=== PATIENT | female | born 2000 | race Caucasian/White ===

== ENCOUNTER → 2024-10-06 | Outpatient (CLI) | payer OTHER, SELFPAY ==
[2024-10-06 17:11] LABS: Amphetamine Urine NEGATIVE (<1000 ng/mL); Barbiturate Urine NEGATIVE (< 200 ng/mL); Benzodiazepine Urine NEGATIVE (< 200 ng/mL); Buprenorphine Urine NEGATIVE (< 200 ng/mL); Cocaine Urine NEGATIVE (< 300 ng/mL); Fentanyl, Urine NEGATIVE; Methadone Urine NEGATIVE (< 300 ng/mL); Opiates Urine NEGATIVE (< 300 ng/mL); Oxycodone, Urine NEGATIVE (< 100 ng/mL); PCP Urine NEGATIVE (< 25 ng/mL); THC Urine NEGATIVE (< 50 ng/mL)
[2024-10-06 17:11] LABS: Absolute Lymphocyte Count 1.64 X10^3/uL (0.83-4.51); Absolute Neutrophil Count 4.7 X10^3/uL (2.0-7.7); Basophil# 0.03 X10^3/uL; Basophil% 0.4 % (0-1); Eosinophil# 0.03 X10^3/uL; Eosinophils% 0.4 % (0-5); Hematocrit 35.9 % (37-47); Hemoglobin 12.3 g/dL (12.0-15.0); Lymphocyte # 1.64 X10^3/ul (0.83-4.51); Lymphocyte % 23.6 % (19-41); Mean Corp Hgb Conc 34.3 g/dL (32-36); Mean Corpuscular Hgb 30.4 pg (27.0-32.0); Mean Corpuscular Volume 88.6 fL (81-99); Mean Platelet Vol. 9.4 fl (6.2-12.0); Monocyte# 0.47 X10^3/uL; Monocyte% 6.8 % (0-10); NRBC Flagged by Analyzer 0 % (0-5); Neutrophil # 4.68 X10^3/uL (2.7-7.7); Neutrophil % 67.5 % (47-70); Platelet Count 311 K/mm3 (150-450); RBC Distribution Width CV 11.8 % (11.6-14.6); RBC Distribution Width SD 37.7 fl (35.1-43.9); Red Blood Count 4.05 M/mm3 (4.2-5.4); White Blood Count 6.9 K/mm3 (4.4-11.0)
[2024-10-06 17:56] LABS: HIV Nonreactive (Nonreactive); Hepatitis B Surface Antigen Nonreactive (Nonreactive); Hepatitis C Antibody Nonreactive (Nonreactive); Rubella IgG REAC (Nonreactive); Syphilis Antibodies Nonreactive (Nonreactive)
[2024-10-10 00:07] LABS: Chlamydia By Nucleic Acid AMP Negative (Negative); Gonococcus By Nucleic Acid AMP Negative (Negative)
== END | disposition home or self-care (01) ==
PROVIDERS: Referring Provider Advanced Practice Midwife; Visit Provider Advanced Practice Midwife
DX: O99.320 Drug use complicating pregnancy, unspecified trimester (principal); O09.90 Supervision of high risk pregnancy, unspecified, unspecified trimester; F12.91 Cannabis use, unspecified, in remission; Z3A.00 Weeks of gestation of pregnancy not specified
CPT/HCPCS: 36415; 80307; 85025; 86703; 86762; 86780; 86803; 86850; 86900; 86901; 87086; 87340; 87491; 87591; 88175; G0145

== ENCOUNTER → 2025-02-14 | Outpatient (CLI) | payer OTHER, SELFPAY ==
[2025-02-14 15:54] LABS: Hematocrit 31.6 % (37-47); Hemoglobin 10.7 g/dL (12.0-15.0); Immature Granulocytes Count 0.090 X10^3/uL (0.0-0.0); Mean Corp Hgb Conc 33.9 g/dL (32-36); Mean Corpuscular Volume 90.0 fL (81-99); Mean Platelet Vol. 8.9 fl (6.2-12.0); NRBC Flagged by Analyzer 0 % (0-5); Platelet Count 271 K/mm3 (150-450); RBC Distribution Width CV 12.3 % (11.6-14.6); RBC Distribution Width SD 39.9 fl (35.1-43.9); Red Blood Count 3.51 M/mm3 (4.2-5.4); White Blood Count 9.6 K/mm3 (4.4-11.0)
[2025-02-14 16:45] LABS: HIV Nonreactive (Nonreactive); Syphilis Antibodies Nonreactive (Nonreactive)
[2025-02-14 16:46] LABS: Glucose Challenge Gest 1H 50g 99 mg/dL (70-140)
== END | disposition home or self-care (01) ==
LOC: BWCLAB 13:03
PROVIDERS: Referring Provider Advanced Practice Midwife; Visit Provider Advanced Practice Midwife
DX: O09.92 Supervision of high risk pregnancy, unspecified, second trimester (principal); Z3A.23 23 weeks gestation of pregnancy
CPT/HCPCS: 36415; 82950; 85025; 86703; 86780

== ENCOUNTER → 2025-04-18 | Outpatient (CLI) | payer OTHER, SELFPAY | END | disposition home or self-care (01) | LOC: LABSPEC 12:30 | PROVIDERS: Referring Provider Nurse Practitioner Women's Health; Visit Provider Nurse Practitioner Women's Health | DX: O09.92 Supervision of high risk pregnancy, unspecified, second trimester (principal) | CPT/HCPCS: 87081 ==

== ENCOUNTER 2025-05-18 13:05 | Inpatient (IN) | payer OTHER, SELFPAY ==
[2025-05-18] VITALS (51 sets, daily range): BP systolic 73–142; BP diastolic 40–77; PULSE 64–121; RESP 16–17; TEMP 35.8–36.8; O2SAT 97–100; BMI 30.4
[2025-05-18 10:54] LABS: ROM Internal Control Test YES-OK TO RESULT pt. (Internal QC); ROM Patient Test Negative (Negative); Record Kit Lot#, ROM+ K3607
[2025-05-18] MEDS: 0.9% Saline Lock 10 ML Syringe IV (15:06)
[2025-05-18] MEDS: Lactated Ringers 1,000 ML 50 ML IV (15:06)
[2025-05-18 15:26] LABS: Hematocrit 36.4 % (37-47); Hemoglobin 12.6 g/dL (12.0-15.0); Immature Granulocytes Count 0.060 X10^3/uL (0.0-0.0); Mean Corp Hgb Conc 34.6 g/dL (32-36); Mean Corpuscular Volume 86.9 fL (81-99); Mean Platelet Vol. 9.3 fl (6.2-12.0); NRBC Flagged by Analyzer 0 % (0-5); Platelet Count 235 K/mm3 (150-450); RBC Distribution Width CV 13.8 % (11.6-14.6); RBC Distribution Width SD 43.0 fl (35.1-43.9); Red Blood Count 4.19 M/mm3 (4.2-5.4); White Blood Count 10.4 K/mm3 (4.4-11.0)
[2025-05-18 15:46] LABS: Syphilis Antibodies Nonreactive (Nonreactive)
[2025-05-18] MEDS: Lactated Ringers 1,000 ML 999 ML IV (16:07)
--- NOTE | 2025-05-18 16:12 | HP.PCM.OB_ITS ---
HPI - General General Date of Admission: 05/18/25 HPI Narrative TORREY MANCILLA, is a 25 F who presented with possible ROM. Membranes were found to be intact but she made change from 3 to 4cm while in triage so was admitted for active labor. GBS negative. Good movement. No vaginal bleeding. Maternal Data Information WANG Calculator Estimated Delivery Date Method Current WG Current Estimate 05/16/25 LMP (Certain) 40w 2d Other Estimates 05/19/25 Ultrasound #1 39w 6d PFSH PFSH Medical History Sports physical Home Medications ?Medication ?Instructions ?Recorded ?Last Taken ?Type [id number] 400 mcg-om3 35 mg-dha 25 1 tab PO DAILY pregn emily 09/22/24 05/17/25 History mg-epa 5 mg-fish oil chewable tablet magnesium glycinate 100 mg (as 100 mg PO QDAY 09/22/24 Unknown History glycinate) tablet famotidine 20 mg tablet (Pepcid) 20 mg PO BID #60 tabs 03/01/25 Unknown Rx Allergy/AdvReac Type Severity Reaction Status Date / Time house dust Allergy Mild sneezes Verified 05/18/25 10:25 Surgical History History of surgery Social History adopted: No household members: spouse number of children: 0 current occupational status: employed current occupation: [employer] pets and animals: No history of recent travel: No sexually active: Yes Smoking Status: Never smoker Tobacco: How many years used: 4 Smokeless tobacco user: other second hand exposure: No alcohol intake: never substance use type: marijuana and other details: June 2024 well-balanced diet: rarely or never caffeine: No eating out: 1-3 times/week what type of physical activity do you participate in: walking, weight training and other 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: 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 frequency: 5-6 times per week duration: > 90 minutes/day carmen/zoroastrianism: Baptism seatbelt use: always do you feel safe at home: Yes additional social history: [employer] History 1 Elective abortions Hx Para 0 Spontaneous abortions Hx # Term Pregnancies Ectopic pregnancies Hx # Pregnancies Multiple births # of living children 0 Visit Details Expected Delivery Route/Plan Labor Preferences- CB/BF classes: encouraged labor support person: Chip labor intervention preferences: pain management options preferred: epidural cut cord/dad catch: yes : yes PP control planned: discussed discussed possible routes of delivery and associated risks: [] special requests: [] Plans Covid status: [] Flu vaccine: done Tdap vaccine: given Rhogam: na LARC form signed: yes movement and labor precautions reviewed. Problem list reviewed and updated with the most current plan of care details and appropriate orders placed. Relevant counseling for the gestational age provided. Continue routine care and follow up unless otherwise noted in visit notes/problem list details OB Flowsheet Initial Weight: 133 lb Date -?-?-?-?-?-?-?-?-?-?-?-?- EGA Weight BP Urine Prot -?-?-?-?-?-?-?-?-?-?-?-?- Glucose FHR FuHt Pres Dilation -?-?-?-?-?-?-?-?-?-?-?-?- Effaced St Visit Note 10/06/24 -?-?-?-?-?-?-?-?-?-?-?-?- 8w 2d 133 lb 4 oz (+4 oz) 127/78 -?-?-?-?-?-?-?-?-?-?-?-?- 160 -?-?-?-?-?-?-?-?-?-?-?-?- KW- CRL cons wit h dates. declines NIPT 11/03/24 -?-?-?-?-?-?-?-?-?-?-?-?- 12w 2d 135 lb 6 oz (+2 lb 6 oz) 136/80 Negative -?-?-?-?-?-?-?-?-?-?-?-?- Negative 157 -?-?-?-?-?-?-?-?-?-?-?-?- JV- no cramping or spotting. no concerns. declines nipt. 11/29/24 -?-?-?-?-?-?-?-?-?-?-?-?- 16w 0d 142 lb 2 oz (+9 lb 2 oz) 120/76 Negative -?-?-?-?-?-?-?-?-?-?-?-?- Negative 163 -?-?-?-?-?-?-?-?-?-?-?-?- MH-No VB. Feels well. Brief US confirm FHT. 12/29/24 -?-?-?-?-?-?-?-?-?-?-?-?- 20w 2d 149 lb 8 oz (+16 lb 8 oz) 126/86 Negative -?-?-?-?-?-?-?-?-?-?-?-?- Negative 150 -?-?-?-?-?-?-?-?-?-?-?-?- SM- no vb lof go od fm no reulga rctx 01/23/25 -?-?-?-?-?-?-?-?-?-?-?-?- 23w 6d 160 lb 4 oz (+27 lb 4 oz) 124/76 Negative -?-?-?-?-?-?-?-?-?-?-?-?- Negative 140 24 -?-?-?-?-?-?-?-?-?-?-?-?- KW- No vb/alice ng. +fm. glucose and weight gain discussed. 02/14/25 -?-?-?-?-?-?-?-?-?-?-?-?- 27w 0d 169 lb 3 oz (+36 lb 3 oz) 116/72 Negative -?-?-?-?-?-?-?-?-?-?-?-?- Negative 145 27 -?-?-?-?-?-?-?-?-?-?-?-?- MH-No VB, LOF. G ood FM. Larc. 28 wk labs pending 03/01/25 -?-?-?-?-?-?-?-?-?-?-?-?- 29w 1d 172 lb 4 oz (+39 lb 4 oz) 121/74 Negative -?-?-?-?-?-?-?-?-?-?-?-?- Negative 135 30 -?-?-?-?-?-?-?-?-?-?-?-?- JV- no lof, vagi nal bleeding, or dec fm. indigestion getting worse. pepcid script sent in. 03/14/25 -?-?-?-?-?-?-?-?-?-?-?-?- 31w 0d 176 lb 7 oz (+43 lb 7 oz) 129/81 Negative -?-?-?-?-?-?-?-?-?-?-?-?- Negative 131 31 -?-?-?-?-?-?-?-?-?-?-?-?- KW- no vb/lof/ct x. good fm. Tdap today. declines flu vaccine. 03/29/25 -?-?-?-?-?-?-?-?-?-?-?-?- 33w 1d 177 lb 4 oz (+44 lb 4 oz) 132/79 Negative -?-?-?-?-?-?-?-?-?-?-?-?- Negative 130 32 Cephalic -?-?-?-?-?-?-?-?-?-?-?-?- JV- no lof, vagi nal bleeding, or dec fm. flu shot today. 04/11/25 -?-?-?-?-?-?-?-?-?-?-?-?- 35w 0d 179 lb 8 oz (+46 lb 8 oz) 115/75 Negative -?-?-?-?-?-?-?-?-?-?-?-?- Negative 130 35 Cephalic -?-?-?-?-?-?-?-?-?-?-?-?- SM- no vb lof go od fm no reuglar ctx 04/18/25 -?-?-?-?-?-?-?-?-?-?-?-?- 36w 0d 182 lb 6 oz (+49 lb 6 oz) 122/79 Negative -?-?-?-?-?-?-?-?-?-?-?-?- Negative 145 36 Cephalic 0 -?-?-?-?-?-?-?-?-?-?-?-?- 40 -3 MH-No VB, LOF, reg CTX. GBS done 04/24/25 -?-?-?-?-?-?-?-?-?-?-?-?- 36w 6d 184 lb 1 oz (+51 lb 1 oz) 118/76 Negative -?-?-?-?-?-?-?-?-?-?-?-?- Negative 145 38 Cephalic 1 -?-?-?-?-?-?-?-?-?-?-?-?- 60 -2 KW- no vb/ lof/ctx. good fm. gbs neg. 05/02/25 -?-?-?-?-?-?-?-?-?-?-?-?- 38w 0d 184 lb 8 oz (+51 lb 8 oz) 129/81 Negative -?-?-?-?-?-?-?-?-?-?-?-?- Negative 135 39 Cephalic 1 .5 -?-?-?-?-?-?-?-?-?-?-?-?- 70 -2 JV- no lof , vaginal bleeding or dec fm. patient worried baby is too big. measuring only a cm ahead but will get growth scan. 05/10/25 -?-?-?-?-?-?-?-?-?-?-?-?- 39w 1d 183 lb 8 oz (+50 lb 8 oz) 129/85 Negative -?-?-?-?-?-?-?-?-?-?-?-?- Negative 120 39 Cephalic 3 -?-?-?-?-?-?-?-?-?-?-?-?- 70 -1 SM- feelin g better about baby's size, doens't want US. no vb lof good fm irregular ctx. membranes swept. 05/16/25 -?-?-?-?-?-?-?-?-?-?-?-?- 40w 0d 189 lb 4 oz (+56 lb 4 oz) 134/83 Negative -?-?-?-?-?-?-?-?-?-?-?-?- Negative 139 40 Cephalic 3 -?-?-?-?-?-?-?-?-?-?-?-?- 80 -2 JV- no lof , vaginal bleeding, or dec fm. requesting IOL thursday NST FHR Rate Baby A Baseline: 125 Variability:: Moderate Accelerations:: 15 x 15 Decelerations:: None NST Reactive:: Yes FHR Category:: Category I Uterine Activity:: q3-5 minutes ROS Constitutional Constitutional: Reports systems reviewed and no addt'l complaints, except as documented Vital Signs Vital Signs Vital Signs: 05/18/25 10:31 05/18/25 10:31 05/18/25 10:31 Temperature Temperature Source Pulse Rate 95 Respiratory Rate Blood Pressure 125/73 H BP Systolic 125 BP Diastolic 73 Pulse Ox 97 05/18/25 10:31 05/18/25 14:40 05/18/25 14:40 Temperature 96.6 F L Temperature Source Temporal Pulse Rate 117 H Respiratory Rate Blood Pressure BP Systolic BP Diastolic Pulse Ox 05/18/25 14:40 05/18/25 14:40 05/18/25 14:40 Temperature 98.2 F Temperature Source Pulse Rate Respiratory Rate 16 Blood Pressure BP Systolic BP Diastolic Pulse Ox 98 05/18/25 14:41 05/18/25 14:41 Temperature Temperature Source Pulse Rate 98 Respiratory Rate Blood Pressure 124/70 H BP Systolic 124 BP Diastolic 70 Pulse Ox Weight Weight: 188 lb 4 oz Body Mass Index (BMI) 30.4 PRE- weight 133 lb PRE- Body Mass Index 21.4 (BMI) Physical Exam Const alert and no apparent distress HEENT normocephalic Head and Scalp: atraumatic Neck full ROM and supple Resp normal respiratory effort GI non-tender Inspection: gravid Narrative: most recent SVE 4cm Extremity normal to inspection General Extremity: Negative for calf tenderness Labs Labs Labs: Blood Type O POSITIVE Antibody Screen NEGATIVE Hct, (37-47) 36.4 % L Hgb, (12.0-15.0) 12.6 g/dL Syphilis Total Ab, (Nonreactive) Nonreactive Rubella IgG Antibody, (Nonreactive) REAC Hep Bs Antigen, (Nonreactive) Nonreactive Hepatitis C Antibody, (Nonreactive) Nonreactive Chlamydia DNA (FELICE), (Negative) Negative N.gonorrhoeae DNA (FELICE), (Negative) Negative HIV 1&2 Antibody, (Nonreactive) Nonreactive Glucose 1 Hr 50 gm, (70-140) 99 mg/dL Assessment & Plan (1) Labor and delivery indication for care or intervention: PLAN: Patient presents IAL, plan expectant management for , pitocin/AROM PRN Pain management: plans epidural. GBS negative. Management of any complications: none I have reviewed the [facility] and made any clinically relevant updates. (2) : QUALIFIERS: Weeks of gestation: 40 weeks Qualified Code(s): Z3A.40 - 40 weeks gestation of COMMENT: Neg GBS. declines NIPT, carrier and AFP, normal anatomy/consistent dates (3) History of marijuana use: COMMENT: daily, quit 06/2024. counseling provided. aware of random drug testing
[2025-05-18] MEDS: fentaNYL-bupivacaine (epidural) 100 ML BAG EPIDURAL ×2 (17:09→21:38)
[2025-05-18] MEDS: LACTATED RINGERS 500 ML 999 ML IV (18:17)
[2025-05-18] MEDS: Oxytocin 15 Units/NS 250ml 15 UNITS/250 ML IV.SOLN 2 UNITS IV (21:09)
[2025-05-18] MEDS: Lactated Ringers 1,000 ML 200 ML IV (21:09)
--- NOTE | 2025-05-18 22:20 | PCM.PN.BLA ---
Progress Note Patient comfortable with epidural. AROM performed at 1742 for small amount of clear fluid. IUPC placed by Katherine Ramesh RN and pitocin started due to no further cervical change. Assessment & Plan Assessment/Plan (1) Labor and delivery indication for care or intervention: PLAN: Continue titrating pitocin as needed. Anticipate tonight. NST FHR Rate Baby A Baseline: 120 Variability:: Moderate Accelerations:: 15 x 15 Decelerations:: Variable (isolated) NST Reactive:: Yes FHR Category:: Category I (overall) Uterine Activity:: q2-4 minutes, adequate MVUs
[2025-05-19] VITALS (36 sets, daily range): BP systolic 90–133; BP diastolic 56–79; PULSE 81–114; RESP 14–16; TEMP 36.4–37.2; O2SAT 97–98
--- OUTSIDE RECORDS SUMMARY | 2025-05-19 02:28 | XMS RPT_ITS | CCD ---
Author Organization [facility] Team Providers Care Science Instructor Name Role Phone Duy PERSAUD, Adan Edmonds Primary Care Provider EZ PINEDA Attending Unavailable ADAN BABCOCK Primary Care Unavailable Joceline Grande CNM Attending Provider [phone]) Joceline Grande CNM Referring Provider 1(330) Dr. Maribel Martínez DO Attending Provider Garima Becker Attending Provider [phone] LISA PRIMARY CAREMD Primary Care Unavailable LYN QUINN Attending Unavailable MARIBEL PATEL Referring Unavailab Dr. Lovely May MD Attending Provider [phone] Joceline Grande CNM Attending Provider [phone](330) Joceline Grande CNM Referring Provider 1(330) Dr. Maribel Martínez DO Attending Provider Dr. Lovely Arguello MD Attending Physician Joceline Grande CNM Attending Physician [phone] Garima Becker Attending Physician [phone] Dr. Maribel Martínez DO Attending Physician Garima Becker Referring Provider Joceline Grande CNM Attending Physician Amparo POMPA-Garima Cuellar Attending Physician [phone] Joceline Grande CNM Referring Provider [phone](330) Dr. Maribel Martínez DO Attending Physician Dr. Lovely Arguello MD Attending Physician Amparo POMPA-Garima Cuellar Referring Provider Maribel Martínez Attending UnavailJoceline Rasmussen Attending Unavailable Joceline Grande Referring Unavailable Joceline Grande Attending Unavailable Altagracia Chew, Maribel Attending UnavailLovely Manjarrez Attending Unavailable Amparo POMPA, Garima Attending Unavailable Joceline Grande Attending Unavailable Altagracia Chew, Maribel Attending UnavailJoceline Rasmussen Attending Unavailable Lovely Arguello Attending Unavailable Lovely Arguello Attending Unavailable Amparo FITTER [employer] TURNER, aGrima Attending Unavailable Joceline Grande Attending Unavailable Altagracia Chew, Maribel Attending Unavailtoni Christensen NP, Garima Attending Unavailable Altagracia Chew, Maribel Attending Unavailtoni Christensen NP, Garima Attending Unavailable Amparo POMPA, Garima Referring Unavailable Joceline Grande Referring Unavailable Joceline Grande Attending Unavailable Allergies Allergy Classification Reported Allergen(s) Allergy Type Date of Onset Reaction(s) Facility (11 sources) house dust allergenic extract Drug Allergy 10-06-2024 [facility] (1 source) house dust allergenic extract Drug Allergy 05-10-2025 [facility] Repository Medications Current Medications Medication Drug Class(es) Dates Sig (Normalized) Sig (Original) Ethinyl Estradiol / Ferrous fumarate / Norethindrone (4 sources) Estrogen Start: 02-18-2022 norethindrone-ethi nyl estradiol (Camron Fe 07/18) 1-20 MG-MCG tablet 02/18/2022 Active Start: 02-18-2022 norethindrone- ethinyl estradiol (Camron Fe 07/18) 1-20 MG-MCG tablet famotidine 20 mg oral tablet (5 sources) Histamine-2 Receptor Antagonist Start: 03-01-2025 take 1 tablet by mouth twice daily Famotidine (Pepcid) 20 mg tablet Active 20 mg PO TWICE A DAY 60 4 February 28, 2025 11:00pm Complies with drug therapy magnesium glycinate 100 mg oral tablet (11 sources) Start: 09-22-2024 take 1 tablet by mouth once daily Magnesium Glycinate 100 mg tablet Active 100 mg PO daily September 21, 2024 11:00pm Complies with drug therapy [id number]-Bp-[id number]-Mbs-D pa-Fish Oil 400 mcg-35 mg -25 mg-5 mg tablet,chewable (11 sources) Start: 09-22-2024 Atr77-If-Af9-K henry- Epa-Fish Oil 400 mcg-35 mg -25 mg-5 mg tablet,chewable Active {tbl} PO September 21, 2024 11:00pm Complies with drug therapy Start: 09-22-2024 [id number]-Mt-Zf2-W henry-Epa-Fish Oil 400 mcg-35 mg -25 mg-5 mg tablet,chewable Active {tbl} PO September 22, 2024 12:00am Complies with drug therapy Start: 09-22-2024 [id number]-Pp-Eq5-I henry-Epa-Fish Oil 400 mcg-35 mg -25 mg-5 mg tablet,chewable Active {tbl} PO September 22, 2024 12:00am spironolactone 50 mg oral tablet (4 sources) Aldosterone Antagonist Start: 01-02-2023 take 1 tablet by mouth once daily spironolactone (Aldactone) 50 MG tablet Take 50 mg by mouth daily. 01/02/2023 Active SUMAtriptan 25 mg oral tablet (4 sources) Serotonin-1b and Serotonin-1d Receptor Agonist Start: 01-05-2023 SUMAtriptan (Imitrex) 25 MG tablet Indications: Sudden onset unilateral headache Take 1 tablet (25 mg) by mouth Once as needed for migraine for up to 30 doses. May repeat dose once in 2 hours if no relief. Do not exceed 2 doses in 24 hours. 30 tablet 01/05/2023 Active Problems Active Problems Problem Classification Problem Date Documented Date Episodic/Chronic Administrative/social admission (11 sources) Special examination status; Translations: [Encounter for examination for participation in sport] 09-22-2024 Episodic Conditions associated with dizziness or vertigo (1 source) Dizziness; Translations: [Dizziness and giddiness] 01-05-2023 Episodic Immunizations and screening for infectious disease (2 sources) Requires diphtheria, tetanus and pertussis vaccination; Translations: [Encounter for immunization] Onset: 03-14-2025 02-02-2023 Episodic Nausea and vomiting (1 source) Nausea and vomiting; Translations: [Nausea with vomiting, unspecified] 07-10-2023 Episodic Other complications of (20 sources) High risk ; Translations: [Supervision of high risk , unspecified, unspecified trimester] 10-10-2024 Episodic Comment on above: PRR, , WANG 05/16 Chip PRR, , WANG 05/16 girl Chip Other complications of (1 source) Excessive growth affecting management of mother; Translations: [Maternal care for excessive growth, unspecified trimester, not applicable or unspecified] 05-02-2025 Episodic Other complications of (1 source) Supervision of high risk , unspecified, second trimester; Translations: [Supervision of high risk , unspecified, second trimester] Onset: 05-10-2025 Episodic Other complications of (1 source) Maternal care for excessive growth, unspecified trimester, not applicable or unspecified; Translations: [Maternal care for excessive growth, unspecified trimester, not applicable or unspecified] Onset: 05-02-2025 Episodic Other ear and sense organ disorders (2 sources) Impacted cerumen, right ear; Translations: [Impacted cerumen, right ear] Onset: 08-15-2024 Episodic Other ear and sense organ disorders (2 sources) Impacted cerumen in right ear; Translations: [Impacted cerumen, right ear] Onset: 08-15-2024 08-15-2024 Episodic Other and delivery including normal (20 sources) ; Translations: [Encounter for supervision of normal , unspecified, unspecified trimester] 10-06-2024 Episodic Comment on above: declines NIPT declines NIPT, aditya er and AFP declines NIPT, aditay er and AFP, normal anatomy/consistent dates Neg GBS. declines NI PT, carrier and AFP, normal anatomy/consistent dates Residual codes; unclassified (1 source) 39 weeks gestation of ; Translations: [39 weeks gestation of ] Onset: 05-10-2025 Episodic Residual codes; unclassified (1 source) 38 weeks gestation of ; Translations: [38 weeks gestation of ] Onset: 05-02-2025 Episodic Residual codes; unclassified (1 source) 36 weeks gestation of ; Translations: [36 weeks gestation of ] Onset: 04-24-2025 Episodic Residual codes; unclassified (1 source) 31 weeks gestation of ; Translations: [31 weeks gestation of ] Onset: 03-14-2025 Episodic Residual codes; unclassified (1 source) 29 weeks gestation of ; Translations: [29 weeks gestation of ] Onset: 03-01-2025 Episodic Substance-related disorders (20 sources) History of clinical finding in subject; Translations: [History of marijuana use] 09-22-2024 Chronic Comment on above: daily, quit 06/2024. counseling provided. aware of random drug testing Unclassified (1 source) Cannabis use, unspecified, in remission; Translations: [Cannabis use, unspecified, in remission] Onset: 05-10-2025 Past or Other Problems Problem Classification Problem Date Documented Da te Episodic/Chronic Abdominal pain (7 sources) Pain in pelvis; Translations: [Pelvic and perineal pain] Onset: 04-01-2022 Resolved: 01-05-2023 04-10-2022 Episodic Headache; including migraine (6 sources) Headache; Translations: [Sudden onset unilateral headache] Onset: 01-05-2023 01-05-2023 Episodic Other complications of (1 source) Supervision of high risk , unspecified, unspecified trimester; Translations: [Supervision of high risk , unspecified, unspecified trimester] Onset: 10-06-2024 Episodic Other screening for suspected conditions (not mental disorders or infectious disease) (2 sources) Patient encounter status; Translations: [Encounter for screening for malignant neoplasm of cervix] Onset: 10-06-2024 02-02-2023 Episodic Residual codes; unclassified (1 source) 23 weeks gestation of ; Translations: [23 weeks gestation of ] Onset: 01-23-2025 Episodic Residual codes; unclassified (1 source) 8 weeks gestation of ; Translations: [8 weeks gestation of ] Onset: 10-06-2024 Episodic Substance-related disorders (1 source) Drug use complicating , unspecified trimester; Translations: [Drug use complicating , unspecified trimester] Onset: 11-01-2024 Episodic Urinary tract infections (7 sources) Acute cystitis; Translations: [Acute cystitis with hematuria] Onset: 04-01-2022 Resolved: 01-05-2023 04-10-2022 Episodic Results Test Name Value Interpretation Reference Range Facility Senior Materials [facility]anner Office Visit Reporton 05-10-2025 Senior Materials Planner Office Visit Report [facility] [address], [address] [place] [address] OFFICE VISIT Date of Service: 05/10/25 MR#: [id number] Acct: [id number] Name: NICA MANCILLA Rep #: [id number] 8 : 2000 Provider: Dr. Lovely meeks MD Age/Sex: 25/F Location: [facility] [place], [place] Status: Signed Intake Vital Signs 03/14/25 09:38 05/02/25 09:47 05/10/25 11:27 Height 5 ft 6.5 in 5 ft 6.5 in 5 ft 6.5 in Weight: 183 lb 8 oz BMI 29.1 BP 129/85 H Intake Visit Reasons: 39wk ob Automatic Profile Shaper Operator Required: No Allergies house dust Allergy (Mild, Verified 05/10/25 11:28) sneezes Medications ???Medication ???Instructions ???Recorded ???Confirmed ???Type [id number] 400 mcg-om3 35 mg-dha 25 tab PO 09/22/24 05/10/25 History mg-epa 5 mg-fish oil chewable tablet magnesium glycinate 100 mg (as 100 mg PO QDAY 09/22/24 05/10/25 H istory glycinate) tablet famotidine 20 mg tablet (Pepcid) 20 mg PO BID #60 tabs 03/01/2506/22 Rx Last Menstrual Period: 08/09/24 Zika: Zika virus screening: Negative : No PFSH PFSH Medical History Sports physical Social History adopted: No household members: spouse number of children: 0 current occupational status: employed current occupation: [employer] pets and animals: No history of recent travel: No sexually active: Yes Smoking Status: Former smoker Tobacco: How many years used: 4 Smokeless tobacco user: other second hand exposure: No alcohol intake: never substance use type: marijuana and other details: June 2024 well-balanced diet: rarely or never caffeine: No eating out: 1-3 times/week what type of physical activity do you participate in: walking, weight training and other details: 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 OB Visit WANG Calculator Estimated Delivery Date Method Current WG Current Estimate 05/16/25 LMP (Certain) 39w 1d Other Estimates 05/19/25 Ultrasound #1 38w 5d Expected Delivery Route/Plan Labor Preferences- CB/BF classes: encouraged labor support person: Chip labor intervention preferences: pain management options preferred: epidural cut cord/dad catch: yes : yes PP control planned: discussed discussed possible routes of delivery and associated risks: [] special requests: [] Specific Issue/Plans Covid status: [] Flu vaccine: done Tdap vaccine: given Rhogam: na LARC form signed: yes movement and labor precautions reviewed. Problem list reviewed and updated with the most current plan of care details and appropriate orders placed. Relevant counseling for the gestational age provided. Continue routine care and follow up unless otherwise noted in visit notes/problem list details Initial Weight: 133 lb Date -???-???-???-???-?? ?-???-???-???-???-? ??-???-???- EGA Weight BP Urine Prot -???-???-???-???-?? ?-???-???-???-???-? ??-???-???- Glucose FHR FuHt Pres Dilation -???-???-???-???-?? ?-???-???-???-???-? ??-???-???- Effaced St Visit Note 10/06/24 -???-???-???-???-?? ?-???-???-???-???-? ??-???-???- 8w 2d 133 lb 4 oz (+4 oz) 127/78 -???-???-???-???-?? ?-???-???-???-???-? ??-???-???- 160 -???-???-???-???-?? ?-???-???-???-???-? ??-???-???- KW- CRL cons with dates. declines NIPT 11/03/24 -???-???-???-???-?? ?-???-???-???-???-? ??-???-???- 12w 2d 135 lb 6 oz (+2 lb 6 oz) 136/80 Negative -???-???-???-???-?? ?-???-???-???-???-? ??-???-???- Negative 157 -???-???-???-???-?? ?-???-???-???-???-? ??-???-???- JV- no cramp ing or spotting. no concerns. declines nipt. 11/29/24 -???-???-???-???-?? ?-???-???-???-???-? ??-???-???- 16w 0d 142 lb 2 oz (+9 lb 2 oz) 120/76 Negative -???-???-???-???-?? ?-???-???-???-???-? ??-???-???- Negative 163 -???-???-???-???-?? ?-???-???-???-???-? ??-???-???- -No VB. Fe els well. Brief US confirm FHT. 12/29/24 -???-???-???-???-?? ?-???-???-???-???-? ??-???-???- 20w 2d 149 lb 8 oz (+16 lb 8 oz) 126/86 Negative -???-???-???-???-?? ?-???-???-???-???-? ??-???-???- Negative 150 -???-???-???-???-?? ?-???-???-???-???-? ??-???-???- SM- no vb lo f good fm no reulga rctx 01/23/25 -???-???-???-???-?? ?-???-???-???-???-? ??-???-???- (more content not included)... Normal [facility] Laboratory - Chemistry and C hemistry - challengeOrdered By: Maribel Chew on 05-02-2025 Glucose Ql (U) Negative [facility] Laboratory - UrinalysisOrder ed By: Maribel Chew on 05-02-2025 Protein Ql (U) Negative [facility] Senior Materials Planner Office Visit Reporton 05-02-2025 Senior Materials Planner Office Visit Report [facility] [address], [address] [place] [address] OFFICE VISIT Date of Service: 05/02/25 MR#: [id number] Acct: [id number] Name: NICA MANCILLA Rep #: [id number] 4 : 2000 Provider: Dr. Maribel Sidhu DO Age/Sex: 25/F Location: [facility] [place], [place] Status: Signed Intake Vital Signs 03/14/25 09:38 04/24/25 10:59 05/02/25 09:47 Height 5 ft 6.5 in 5 ft 6.5 in 5 ft 6.5 in Weight: 184 lb 8 oz BMI 29.3 BP 129/81 H Intake Visit Reasons: 38wk ob Chief Complaint: 38wk OB Automatic Profile Shaper Operator Required: No Is patient in pain?: No Allergies house dust Allergy (Mild, Verified 05/02/25 09:46) sneezes Medications ???Medication ???Instructions ???Recorded ???Confirmed ???Type [id number] 400 mcg-om3 35 mg-dha 25 tab PO 09/22/24 05/02/25 History mg-epa 5 mg-fish oil chewable tablet magnesium glycinate 100 mg (as 100 mg PO QDAY 09/22/24 05/02/25 H istory glycinate) tablet famotidine 20 mg tablet (Pepcid) 20 mg PO BID #60 tabs 03/01/2510/21 Rx Last Menstrual Period: 08/09/24 : No Have you fallen in the past year?: No PFSH PFSH Medical History Sports physical Social History adopted: No household members: spouse number of children: 0 current occupational status: employed current occupation: [employer] pets and animals: No history of recent travel: No sexually active: Yes Smoking Status: Former smoker Tobacco: How many years used: 4 Smokeless tobacco user: other second hand exposure: No alcohol intake: never substance use type: marijuana and other details: June 2024 well-balanced diet: rarely or never caffeine: No eating out: 1-3 times/week what type of physical activity do you participate in: walking, weight training and other details: 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 frequency: 5-6 times per week duration: > 90 minutes/day carmen/jain: Rastafari seatbelt use: always do you feel safe at home: Yes additional social history: [employer] - [employer] History 1 Elective abortions Hx Para 0 Spontaneous abortions Hx # Term Pregnancies Ectopic pregnancies Hx # Pregnancies Multiple births # of living children 0 HPI 38wk ob Details: NICA MANCILLA is a 25 year old who presents for routine OB visit. OB Visit WANG Calculator Estimated Delivery Date Method Current WG Current Estimate 05/16/25 LMP (Certain) 38w 0d Other Estimates 05/19/25 Ultrasound #1 37w 4d Expected Delivery Route/Plan Labor Preferences- CB/BF classes: encouraged labor support person: Chip labor intervention preferences: pain management options preferred: epidural cut cord/dad catch: yes : yes PP control planned: discussed discussed possible routes of delivery and associated risks: [] special requests: [] Specific Issue/Plans Covid status: [] Flu vaccine: done Tdap vaccine: given Rhogam: na LARC form signed: yes movement and labor precautions reviewed. Problem list reviewed and updated with the most current plan of care details and appropriate orders placed. Relevant counseling for the gestational age provided. Continue routine care and follow up unless otherwise noted in visit notes/problem list details Initial Weight: 133 lb Date -???-???-???-???-?? ?-???-???-???-???-? ??-???-???- EGA Weight BP Urine Prot -???-???-???-???-?? ?-???-???-???-???-? ??-???-???- Glucose FHR FuHt Pres Dilation -???-???-???-???-?? ?-???-???-???-???-? ??-???-???- Effaced St Visit Note 10/06/24 -???-???-???-???-?? ?-???-???-???-???-? ??-???-???- 8w 2d 133 lb 4 oz (+4 oz) 127/78 -???-???-???-???-?? ?-???-???-???-???-? ??-???-???- 160 -???-???-???-???-?? ?-???-???-???-???-? ??-???-???- KW- CRL cons with dates. declines NIPT 11/03/24 -???-???-???-???-?? ?-???-???-???-???-? ??-???-???- 12w 2d 135 lb 6 oz (+2 lb 6 oz) 136/80 Negative -???-???-???-???-?? ?-???-???-???-???-? ??-???-???- Negative 157 -???-???-???-???-?? ?-???-???-???-???-? ??-???-???- JV- no cramp ing or spotting. no concerns. declines nipt. 11/29/24 -???-???-???-???-?? ?-???-???-???-???-? ??-???-???- 16w 0d 142 lb 2 oz (+9 lb 2 oz) 120/76 Negative -???-???-???-???-?? ?-???-???-???-???-? ??-???-???- Negative 163 -???-???-???-???-?? ?-???-???-???-???-? ??-???-???- MH-No VB. Fe els well. Brief US confirm FHT. 12/29/24 -???-???-???-???-?? ?-???-???-???-???-? ??-???-???- 20w 2d 149 lb 8 oz (+16 lb 8 oz) 126/86 Negative -???-???-???-???-?? ?-???-???-???-???-? ??-???-???- Negative 150 -???-???-???-???-?? ?-???-???-???-???-? ??-???-???- SM- no vb lo f good fm no reulga rctx 01/23/25 - (more content not included)... Normal [facility] Laboratory - Chemistry and C hemistry - challengeOrdered By: Joceline Grande on 04-24-2025 Glucose Ql (U) Negative [facility] Laboratory - UrinalysisOrder ed By: Joceline Grande on 04-24-2025 Protein Ql (U) Negative [facility] Senior Materials Planner Office Visit Reporton 04-24-2025 Senior Materials Planner Office Visit Report [facility] [address], [address] [place] [address] OFFICE VISIT Date of Service: 04/24/25 MR#: [id number] Acct: [id number] Name: NICA MANCILLA Rep #: [id number] 3 : 2000 Provider: ARNIE Felton ams Age/Sex: 25/F Location: [facility] [place], [place] Status: Signed Intake Vital Signs 03/14/25 09:38 04/18/25 09:35 04/24/25 10:59 Height 5 ft 6.5 in 5 ft 6.5 in 5 ft 6.5 in Weight: 184 lb 1 oz BMI 29.2 BP 118/76 Intake Visit Reasons: 36wk6d ob Chief Complaint: 36wk OB Automatic Profile Shaper Operator Required: No Is patient in pain?: No Allergies house dust Allergy (Mild, Verified 04/24/25 10:56) sneezes Medications ???Medication ???Instructions ???Recorded ???Confirmed ???Type [id number]-[id number] 400 mcg-om3 35 mg-dha 25 tab PO 09/22/24 04/24/25 History mg-epa 5 mg-fish oil chewable tablet magnesium glycinate 100 mg (as 100 mg PO QDAY 09/22/24 04/24/25 H istory glycinate) tablet famotidine 20 mg tablet (Pepcid) 20 mg PO BID #60 tabs 03/01/25 Rx Last Menstrual Period: 08/09/24 : No Have you fallen in the past year?: No PFSH PFSH Medical History Sports physical Social History adopted: No household members: spouse number of children: 0 current occupational status: employed current occupation: [employer] pets and animals: No history of recent travel: No sexually active: Yes Smoking Status: Former smoker Tobacco: How many years used: 4 Smokeless tobacco user: other second hand exposure: No alcohol intake: never substance use type: marijuana and other details: June 2024 well-balanced diet: rarely or never caffeine: No eating out: 1-3 times/week what type of physical activity do you participate in: walking, weight training and other details: 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 frequency: 5-6 times per week duration: > 90 minutes/day carmen/jain: Rastafari seatbelt use: always do you feel safe at home: Yes additional social history: Chip - [employer] History 1 Elective abortions Hx Para 0 Spontaneous abortions Hx # Term Pregnancies Ectopic pregnancies Hx # Pregnancies Multiple births # of living children 0 HPI 36wk6d ob Details: NICA MANCILLA is a 25 year old who presents for routine OB visit. OB Visit WANG Calculator Estimated Delivery Date Method Current WG Current Estimate 05/16/25 LMP (Certain) 36w 6d Other Estimates 05/19/25 Ultrasound #1 36w 3d Expected Delivery Route/Plan Labor Preferences- CB/BF classes: encouraged labor support person: Chip labor intervention preferences: pain management options preferred: epidural cut cord/dad catch: yes : yes PP control planned: discussed discussed possible routes of delivery and associated risks: [] special requests: [] Specific Issue/Plans Covid status: [] Flu vaccine: done Tdap vaccine: given Rhogam: na LARC form signed: yes movement and labor precautions reviewed. Problem list reviewed and updated with the most current plan of care details and appropriate orders placed. Relevant counseling for the gestational age provided. Continue routine care and follow up unless otherwise noted in visit notes/problem list details Initial Weight: 133 lb Date -???-???-???-???-?? ?-???-???-???-???-? ??-???-???- EGA Weight BP Urine Prot -???-???-???-???-?? ?-???-???-???-???-? ??-???-???- Glucose FHR FuHt Pres Dilation -???-???-???-???-?? ?-???-???-???-???-? ??-???-???- Effaced St Visit Note 10/06/24 -???-???-???-???-?? ?-???-???-???-???-? ??-???-???- 8w 2d 133 lb 4 oz (+4 oz) 127/78 -???-???-???-???-?? ?-???-???-???-???-? ??-???-???- 160 -???-???-???-???-?? ?-???-???-???-???-? ??-???-???- KW- CRL cons with dates. declines NIPT 11/03/24 -???-???-???-???-?? ?-???-???-???-???-? ??-???-???- 12w 2d 135 lb 6 oz (+2 lb 6 oz) 136/80 Negative -???-???-???-???-?? ?-???-???-???-???-? ??-???-???- Negative 157 -???-???-???-???-?? ?-???-???-???-???-? ??-???-???- JV- no cramp ing or spotting. no concerns. declines nipt. 11/29/24 -???-???-???-???-?? ?-???-???-???-???-? ??-???-???- 16w 0d 142 lb 2 oz (+9 lb 2 oz) 120/76 Negative -???-???-???-???-?? ?-???-???-???-???-? ??-???-???- Negative 163 -???-???-???-???-?? ?-???-???-???-???-? ??-???-???- -No VB. Fe els well. Brief US confirm FHT. 12/29/24 -???-???-???-???-?? ?-???-???-???-???-? ??-???-???- 20w 2d 149 lb 8 oz (+16 lb 8 oz) 126/86 Negative -???-???-???-???-?? ?-???-???-???-???-? ??-???-???- Negative 150 -???-???-???-???-?? ?-???-???-???-???-? ??-???-???- SM- no vb lo f good fm no reulga rctx 01/23/25 -???-???- (more content not included)... Normal [facility] Rule out Beta Strep (Grp. B) on 04-20-2025 DANIEL Group B Beta Streptococcus is not isolated. Normal [facility] Comment on above: Performed By: #### M [id number] ####[facility] [address] [place], [address] Laboratory - Chemistry and C hemistry - challengeOrdered By: Garima Christensen on 04-18-2025 Glucose Ql (U) Negative [facility] Laboratory - UrinalysisOrder ed By: Garima Christensen on 04-18-2025 Protein Ql (U) Negative [facility] Senior Materials Planner Office Visit Reporton 04-18-2025 Senior Materials Planner Office Visit Report [facility]'s [address], [address] [place] [address] OFFICE VISIT Date of Service: 04/18/25 MR#: [id number] Acct: [id number] Name: NICA MANCILLA Rep #: [id number] 3 : 2000 Provider: LACIE mars Age/Sex: 25/F Location: [facility] [place], [place] Status: Signed Intake Vital Signs 03/14/25 09:38 04/11/25 10:53 04/18/25 09:35 Height 5 ft 6.5 in 5 ft 6.5 in 5 ft 6.5 in Weight: 182 lb 6 oz BMI 29.0 BP 122/79 H Intake Visit Reasons: 36wk ob Automatic Profile Shaper Operator Required: No Is patient in pain?: No Allergies house dust Allergy (Mild, Verified 04/18/25 09:35) sneezes Medications ???Medication ???Instructions ???Recorded ???Confirmed ???Type [id number] 400 mcg-om3 35 mg-dha 25 tab PO 09/22/24 04/18/25 History mg-epa 5 mg-fish oil chewable tablet magnesium glycinate 100 mg (as 100 mg PO QDAY 09/22/24 04/18/25 H istory glycinate) tablet famotidine 20 mg tablet (Pepcid) 20 mg PO BID #60 tabs 03/01/25 Rx Last Menstrual Period: 08/09/24 Zika: Zika virus screening: Negative : No PFSH PFSH Medical History Sports physical Social History adopted: No household members: spouse number of children: 0 current occupational status: employed current occupation: [employer] pets and animals: No history of recent travel: No sexually active: Yes Smoking Status: Former smoker Tobacco: How many years used: 4 Smokeless tobacco user: other second hand exposure: No alcohol intake: never substance use type: marijuana and other details: June 2024 well-balanced diet: rarely or never caffeine: No eating out: 1-3 times/week what type of physical activity do you participate in: walking, weight training and other 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 OB Visit WANG Calculator Estimated Delivery Date Method Current WG Current Estimate 05/16/25 LMP (Certain) 36w 0d Other Estimates 05/19/25 Ultrasound #1 35w 4d Expected Delivery Route/Plan Labor Preferences- CB/BF classes: encouraged labor support person: Chip labor intervention preferences: pain management options preferred: epidural cut cord/dad catch: yes : yes PP control planned: discussed discussed possible routes of delivery and associated risks: [] special requests: [] Specific Issue/Plans Covid status: [] Flu vaccine: done Tdap vaccine: given Rhogam: na LARC form signed: yes movement and labor precautions reviewed. Problem list reviewed and updated with the most current plan of care details and appropriate orders placed. Relevant counseling for the gestational age provided. Continue routine care and follow up unless otherwise noted in visit notes/problem list details Initial Weight: 133 lb Date -???-???-???-???-?? ?-???-???-???-???-? ??-???-???- EGA Weight BP Urine Prot -???-???-???-???-?? ?-???-???-???-???-? ??-???-???- Glucose FHR FuHt Pres Dilation -???-???-???-???-?? ?-???-???-???-???-? ??-???-???- Effaced St Visit Note 10/06/24 -???-???-???-???-?? ?-???-???-???-???-? ??-???-???- 8w 2d 133 lb 4 oz (+4 oz) 127/78 -???-???-???-???-?? ?-???-???-???-???-? ??-???-???- 160 -???-???-???-???-?? ?-???-???-???-???-? ??-???-???- KW- CRL cons with dates. declines NIPT 11/03/24 -???-???-???-???-?? ?-???-???-???-???-? ??-???-???- 12w 2d 135 lb 6 oz (+2 lb 6 oz) 136/80 Negative -???-???-???-???-?? ?-???-???-???-???-? ??-???-???- Negative 157 -???-???-???-???-?? ?-???-???-???-???-? ??-???-???- JV- no cramp ing or spotting. no concerns. declines nipt. 11/29/24 -???-???-???-???-?? ?-???-???-???-???-? ??-???-???- 16w 0d 142 lb 2 oz (+9 lb 2 oz) 120/76 Negative -???-???-???-???-?? ?-???-???-???-???-? ??-???-???- Negative 163 -???-???-???-???-?? ?-???-???-???-???-? ??-???-???- MH-No VB. Fe els well. Brief US confirm FHT. 12/29/24 -???-???-???-???-?? ?-???-???-???-???-? ??-???-???- 20w 2d 149 lb 8 oz (+16 lb 8 oz) 126/86 Negative -???-???-???-???-?? ?-???-???-???-???-? ??-???-???- Negative 150 -???-???-???-???-?? ?-???-???-???-???-? ??-???-???- SM- no vb lo f good fm no reulga rctx 01/23/25 -???-???-???-???-?? ?-???-? (more content not included)... Normal [facility] Screening beta-hemolytic Str eptococcus cultureOrdered By: Garima Christensen on 04-18-2025 Beta-hemolytic Streptococcus culture Group B Beta Streptococcus is not isolated. [facility] Beta-hemolytic Streptococcus culture Group B Beta Streptococcus is not isolated. [facility] Laboratory - Chemistry and C hemistry - challengeOrdered By: Lovely Arguello on 04-11-2025 Glucose Ql (U) Negative [facility] Laboratory - UrinalysisOrder ed By: Lovely Arguello on 04-11-2025 Protein Ql (U) Negative [facility] Senior Materials Planner Office Visit Reporton 04-11-2025 Senior Materials Planner Office Visit Report [facility]'s [address], [address] [place] [address] OFFICE VISIT Date of Service: 04/11/25 MR#: [id number] Acct: [id number] Name: NICA MANCILLA Rep #: [id number] 6 : 2000 Provider: Dr. Lovely meeks MD Age/Sex: 25/F Location: [facility] – [place], [place] Status: Signed Intake Vital Signs 01/23/25 11:21 03/29/25 10:15 04/11/25 10:53 Height 5 ft 6.5 in 5 ft 6.5 in 5 ft 6.5 in Weight: 179 lb 8 oz BMI 28.5 BP 115/75 Intake Visit Reasons: 35wk ob Automatic Profile Shaper Operator Required: No Is patient in pain?: No Allergies house dust Allergy (Mild, Verified 04/11/25 10:53) sneezes Medications ???Medication ???Instructions ???Recorded ???Confirmed ???Type [id number] 400 mcg-om3 35 mg-dha 25 tab PO 09/22/24 04/11/25 History mg-epa 5 mg-fish oil chewable tablet magnesium glycinate 100 mg (as 100 mg PO QDAY 09/22/24 04/11/25 H istory glycinate) tablet famotidine 20 mg tablet (Pepcid) 20 mg PO BID #60 tabs 03/01/25 Rx Last Menstrual Period: 08/09/24 Zika: Zika virus screening: Negative : No PFSH PFSH Medical History Sports physical Social History adopted: No household members: spouse number of children: 0 current occupational status: employed current occupation: [employer] pets and animals: No history of recent travel: No sexually active: Yes Smoking Status: Former smoker Tobacco: How many years used: 4 Smokeless tobacco user: other second hand exposure: No alcohol intake: never substance use type: marijuana and other details: June 2024 well-balanced diet: rarely or never caffeine: No eating out: 1-3 times/week what type of physical activity do you participate in: walking, weight training and other details: 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 frequency: 5-6 times per week duration: > 90 minutes/day carmen/jain: Rastafari seatbelt use: always do you feel safe at home: Yes additional social history: [employer] History 1 Elective abortions Hx Para 0 Spontaneous abortions Hx # Term Pregnancies Ectopic pregnancies Hx # Pregnancies Multiple births # of living children 0 HPI 35wk ob Details: NICA MANCILLA is a 25 year old who presents for routine OB visit. OB Visit WANG Calculator Estimated Delivery Date Method Current WG Current Estimate 05/16/25 LMP (Certain) 35w 0d Other Estimates 05/19/25 Ultrasound #1 34w 4d Expected Delivery Route/Plan Labor Preferences- CB/BF classes: encouraged labor support person: Chip labor intervention preferences: pain management options preferred: epidural cut cord/dad catch: yes : yes PP control planned: discussed discussed possible routes of delivery and associated risks: [] special requests: [] Specific Issue/Plans Covid status: [] Flu vaccine: done Tdap vaccine: given Rhogam: na LARC form signed: yes movement and labor precautions reviewed. Problem list reviewed and updated with the most current plan of care details and appropriate orders placed. Relevant counseling for the gestational age provided. Continue routine care and follow up unless otherwise noted in visit notes/problem list details Initial Weight: 133 lb Date -???-???-???-???-?? ?-???-???-???-???-? ??-???-???- EGA Weight BP Urine Prot -???-???-???-???-?? ?-???-???-???-???-? ??-???-???- Glucose FHR FuHt Pres Dilation -???-???-???-???-?? ?-???-???-???-???-? ??-???-???- Effaced St Visit Note 10/06/24 -???-???-???-???-?? ?-???-???-???-???-? ??-???-???- 8w 2d 133 lb 4 oz (+4 oz) 127/78 -???-???-???-???-?? ?-???-???-???-???-? ??-???-???- 160 -???-???-???-???-?? ?-???-???-???-???-? ??-???-???- KW- CRL cons with dates. declines NIPT 11/03/24 -???-???-???-???-?? ?-???-???-???-???-? ??-???-???- 12w 2d 135 lb 6 oz (+2 lb 6 oz) 136/80 Negative -???-???-???-???-?? ?-???-???-???-???-? ??-???-???- Negative 157 -???-???-???-???-?? ?-???-???-???-???-? ??-???-???- JV- no cramp ing or spotting. no concerns. declines nipt. 11/29/24 -???-???-???-???-?? ?-???-???-???-???-? ??-???-???- 16w 0d 142 lb 2 oz (+9 lb 2 oz) 120/76 Negative -???-???-???-???-?? ?-???-???-???-???-? ??-???-???- Negative 163 -???-???-???-???-?? ?-???-???-???-???-? ??-???-???- -No VB. Fe els well. Brief US confirm FHT. 12/29/24 -???-???-???-???-?? ?-???-???-???-???-? ??-???-???- 20w 2d 149 lb 8 oz (+16 lb 8 oz) 126/86 Negative -???-???-???-???-?? ?-???-???-???-???-? ??-???-???- Negative 150 -???-???-???-???-?? ?-???-???-???-???-? ??-???-???- SM- no vb lo f good fm no reulga rctx 01/23/25 -???-???-???-???-?? ?-???-?? (more content not included)... Normal [facility] - Chemistry and C hemistry - challengeOrdered By: Maribel Chew on 03-29-2025 Glucose Ql (U) Negative [facility] Laboratory - UrinalysisOrder ed By: Maribel Chew on 03-29-2025 Protein Ql (U) Negative [facility] Senior Materials Planner Office Visit Reporton 03-29-2025 Senior Materials Planner Office Visit Report [facility]'s [address], [address] [place] [address] OFFICE VISIT Date of Service: 03/29/25 MR#: [id number] Acct: [id number] Name: NICA MANCILLA Rep #: [id number] 1 : 2000 Provider: Dr. Maribel Sidhu DO Age/Sex: 25/F Location[place] [facility] [place] Status: Signed Intake Vital Signs 01/23/25 11:21 03/14/25 09:38 03/29/25 10:15 Height 5 ft 6.5 in 5 ft 6.5 in 5 ft 6.5 in Weight: 176 lb 7 oz 177 lb 4 oz BMI 28.0 28.1 BP 129/81 H 132/79 H Intake Visit Reasons: 33wk1d ob Automatic Profile Shaper Operator Required: No Is patient in pain?: No Allergies house dust Allergy (Mild, Verified 03/29/25 10:15) sneezes Medications ???Medication ???Instructions ???Recorded ???Confirmed ???Type [id number] 400 mcg-om3 35 mg-dha 25 tab PO 09/22/24 03/29/25 History mg-epa 5 mg-fish oil chewable tablet magnesium glycinate 100 mg (as 100 mg PO QDAY 09/22/24 03/29/25 H istory glycinate) tablet famotidine 20 mg tablet (Pepcid) 20 mg PO BID #60 tabs 03/01/2507/23 Rx Last Menstrual Period: 08/09/24 Zika: Zika virus screening: Negative : No Have you fallen in the past year?: No PFSH PFSH Medical History Sports physical Social History adopted: No household members: spouse number of children: 0 current occupational status: employed current occupation: [employer] pets and animals: No history of recent travel: No sexually active: Yes Smoking Status: Former smoker Tobacco: How many years used: 4 Smokeless tobacco user: other second hand exposure: No alcohol intake: never substance use type: marijuana and other details: June 2024 well-balanced diet: rarely or never caffeine: No eating out: 1-3 times/week what type of physical activity do you participate in: walking, weight training and other details: 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 frequency: 5-6 times per week duration: > 90 minutes/day carmen/jain: Rastafari seatbelt use: always do you feel safe at home: Yes additional social history: [employer] History 1 Elective abortions Hx Para 0 Spontaneous abortions Hx # Term Pregnancies Ectopic pregnancies Hx # Pregnancies Multiple births # of living children 0 HPI 33wk1d ob Details: NICA MANCILLA is a 25 year old who presents for routine OB visit. OB Visit WANG Calculator Estimated Delivery Date Method Current WG Current Estimate 05/16/25 LMP (Certain) 33w 1d Other Estimates 05/19/25 Ultrasound #1 32w 5d Expected Delivery Route/Plan Labor Preferences- CB/BF classes: encouraged labor support person: Chip labor intervention preferences: pain management options preferred: epidural cut cord/dad catch: yes : yes PP control planned: discussed discussed possible routes of delivery and associated risks: [] special requests: [] Specific Issue/Plans Covid status: [] Flu vaccine: [] Tdap vaccine: [] Rhogam: na LARC form signed: yes Problem list reviewed and updated with the most current plan of care details and appropriate orders placed. Relevant counseling for the gestational age provided. Continue routine care and follow up unless otherwise noted in visit notes/problem list details Initial Weight: 133 lb Date -???-???-???-???-?? ?-???-???-???-???-? ??-???-???- EGA Weight BP Urine Prot -???-???-???-???-?? ?-???-???-???-???-? ??-???-???- Glucose FHR FuHt Pres Dilation -???-???-???-???-?? ?-???-???-???-???-? ??-???-???- Effaced St Visit Note 10/06/24 -???-???-???-???-?? ?-???-???-???-???-? ??-???-???- 8w 2d 133 lb 4 oz (+4 oz) 127/78 -???-???-???-???-?? ?-???-???-???-???-? ??-???-???- 160 -???-???-???-???-?? ?-???-???-???-???-? ??-???-???- KW- CRL cons with dates. declines NIPT 11/03/24 -???-???-???-???-?? ?-???-???-???-???-? ??-???-???- 12w 2d 135 lb 6 oz (+2 lb 6 oz) 136/80 Negative -???-???-???-???-?? ?-???-???-???-???-? ??-???-???- Negative 157 -???-???-???-???-?? ?-???-???-???-???-? ??-???-???- JV- no cramp ing or spotting. no concerns. declines nipt. 11/29/24 -???-???-???-???-?? ?-???-???-???-???-? ??-???-???- 16w 0d 142 lb 2 oz (+9 lb 2 oz) 120/76 Negative -???-???-???-???-?? ?-???-???-???-???-? ??-???-???- Negative 163 -???-???-???-???-?? ?-???-???-???-???-? ??-???-???- -No VB. Fe els well. Brief US confirm FHT. 12/29/24 -???-???-???-???-?? ?-???-???-???-???-? ??-???-???- 20w 2d 149 lb 8 oz (+16 lb 8 oz) 126/86 Negative -???-???-???-???-?? ?-???-???-???-???-? ??-???-???- Negative 150 -???-???-???-???-?? ?-???-???-???-???-? ??-???-???- SM- no vb lo f good fm no reulga rctx 01/23/25 -???-???-???-???- (more content not included)... Normal [facility] - Chemistry and C hemistry - challengeOrdered By: Joceline Grande on 03-14-2025 Glucose Ql (U) Negative [facility] Laboratory - UrinalysisOrder ed By: Joceline Grande on 03-14-2025 Protein Ql (U) Negative [facility] Senior Materials Planner Office Visit Reporton 03-14-2025 Senior Materials Planner Office Visit Report [facility]'s [address], [address] [place] [address] OFFICE VISIT Date of Service: 03/14/25 MR#: [id number] Acct: [id number] Name: NICA MANCILLA Rep #: [id number] 7 : 2000 Provider: ARNIE Felton ams Age/Sex: 25/F Location: [facility] [place], [place] Status: Signed Intake Vital Signs 01/23/25 11:21 03/01/25 14:55 03/14/25 09:38 Height 5 ft 6.5 in 5 ft 6.5 in 5 ft 6.5 in Weight: 176 lb 7 oz BMI 28.0 BP 129/81 H Intake Visit Reasons: 32 wk ob Chief Complaint: 32wk OB Automatic Profile Shaper Operator Required: No Is patient in pain?: No Allergies house dust Allergy (Mild, Verified 03/14/25 09:39) sneezes Medications ???Medication ???Instructions ???Recorded ???Confirmed ???Type [id number] 400 mcg-om3 35 mg-dha 25 tab PO 09/22/24 03/14/25 History mg-epa 5 mg-fish oil chewable tablet magnesium glycinate 100 mg (as 100 mg PO QDAY 09/22/24 03/14/25 H istory glycinate) tablet famotidine 20 mg tablet (Pepcid) 20 mg PO BID #60 tabs 03/01/25 Rx Last Menstrual Period: 08/09/24 : No PFSH PFSH Medical History Sports physical Social History adopted: No household members: spouse number of children: 0 current occupational status: employed current occupation: [employer] pets and animals: No history of recent travel: No sexually active: Yes Smoking Status: Former smoker Tobacco: How many years used: 4 Smokeless tobacco user: other second hand exposure: No alcohol intake: never substance use type: marijuana and other details: June 2024 well-balanced diet: rarely or never caffeine: No eating out: 1-3 times/week what type of physical activity do you participate in: walking, weight training and other 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 OB Visit WANG Calculator Estimated Delivery Date Method Current WG Current Estimate 05/16/25 LMP (Certain) 31w 0d Other Estimates 05/19/25 Ultrasound #1 30w 4d Expected Delivery Route/Plan Labor Preferences- CB/BF classes: encouraged labor support person: Chip labor intervention preferences: pain management options preferred: epidural cut cord/dad catch: yes : yes PP control planned: discussed discussed possible routes of delivery and associated risks: [] special requests: [] Specific Issue/Plans Covid status: [] Flu vaccine: [] Tdap vaccine: [] Rhogam: na LARC form signed: yes Problem list reviewed and updated with the most current plan of care details and appropriate orders placed. Relevant counseling for the gestational age provided. Continue routine care and follow up unless otherwise noted in visit notes/problem list details Initial Weight: 133 lb Date -???-???-???-???-?? ?-???-???-???-???-? ??-???-???- EGA Weight BP Urine Prot -???-???-???-???-?? ?-???-???-???-???-? ??-???-???- Glucose FHR FuHt Pres Dilation -???-???-???-???-?? ?-???-???-???-???-? ??-???-???- Effaced St Visit Note 10/06/24 -???-???-???-???-?? ?-???-???-???-???-? ??-???-???- 8w 2d 133 lb 4 oz (+4 oz) 127/78 -???-???-???-???-?? ?-???-???-???-???-? ??-???-???- 160 -???-???-???-???-?? ?-???-???-???-???-? ??-???-???- KW- CRL cons with dates. declines NIPT 11/03/24 -???-???-???-???-?? ?-???-???-???-???-? ??-???-???- 12w 2d 135 lb 6 oz (+2 lb 6 oz) 136/80 Negative -???-???-???-???-?? ?-???-???-???-???-? ??-???-???- Negative 157 -???-???-???-???-?? ?-???-???-???-???-? ??-???-???- JV- no cramp ing or spotting. no concerns. declines nipt. 11/29/24 -???-???-???-???-?? ?-???-???-???-???-? ??-???-???- 16w 0d 142 lb 2 oz (+9 lb 2 oz) 120/76 Negative -???-???-???-???-?? ?-???-???-???-???-? ??-???-???- Negative 163 -???-???-???-???-?? ?-???-???-???-???-? ??-???-???- MH-No VB. Fe els well. Brief US confirm FHT. 12/29/24 -???-???-???-???-?? ?-???-???-???-???-? ??-???-???- 20w 2d 149 lb 8 oz (+16 lb 8 oz) 126/86 Negative -???-???-???-???-?? ?-???-???-???-???-? ??-???-???- Negative 150 -???-???-???-???-?? ?-???-???-???-???-? ??-???-???- SM- no vb lo f good fm no reulga rctx 01/23/25 -???-???-???-???-?? ?-???-???-???-???-? ??-???-???- 23w 6d 160 lb 4 oz (+27 lb 4 oz) 124/76 Negative -??? (more content not included)... Normal [facility] - Chemistry and C hemistry - challengeOrdered By: Maribel Chew on 03-01-2025 Glucose Ql (U) Negative [facility] - UrinalysisOrder ed By: Maribel Chew on 03-01-2025 Protein Ql (U) Negative [facility] Senior Materials Planner Office Visit Reporton 03-01-2025 Senior Materials Planner Office Visit Report [facility] [address], [address] [place] [address] OFFICE VISIT Date of Service: 03/01/25 MR#: [id number] Acct: [id number] Name: NICA MANCILLA Rep #: [id number] 7 : 2000 Provider: Dr. Maribel Sidhu DO Age/Sex: 24/F Location: [facility] [place], [place] Status: Signed Intake Vital Signs 01/23/25 11:21 02/14/25 13:16 03/01/25 14:55 Height 5 ft 6.5 in 5 ft 6.5 in 5 ft 6.5 in Weight: 172 lb 4 oz BMI 27.3 BP 121/74 H Intake Visit Reasons: 30 wk ob Automatic Profile Shaper Operator Required: No Is patient in pain?: No Allergies house dust Allergy (Mild, Verified 03/01/25 14:58) sneezes Medications ???Medication ???Instructions ???Recorded ???Confirmed ???Type [id number] 400 mcg-om3 35 mg-dha 25 tab PO 09/22/24 03/01/25 History mg-epa 5 mg-fish oil chewable tablet magnesium glycinate 100 mg (as 100 mg PO QDAY 09/22/24 03/01/25 H istory glycinate) tablet famotidine 20 mg tablet (Pepcid) 20 mg PO BID #60 tabs 03/01/2509/20 Rx Last Menstrual Period: 08/09/24 Zika: Zika virus screening: Negative : No PFSH PFSH Medical History Sports physical Social History adopted: No household members: spouse number of children: 0 current occupational status: employed current occupation: [employer] pets and animals: No history of recent travel: No sexually active: Yes Smoking Status: Former smoker Tobacco: How many years used: 4 Smokeless tobacco user: other second hand exposure: No alcohol intake: never substance use type: marijuana and other details: June 2024 well-balanced diet: rarely or never caffeine: No eating out: 1-3 times/week what type of physical activity do you participate in: walking, weight training and other details: 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 OB Visit WANG Calculator Estimated Delivery Date Method Current WG Current Estimate 05/16/25 LMP (Certain) 29w 1d Other Estimates 05/19/25 Ultrasound #1 28w 5d Expected Delivery Route/Plan Labor Preferences- CB/BF classes: encouraged labor support person: Chip labor intervention preferences: pain management options preferred: epidural cut cord/dad catch: yes : yes PP control planned: discussed discussed possible routes of delivery and associated risks: [] special requests: [] Specific Issue/Plans Covid status: [] Flu vaccine: [] Tdap vaccine: [] Rhogam: na LARC form signed: yes Problem list reviewed and updated with the most current plan of care details and appropriate orders placed. Relevant counseling for the gestational age provided. Continue routine care and follow up unless otherwise noted in visit notes/problem list details Initial Weight: 133 lb Date -???-???-???-???-?? ?-???-???-???-???-? ??-???-???- EGA Weight BP Urine Prot -???-???-???-???-?? ?-???-???-???-???-? ??-???-???- Glucose FHR FuHt Pres Dilation -???-???-???-???-?? ?-???-???-???-???-? ??-???-???- Effaced St Visit Note 10/06/24 -???-???-???-???-?? ?-???-???-???-???-? ??-???-???- 8w 2d 133 lb 4 oz (+4 oz) 127/78 -???-???-???-???-?? ?-???-???-???-???-? ??-???-???- 160 -???-???-???-???-?? ?-???-???-???-???-? ??-???-???- KW- CRL cons with dates. declines NIPT 11/03/24 -???-???-???-???-?? ?-???-???-???-???-? ??-???-???- 12w 2d 135 lb 6 oz (+2 lb 6 oz) 136/80 Negative -???-???-???-???-?? ?-???-???-???-???-? ??-???-???- Negative 157 -???-???-???-???-?? ?-???-???-???-???-? ??-???-???- JV- no cramp ing or spotting. no concerns. declines nipt. 11/29/24 -???-???-???-???-?? ?-???-???-???-???-? ??-???-???- 16w 0d 142 lb 2 oz (+9 lb 2 oz) 120/76 Negative -???-???-???-???-?? ?-???-???-???-???-? ??-???-???- Negative 163 -???-???-???-???-?? ?-???-???-???-???-? ??-???-???- MH-No VB. Fe els well. Brief US confirm FHT. 12/29/24 -???-???-???-???-?? ?-???-???-???-???-? ??-???-???- 20w 2d 149 lb 8 oz (+16 lb 8 oz) 126/86 Negative -???-???-???-???-?? ?-???-???-???-???-? ??-???-???- Negative 150 -???-???-???-???-?? ?-???-???-???-???-? ??-???-???- SM- no vb lo f good fm no reulga rctx 01/23/25 -???-???-???-???-?? ?-???-???-???-???-? ??-???-???- 23w 6d 160 lb 4 oz (+27 (more content not included)... Normal [facility] Absolute lymphocyte countOrd ered By: Joceline Grande on 02-14-2025 Lymphocytes Auto (Unsp spec) [#/Vol] 1.83 10*3/uL 0.83-4.51 [facility] Absolute neutrophil countOrd ered By: Joceline Grande on 02-14-2025 Neutrophils (Bld) [#/Vol] 6.8 10*3/uL 2.0-7.7 [facility] Automated lymphocyte count a s percentage of total leukocytesOrdered By: Joceline Grande on 02-14-2025 Lymphocytes/100 WBC Auto (Unsp spec) 19.0 % 19-41 [facility] Basophil percentageOrdered B y: Joceline Grande on 02-14-2025 Basophils/100 WBC (Bld) 0.2 % 0-1 [facility] CBC W/Diff, Automatedon 08- Absolute Lymph 1.83 X10 3/uL Normal 0.83-4.51 [facility] Comment on above: Performed By: #### L 100.0100, L3890.6006, L509.8002, L501.0250 ####[facility] [address] [place], [address] Absolute Neut 6.8 X10 3/uL Normal 2.0-7.7 [facility] Comment on above: Performed By: #### L 100.0100, L3890.6006, L509.8002, L501.0250 ####[facility] [address] [place], [address] Basophils/100 WBC (Bld) 0.2 % Normal 0-1 [facility] Comment on above: Performed By: #### L 100.0100, L3890.6006, L509.8002, L501.0250 ####[facility] [address] [place], [address] Eosinophils/100 WBC (Bld) 1.0 % Normal 0-5 [facility] Comment on above: Performed By: #### L 100.0100, L3890.6006, L509.8002, L501.0250 ####[facility] [address] [place], [address] Erythrocyte distribution width (RBC) [Ratio] 12.3 % Normal 11.6-14.6 [facility] Comment on above: Performed By: #### L 100.0100, L3890.6006, L509.8002, L501.0250 ####[facility] [address] [place], [address] Hematocrit (Bld) [Volume fraction] 31.6 % Low 37-47 [facility] Comment on above: Performed By: #### L 100.0100, L3890.6006, L509.8002, L501.0250 ####[facility] [address] [place], [address] Hemoglobin (Bld) [Mass/Vol] 10.7 g/dL Low 12.0-15.0 [facility] Comment on above: Performed By: #### L 100.0100, L3890.6006, L509.8002, L501.0250 ####[facility] [address] [place], [address] IG% 0.900 Normal 0.0-0.9 [facility] Comment on above: Result Comment: IG% - Immature Granulocytes (promyelocytes, myelocytes and metamyelocytes) > 1% indicates that a LEFT SHIFT is Present. Performed By: #### L 100.0100, L3890.6006, L509.8002, L501.0250 ####[facility] [address] [place], [address] Lymphocytes/100 WBC (Bld) 19.0 % Normal 19-41 [facility] Comment on above: Performed By: #### L 100.0100, L3890.6006, L509.8002, L501.0250 ####[facility] [address] [place], [address] MCH (RBC) [Entitic mass] 30.5 pg Normal 27.0-32.0 [facility] Comment on above: Performed By: #### L 100.0100, L3890.6006, L509.8002, L501.0250 ####[facility] [address] [place], [address] MCHC (RBC) [Mass/Vol] 33.9 g/dL Normal 32-36 [facility] Comment on above: Performed By: #### L 100.0100, L3890.6006, L509.8002, L501.0250 ####[facility] [address] [place], [address] MCV (RBC) [Entitic vol] 90.0 fL Normal 81-99 [facility] Comment on above: Performed By: #### L 100.0100, L3890.6006, L509.8002, L501.0250 ####[facility] [address] [place], [address] Monocytes/100 WBC (Bld) 7.7 % Normal 0-10 [facility] Comment on above: Performed By: #### L 100.0100, L3890.6006, L509.8002, L501.0250 ####[facility] [address] [place], [address] Neutrophils/100 WBC (Bld) 71.2 % High 47-70 [facility] Comment on above: Performed By: #### L 100.0100, L3890.6006, L509.8002, L501.0250 ####[facility] [address] [place], [address] Nucleated RBC (Bld) [#/Vol] 0 10*3/uL Normal 0-5 [facility] Comment on above: Performed By: #### L 100.0100, L3890.6006, L509.8002, L501.0250 ####[facility] [address] [place], [address] Platelet mean volume (Bld) [Entitic vol] 8.9 fL Normal 6.2-12.0 [facility] Comment on above: Performed By: #### L 100.0100, L3890.6006, L509.8002, L501.0250 ####[facility] [address] [place], [address] Platelets (Bld) [#/Vol] 271 10*3/uL Normal 150-450 [facility] Comment on above: Performed By: #### L 100.0100, L3890.6006, L509.8002, L501.0250 ####[facility] [address] [place], [address] RBC (Bld) [#/Vol] 3.51 10*6/uL Low 4.2-5.4 [facility] Comment on above: Performed By: #### L 100.0100, L3890.6006, L509.8002, L501.0250 ####[facility] [address] [place], [address] RDW SD 39.9 fl Normal 35.1-43.9 [facility] Comment on above: Performed By: #### L 100.0100, L3890.6006, L509.8002, L501.0250 ####[facility] [address] [place], [address] WBC (Bld) [#/Vol] 9.6 10*3/uL Normal 4.4-11.0 [facility] Comment on above: Performed By: #### L 100.0100, L3890.6006, L509.8002, L501.0250 ####[facility] [address] [place], [address] Eosinophil percentageOrdered By: Joceline Grande on 02-14-2025 Eosinophils/100 WBC (Bld) 1.0 % 0-5 [facility] Erythrocyte distribution wid th ratioOrdered By: Joceline Grande on 02-14-2025 Erythrocyte distribution width (RBC) [Ratio] 12.3 % 11.6-14.6 [facility] Erythrocyte distribution wid th standard deviationOrdered By: Joceline Grande on 02-14-2025 Erythrocyte distribution width (RBC) [Ratio] 39.9 fl 35.1-43.9 [facility] Glucose Challenge Gest 1H 50 mihaela 02-14-2025 GLU GEST 50g 1H 101 mg/dL Normal 70-140 [facility] Comment on above: Result Comment: AMENDED REPORT 02/14/25 1646 GLU GEST 50g 1H previously reported as: 101 mg/dL Performed By: #### L 100.0100, L3890.6006, L509.8002, L501.0250 ####[facility] [address] [facility] [place], [address] Glucose measurement at 2 marivel rs post-dose gestational glucose tolerance testOrdered By: Joceline Grande on 02-14-2025 Glucose [Mass/Vol] 99 mg/dL 70-140 [facility] Comment on above: Previous reported re sult: 101 mg/dLEdited by: ASHU on 02/14/25:1646 AMENDED REPORT 02/14/25 1646 GLU GEST 50g 1H previously reported as: 101 mg/dL HIVon 02-14-2025 HIV Non-Reactive Normal Nonreactive [facility] Comment on above: Result Comment: Non- Reactive Reactive Repeatedly reactive samples must be confirmed according to CDC recommended confirmatory algorithms. The subresults for either HIVAG or AHIV can be used as an aid in the selection of the confirmation algorithm for reactive samples. Send out specimens with Reactive results to [facility] for confirmation. Order the HIV antibody detection and differentiation: #[id number] Performed By: #### L 100.0100, L3890.6006, L509.8002, L501.0250 ####[facility] [address] [place], [place], [id number] Hematocrit Auto (Bld) [Volum e fraction]Ordered By: Joceline Grande on 02-14-2025 Hematocrit (Bld) [Volume fraction] 31.6 % Low 37-47 [facility] Hemoglobin measurementOrdere d By: Joceline Grande on 02-14-2025 Hemoglobin (Bld) [Mass/Vol] 10.7 g/dL Low 12.0-15.0 [facility] Immature granulocytes/100 WB C Auto (Bld)Ordered By: Joceline Grande on 02-14-2025 Immature granulocytes/100 WBC (Bld) 0.900 % 0.0-0.9 [facility] Comment on above: IG% - Immature Granu locytes (promyelocytes, myelocytes and metamyelocytes) > 1% indicates that a LEFT SHIFT is Present. Laboratory - Chemistry and C hemistry - challengeOrdered By: Garima Christensen on 02-14-2025 Glucose Ql (U) Negative [facility] Laboratory - UrinalysisOrder ed By: Garima Christensen on 02-14-2025 Protein Ql (U) Negative [facility] MCV (mean corpuscular volume ) determinationOrdered By: Joceline Grande on 02-14-2025 MCV (RBC) [Entitic vol] 90.0 fL 81-99 [facility] Mean corpuscular hemoglobin (MCH) determinationOrdered By: Joceline Grande on 02-14-2025 MCH (RBC) [Entitic mass] 30.5 pg 27.0-32.0 [facility] Mean corpuscular hemoglobin concentration (MCHC) determinationOrdered By: Joceline Grande on 02-14-2025 MCHC (RBC) [Mass/Vol] 33.9 g/dL 32-36 [facility] Mean platelet volume determi nationOrdered By: Joceline Grande on 02-14-2025 Platelet mean volume (Bld) [Entitic vol] 8.9 fL 6.2-12.0 [facility] Monocyte percentageOrdered B y: Joceline Grande on 02-14-2025 Monocytes/100 WBC (Bld) 7.7 % 0-10 [facility] Neutrophil percentageOrdered By: Joceline Grande on 02-14-2025 Neutrophils/100 WBC (Bld) 71.2 % High 47-70 [facility] No Panel InformationOrdered By: Joceline Grande on 02-14-2025 HIV (1&2) Antibody Non-Reactive Nonreactive [facility] Comment on above: Non-ReactiveReactive Repeatedly reactive samples must be confirmed according to CDC recommended confirmatory algorithms. The subresults for either HIVAG or AHIV can be used as an aid in the selection of the confirmation algorithm for reactive samples.Send out specimens with Reactive results to [facility] for confirmation.Order the HIV antibody detection and differentiation: #[id number] Nucleated red blood cell per centageOrdered By: Joceline Grande on 02-14-2025 Nucleated RBC/100 WBC (Bld) [Ratio] 0 % 0-5 [facility] [employer] Office Visit Reporton 02-14-2025 Senior Materials [employer]anner Office Visit Report [facility] [address], [address] [place] [address] OFFICE VISIT Date of Service: 02/14/25 MR#: [id number] Acct: [id number] Name: NICA MANCILLA Rep #: [id number] 7 : 2000 Provider: LACIE mars Age/Sex: 24/F Location: [facility] [place], [place] Status: Signed Intake Vital Signs 12/29/24 16:01 01/23/25 11:21 02/14/25 13:00 02/14/25 13:16 Height 5 ft 6.5 in 5 ft 6.5 in 5 ft 6.5 in 5 ft 6.5 in Weight: 169 lb 3 oz BMI 26.9 BP 116/72 Intake Visit Reasons: 28 WK OB/GLUCOSE Chief Complaint: 28 Week OB/Glucose Automatic Profile Shaper Operator Required: No Is patient in pain?: No Allergies house dust Allergy (Mild, Verified 02/14/25 12:59) sneezes Medications ???Medication ???Instructions ???Recorded ???Confirmed ???Type [id number] 400 mcg-om3 35 mg-dha 25 tab PO 09/22/24 02/14/25 History mg-epa 5 mg-fish oil chewable tablet magnesium glycinate 100 mg (as 100 mg PO QDAY 09/22/24 02/14/25 H istory glycinate) tablet Last Menstrual Period: 08/09/24 Zika: Zika virus screening: Negative : Yes PFSH PFSH Medical History Sports physical Social History adopted: No household members: spouse number of children: 0 current occupational status: employed current occupation: [employer] pets and animals: No history of recent travel: No sexually active: Yes Smoking Status: Former smoker Tobacco: How many years used: 4 Smokeless tobacco user: other second hand exposure: No alcohol intake: never substance use type: marijuana and other details: June 2024 well-balanced diet: rarely or never caffeine: No eating out: 1-3 times/week what type of physical activity do you participate in: walking, weight training and other details: 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 OB Visit WANG Calculator Estimated Delivery Date Method Current WG Current Estimate 05/16/25 LMP (Certain) 27w 0d Other Estimates 05/19/25 Ultrasound #1 26w 4d Expected Delivery Route/Plan Labor Preferences- CB/BF classes: encouraged labor support person: Chip labor intervention preferences: pain management options preferred: epidural cut cord/dad catch: yes : yes PP control planned: discussed discussed possible routes of delivery and associated risks: [] special requests: [] Specific Issue/Plans Covid status: [] Flu vaccine: [] Tdap vaccine: [] Rhogam: na LARC form signed: yes Problem list reviewed and updated with the most current plan of care details and appropriate orders placed. Relevant counseling for the gestational age provided. Continue routine care and follow up unless otherwise noted in visit notes/problem list details Initial Weight: 133 lb Date -???-???-???-???-?? ?-???-???-???-???-? ??-???-???- EGA Weight BP Urine Prot -???-???-???-???-?? ?-???-???-???-???-? ??-???-???- Glucose FHR FuHt Pres Dilation -???-???-???-???-?? ?-???-???-???-???-? ??-???-???- Effaced St Visit Note 10/06/24 -???-???-???-???-?? ?-???-???-???-???-? ??-???-???- 8w 2d 133 lb 4 oz (+4 oz) 127/78 -???-???-???-???-?? ?-???-???-???-???-? ??-???-???- 160 -???-???-???-???-?? ?-???-???-???-???-? ??-???-???- KW- CRL cons with dates. declines NIPT 11/03/24 -???-???-???-???-?? ?-???-???-???-???-? ??-???-???- 12w 2d 135 lb 6 oz (+2 lb 6 oz) 136/80 Negative -???-???-???-???-?? ?-???-???-???-???-? ??-???-???- Negative 157 -???-???-???-???-?? ?-???-???-???-???-? ??-???-???- JV- no cramp ing or spotting. no concerns. declines nipt. 11/29/24 -???-???-???-???-?? ?-???-???-???-???-? ??-???-???- 16w 0d 142 lb 2 oz (+9 lb 2 oz) 120/76 Negative -???-???-???-???-?? ?-???-???-???-???-? ??-???-???- Negative 163 -???-???-???-???-?? ?-???-???-???-???-? ??-???-???- -No VB. Fe els well. Brief US confirm FHT. 12/29/24 -???-???-???-???-?? ?-???-???-???-???-? ??-???-???- 20w 2d 149 lb 8 oz (+16 lb 8 oz) 126/86 Negative -???-???-???-???-?? ?-???-???-???-???-? ??-???-???- Negative 150 -???-???-???-???-?? ?-???-???-???-???-? ??-???-???- SM- no vb lo f good fm no reulga rctx 01/23/25 -???-???-???-???-?? ?-???-???-???-???-? ??-???-???- 23w 6d 160 lb 4 oz (+27 lb 4 oz (more content not included)... Normal [facility] Platelet countOrdered By: Scott Grande on 02-14-2025 Platelets (Bld) [#/Vol] 271 10*3/uL 150-450 [facility] RBC Auto (Bld) [#/Vol]Ordere d By: Joceline Grande on 02-14-2025 RBC (Bld) [#/Vol] 3.51 10*6/uL Low 4.2-5.4 [facility] Syphilis Antibodieson 2024 Syphilis Abs Non-Reactive Normal Nonreactive [facility] Comment on above: Performed By: #### L 100.0100, L3890.6006, L509.8002, L501.0250 ####[facility] [address] [place], [address] White blood cell (WBC) count Ordered By: Joceline Grande on 02-14-2025 WBC (Bld) [#/Vol] 9.6 10*3/uL 4.4-11.0 [facility] Laboratory - Chemistry and C hemistry - challengeOrdered By: Joceline Grande on 01-23-2025 Glucose Ql (U) Negative [facility] Laboratory - UrinalysisOrder ed By: Joceline Grande on 01-23-2025 Protein Ql (U) Negative [facility] Senior Materials Planner Office Visit Reporton 01-23-2025 Senior Materials Planner Office Visit Report [facility] [address], [address] [place] [address] OFFICE VISIT Date of Service: 01/23/25 MR#: [id number] Acct: [id number] Name: NICA MANCILLA Rep #: [id number] 5 : 2000 Provider: ARNIE Felton ams Age/Sex: 24/F Location: [facility] [place], [place] Status: Signed Intake Vital Signs 11/29/24 08:28 12/29/24 16:01 01/23/25 11:21 Height 5 ft 6.5 in 5 ft 6.5 in 5 ft 6.5 in Weight: 160 lb 4 oz BMI 25.4 BP 124/76 H Intake Visit Reasons: 24 wk ob Chief Complaint: 24wk OB Automatic Profile Shaper Operator Required: No Is patient in pain?: No Allergies house dust Allergy (Mild, Verified 01/23/25 11:19) sneezes Medications ???Medication ???Instructions ???Recorded ???Confirmed ???Type [id number] 400 mcg-om3 35 mg-dha 25 tab PO 09/22/24 01/23/25 History mg-epa 5 mg-fish oil chewable tablet magnesium glycinate 100 mg (as 100 mg PO QDAY 09/22/24 01/23/25 H istory glycinate) tablet Last Menstrual Period: 08/09/24 : No PFSH PFSH Medical History Sports physical Social History adopted: No household members: spouse number of children: 0 current occupational status: employed current occupation: [employer] pets and animals: No history of recent travel: No sexually active: Yes Smoking Status: Former smoker Tobacco: How many years used: 4 Smokeless tobacco user: other second hand exposure: No alcohol intake: never substance use type: marijuana and other details: June 2024 well-balanced diet: rarely or never caffeine: No eating out: 1-3 times/week what type of physical activity do you participate in: walking, weight training and other details: 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 OB Visit WANG Calculator Estimated Delivery Date Method Current WG Current Estimate 05/16/25 LMP (Certain) 23w 6d Other Estimates 05/19/25 Ultrasound #1 23w 3d Expected Delivery Route/Plan Labor Preferences- CB/BF classes: [] labor support person: [] labor intervention preferences: [] pain management options preferred: [] cut cord/dad catch: [] : [] PP control planned: [] discussed possible routes of delivery and associated risks: [] special requests: [] Specific Issue/Plans Covid status: [] Flu vaccine: [] Tdap vaccine: [] Rhogam: [] LARC form signed: [] Problem list reviewed and updated with the most current plan of care details and appropriate orders placed. Relevant counseling for the gestational age provided. Continue routine care and follow up unless otherwise noted in visit notes/problem list details Initial Weight: 133 lb Date -???-???-???-???-?? ?-???-???-???-???-? ??-???-???- EGA Weight BP Urine Prot -???-???-???-???-?? ?-???-???-???-???-? ??-???-???- Glucose FHR FuHt Pres Dilation -???-???-???-???-?? ?-???-???-???-???-? ??-???-???- Effaced St Visit Note 10/06/24 -???-???-???-???-?? ?-???-???-???-???-? ??-???-???- 8w 2d 133 lb 4 oz (+4 oz) 127/78 -???-???-???-???-?? ?-???-???-???-???-? ??-???-???- 160 -???-???-???-???-?? ?-???-???-???-???-? ??-???-???- KW- CRL cons with dates. declines NIPT 11/03/24 -???-???-???-???-?? ?-???-???-???-???-? ??-???-???- 12w 2d 135 lb 6 oz (+2 lb 6 oz) 136/80 Negative -???-???-???-???-?? ?-???-???-???-???-? ??-???-???- Negative 157 -???-???-???-???-?? ?-???-???-???-???-? ??-???-???- JV- no cramp ing or spotting. no concerns. declines nipt. 11/29/24 -???-???-???-???-?? ?-???-???-???-???-? ??-???-???- 16w 0d 142 lb 2 oz (+9 lb 2 oz) 120/76 Negative -???-???-???-???-?? ?-???-???-???-???-? ??-???-???- Negative 163 -???-???-???-???-?? ?-???-???-???-???-? ??-???-???- MH-No VB. Fe els well. Brief US confirm FHT. 12/29/24 -???-???-???-???-?? ?-???-???-???-???-? ??-???-???- 20w 2d 149 lb 8 oz (+16 lb 8 oz) 126/86 Negative -???-???-???-???-?? ?-???-???-???-???-? ??-???-???- Negative 150 -???-???-???-???-?? ?-???-???-???-???-? ??-???-???- SM- no vb lo f good fm no reulga rctx 01/23/25 -???-???-???-???-?? ?-???-???-???-???-? ??-???-???- 23w 6d 160 lb 4 oz (+27 lb 4 oz) 124/76 Negative -???-???-???-???-?? ?-???-???-???-???-? ??-???-???- Negative 140 24 -???-???-???-???-?? ?-???-???-???-???-? ??-?? (more content not included)... Normal [facility] Laboratory - Chemistry and C hemistry - challengeOrdered By: Lovely Arguello on 12-29-2024 Glucose Ql (U) Negative [facility] Laboratory - UrinalysisOrder ed By: Lovely Arguello on 12-29-2024 Protein Ql (U) Negative [facility] Senior Materials Planner Office Visit Reporton 12-29-2024 Senior Materials Planner Office Visit Report [facility], [address] [place] [address] OFFICE VISIT Date of Service: 12/29/24 MR#: [id number] Acct: [id number] Name: NICA MANCILLA Rep #: [id number] 1 : 2000 Provider: Dr. Lovely meeks MD Age/Sex: 24/F Location: [facility] – [place], [place] Status: Signed Intake Vital Signs 10/06/24 14:35 11/29/24 08:28 12/29/24 15:59 12/29/24 16:01 Height 5 ft 6.5 in 5 ft 6.5 in 5 ft 6.5 in 5 ft 6.5 in Weight: 142 lb 2 oz 149 lb 8 oz BMI 22.6 23.8 BP 120/76 126/86 H Intake Visit Reasons: 20 wk ob Automatic Profile Shaper Operator Required: No Is patient in pain?: No Allergies house dust Allergy (Mild, Verified 12/29/24 15:58) sneezes Medications ???Medication ???Instructions ???Recorded ???Confirmed ???Type [id number] 400 mcg-om3 35 mg-dha 25 tab PO 09/22/24 12/29/24 History mg-epa 5 mg-fish oil chewable tablet magnesium glycinate 100 mg (as 100 mg PO QDAY 09/22/24 12/29/24 H istory glycinate) tablet Last Menstrual Period: 08/09/24 Zika: Zika virus screening: Negative : No PFSH PFSH Medical History Sports physical Social History adopted: No household members: spouse number of children: 0 current occupational status: employed current occupation: [employer] pets and animals: No history of recent travel: No sexually active: Yes Smoking Status: Former smoker Tobacco: How many years used: 4 Smokeless tobacco user: other second hand exposure: No alcohol intake: never substance use type: marijuana and other details: June 2024 well-balanced diet: rarely or never caffeine: No eating out: 1-3 times/week what type of physical activity do you participate in: walking, weight training and other details: 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 OB Visit WANG Calculator Estimated Delivery Date Method Current WG Current Estimate 05/16/25 LMP (Certain) 20w 2d Other Estimates 05/19/25 Ultrasound #1 19w 6d Expected Delivery Route/Plan Labor Preferences- CB/BF classes: [] labor support person: [] labor intervention preferences: [] pain management options preferred: [] cut cord/dad catch: [] : [] PP control planned: [] discussed possible routes of delivery and associated risks: [] special requests: [] Specific Issue/Plans Covid status: [] Flu vaccine: [] Tdap vaccine: [] Rhogam: [] LARC form signed: [] Problem list reviewed and updated with the most current plan of care details and appropriate orders placed. Relevant counseling for the gestational age provided. Continue routine care and follow up unless otherwise noted in visit notes/problem list details Initial Weight: 133 lb Date -???-???-???-???-?? ?-???-???-???-???-? ??-???-???- EGA Weight BP Urine Prot -???-???-???-???-?? ?-???-???-???-???-? ??-???-???- Glucose FHR FuHt Pres Dilation -???-???-???-???-?? ?-???-???-???-???-? ??-???-???- Effaced St Visit Note 10/06/24 -???-???-???-???-?? ?-???-???-???-???-? ??-???-???- 8w 2d 133 lb 4 oz (+4 oz) 127/78 -???-???-???-???-?? ?-???-???-???-???-? ??-???-???- 160 -???-???-???-???-?? ?-???-???-???-???-? ??-???-???- KW- CRL cons with dates. declines NIPT 11/03/24 -???-???-???-???-?? ?-???-???-???-???-? ??-???-???- 12w 2d 135 lb 6 oz (+2 lb 6 oz) 136/80 Negative -???-???-???-???-?? ?-???-???-???-???-? ??-???-???- Negative 157 -???-???-???-???-?? ?-???-???-???-???-? ??-???-???- JV- no cramp ing or spotting. no concerns. declines nipt. 11/29/24 -???-???-???-???-?? ?-???-???-???-???-? ??-???-???- 16w 0d 142 lb 2 oz (+9 lb 2 oz) 120/76 Negative -???-???-???-???-?? ?-???-???-???-???-? ??-???-???- Negative 163 -???-???-???-???-?? ?-???-???-???-???-? ??-???-???- MH-No VB. Fe els well. Brief US confirm FHT. 12/29/24 -???-???-???-???-?? ?-???-???-???-???-? ??-???-???- 20w 2d 149 lb 8 oz (+16 lb 8 oz) 126/86 Negative -???-???-???-???-?? ?-???-???-???-???-? ??-???-???- Negative 150 -???-???-???-???-?? ?-???-???-???-???-? ??-???-???- SM- no vb lo f good fm no reulga rctx ACOG First Trimester First Trimester: Discussed Second Trimester Second Trimester: Signs and Symptoms of Labor, Blanca (more content not included)... Normal [facility] - Chemistry and C hemistry - challengeOrdered By: Garima Christensen on 11-29-2024 Glucose Ql (U) Negative [facility] - UrinalysisOrder ed By: Garima Christensen on 11-29-2024 Protein Ql (U) Negative [facility] Senior Materials Planner Office Visit Reporton 11-29-2024 Senior Materials Planner Office Visit Report [facility] [address], [address] [place] [address] OFFICE VISIT Date of Service: 11/29/24 MR#: [id number] Acct: [id number] Name: NICA MANCILLA Rep #: [id number] : 2000 Provider: LACIE mars Age/Sex: 24/F [place] [facility] [place] Status: Signed Intake Vital Signs 10/06/24 14:35 11/03/24 15:06 11/29/24 08:28 Height 5 ft 6.5 in 5 ft 6.5 in 5 ft 6.5 in Weight: 142 lb 2 oz BMI 22.6 BP 120/76 Intake Visit Reasons: 16 wk ob Chief Complaint: 16 Week OB Automatic Profile Shaper Operator Required: No Is patient in pain?: No Allergies house dust Allergy (Mild, Verified 11/29/24 08:28) sneezes Medications ???Medication ???Instructions ???Recorded ???Confirmed ???Type [id number] 400 mcg-om3 35 mg-dha 25 tab PO 09/22/24 11/29/24 History mg-epa 5 mg-fish oil chewable tablet magnesium glycinate 100 mg (as 100 mg PO QDAY 09/22/24 11/29/24 H istory glycinate) tablet Last Menstrual Period: 08/09/24 Zika: Zika virus screening: Negative : No PFSH PFSH Medical History Sports physical Social History adopted: No household members: spouse number of children: 0 current occupational status: employed current occupation: [employer] pets and animals: No history of recent travel: No sexually active: Yes Smoking Status: Former smoker Tobacco: How many years used: 4 Smokeless tobacco user: other second hand exposure: No alcohol intake: never substance use type: marijuana and other details: June 2024 well-balanced diet: rarely or never caffeine: No eating out: 1-3 times/week what type of physical activity do you participate in: walking, weight training and other details: 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 OB Visit WANG Calculator Estimated Delivery Date Method Current WG Current Estimate 05/16/25 LMP (Certain) 16w 0d Other Estimates 05/19/25 Ultrasound #1 15w 4d Expected Delivery Route/Plan Labor Preferences- CB/BF classes: [] labor support person: [] labor intervention preferences: [] pain management options preferred: [] cut cord/dad catch: [] : [] PP control planned: [] discussed possible routes of delivery and associated risks: [] special requests: [] Specific Issue/Plans Covid status: [] Flu vaccine: [] Tdap vaccine: [] Rhogam: [] LARC form signed: [] Problem list reviewed and updated with the most current plan of care details and appropriate orders placed. Relevant counseling for the gestational age provided. Continue routine care and follow up unless otherwise noted in visit notes/problem list details Initial Weight: 133 lb Date -???-???-???-???-?? ?-???-???-???-???-? ??-???-???- EGA Weight BP Urine Prot -???-???-???-???-?? ?-???-???-???-???-? ??-???-???- Glucose FHR FuHt Pres Dilation -???-???-???-???-?? ?-???-???-???-???-? ??-???-???- Effaced St Visit Note 10/06/24 -???-???-???-???-?? ?-???-???-???-???-? ??-???-???- 8w 2d 133 lb 4 oz (+4 oz) 127/78 -???-???-???-???-?? ?-???-???-???-???-? ??-???-???- 160 -???-???-???-???-?? ?-???-???-???-???-? ??-???-???- KW- CRL cons with dates. declines NIPT 11/03/24 -???-???-???-???-?? ?-???-???-???-???-? ??-???-???- 12w 2d 135 lb 6 oz (+2 lb 6 oz) 136/80 Negative -???-???-???-???-?? ?-???-???-???-???-? ??-???-???- Negative 157 -???-???-???-???-?? ?-???-???-???-???-? ??-???-???- JV- no cramp ing or spotting. no concerns. declines nipt. 11/29/24 -???-???-???-???-?? ?-???-???-???-???-? ??-???-???- 16w 0d 142 lb 2 oz (+9 lb 2 oz) 120/76 Negative -???-???-???-???-?? ?-???-???-???-???-? ??-???-???- Negative 163 -???-???-???-???-?? ?-???-???-???-???-? ??-???-???- MH-No VB. Fe els well. Brief US confirm FHT. ACOG First Trimester First Trimester: Discussed Second Trimester Second Trimester: Signs and Symptoms of Labor, Selecting a care provider, Reproductive Life Planning Contreception, Care Planning, Depression/Anxiety and Intim ate Partner Violence; Discussed Tobacco Cessation Third Trimester Third Trimester: Pain Management Plans, Labor support person(s), Immediate Larc, Signs a (more content not included)... Normal [facility] - Chemistry and C hemistry - challengeOrdered By: Maribel Chew on 11-03-2024 Glucose Ql (U) Negative [facility] - UrinalysisOrder ed By: Maribel Chew on 11-03-2024 Protein Ql (U) Negative [facility] Senior Materials Planner Office Visit Reporton 11-03-2024 Senior Materials Planner Office Visit Report [facility] [address], [address] [place] [address] OFFICE VISIT Date of Service: 11/03/24 MR#: [id number] Acct: [id number] Name: NICA MANCILLA Rep #: [id number] : 2000 Provider: Dr. Maribel Sidhu DO Age/Sex: 24/F Location: [facility] [place] [place] Status: Signed Intake Vital Signs 01/27/18 15:40 10/06/24 14:35 11/03/24 15:06 Height 5 ft 6.5 in 5 ft 6.5 in 5 ft 6.5 in Weight: 135 lb 6 oz BMI 21.5 BP 136/80 H Intake Visit Reasons: 12WK OB Automatic Profile Shaper Operator Required: No Is patient in pain?: No Allergies house dust Allergy (Mild, Verified 11/03/24 15:06) sneezes Medications ???Medication ???Instructions ???Recorded ???Confirmed ???Type [id number] 400 mcg-om3 35 mg-dha 25 tab PO 09/22/24 11/03/24 History mg-epa 5 mg-fish oil chewable tablet magnesium glycinate 100 mg (as 100 mg PO QDAY 09/22/24 11/03/24 H istory glycinate) tablet Last Menstrual Period: 08/09/24 Zika: Zika virus screening: Negative : No PFSH PFSH Medical History Sports physical Social History adopted: No household members: spouse number of children: 0 current occupational status: employed current occupation: [employer] pets and animals: No history of recent travel: No sexually active: Yes Smoking Status: Former smoker Tobacco: How many years used: 4 Smokeless tobacco user: other second hand exposure: No alcohol intake: never substance use type: marijuana and other details: June 2024 well-balanced diet: rarely or never caffeine: No eating out: 1-3 times/week what type of physical activity do you participate in: walking, weight training and other details: 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 OB Visit WANG Calculator Estimated Delivery Date Method Current WG Current Estimate 05/16/25 LMP (Certain) 12w 2d Other Estimates 05/19/25 Ultrasound #1 11w 6d Expected Delivery Route/Plan Labor Preferences- CB/BF classes: [] labor support person: [] labor intervention preferences: [] pain management options preferred: [] cut cord/dad catch: [] : [] PP control planned: [] discussed possible routes of delivery and associated risks: [] special requests: [] Specific Issue/Plans Covid status: [] Flu vaccine: [] Tdap vaccine: [] Rhogam: [] LARC form signed: [] Problem list reviewed and updated with the most current plan of care details and appropriate orders placed. Relevant counseling for the gestational age provided. Continue routine care and follow up unless otherwise noted in visit notes/problem list details Initial Weight: 133 lb Date -???-???-???-???-?? ?-???-???-???-???-? ??-???-???- EGA Weight BP Urine Prot -???-???-???-???-?? ?-???-???-???-???-? ??-???-???- Glucose FHR FuHt Pres Dilation -???-???-???-???-?? ?-???-???-???-???-? ??-???-???- Effaced St Visit Note 10/06/24 -???-???-???-???-?? ?-???-???-???-???-? ??-???-???- 8w 2d 133 lb 4 oz (+4 oz) 127/78 -???-???-???-???-?? ?-???-???-???-???-? ??-???-???- 160 -???-???-???-???-?? ?-???-???-???-???-? ??-???-???- KW- CRL cons with dates. declines NIPT 11/03/24 -???-???-???-???-?? ?-???-???-???-???-? ??-???-???- 12w 2d 135 lb 6 oz (+2 lb 6 oz) 136/80 Negative -???-???-???-???-?? ?-???-???-???-???-? ??-???-???- Negative 157 -???-???-???-???-?? ?-???-???-???-???-? ??-???-???- JV- no cramp ing or spotting. no concerns. declines nipt. ACOG First Trimester First Trimester: Discussed Second Trimester Second Trimester: Signs and Symptoms of Labor, Selecting a care provider, Reproductive Life Planning Contreception, Care Planning, Depression/Anxiety and Intimate Partner Violence; Discussed Tobacco Cessation Third Trimester Third Trimester: Pain Management Plans, Labor support person(s), Immediate Larc, Signs and Symptoms of Preeclampsia, Infant Feeding No , Education and Family Medical Leave or Disability Forms Results POC Urinalysis 2 Dip (Clinic) Office Urine Glucose Negative Last Edit by Carine Sullivan on 11/03/24 15:24 Office Urine Protein Negative Last Edit by Elissa (more content not included)... Normal [facility] PAP I-G w/rfx hrHPV-Aptimaon 10-13-2024 ADEQ Comment Normal . [facility] Comment on above: Order Comment: Speci men Comment: [id number] Comment: Source.............Cervix;EndocervixSpecimen Comment: LMP / Prev Treat...[id number] Comment: Other..............Specimen Comment: No. of containers..01 ThinPrep Vial Result Comment: Sati sfactory for evaluation. No endocervical component is identified. Performed By: #### L 505.5000, M100.2200, L7400.0353, L7000.1800 ####[facility] [address] [place], [place], [phone] COMM . Normal . [facility] Comment on above: Order Comment: Speci men Comment: [id number] Comment: Source.............Cervix;EndocervixSpecimen Comment: LMP / Prev Treat...[id number] Comment: Other..............Specimen Comment: No. of containers..01 ThinPrep Vial Performed By: #### L 505.5000, M100.2200, L7400.0353, L7000.1800 ####[facility] [address] [place], [place], [phone] COMMENT Comment Normal . [facility] Comment on above: Order Comment: Speci men Comment: [id number] Comment: Source.............Cervix;EndocervixSpecimen Comment: LMP / Prev Treat...[id number] Comment: Other..............Specimen Comment: No. of containers..01 ThinPrep Vial Result Comment: This liquid based ThinPrep(R) pap test was screened with the use of an image guided system. Performed By: #### L 505.5000, M100.2200, L7400.0353, L7000.1800 ####[facility] [address] [place], [place], [phone] DIAG Comment Normal . [facility] Comment on above: Order Comment: Speci men Comment: [id number] Comment: Source.............Cervix;EndocervixSpecimen Comment: LMP / Prev Treat...[id number] Comment: Other..............Specimen Comment: No. of containers..01 ThinPrep Vial Result Comment: NEGA TIVE FOR INTRAEPITHELIAL LESION OR MALIGNANCY. Performed By: #### L 505.5000, M100.2200, L7400.0353, L7000.1800 ####[facility] [address] [facility]. [place], [place], [phone] HPV RFLX Comment Normal . [facility] Comment on above: Order Comment: Speci men Comment: [id number] Comment: Source.............Cervix;EndocervixSpecimen Comment: LMP / Prev Treat...[id number] Comment: Other..............Specimen Comment: No. of containers..01 ThinPrep Vial Result Comment: The HPV DNA reflex criteria were not met with this specimen result therefore, no HPV testing was performed. Performed at: [address] [id number] [employer] Truck Driver: Pooja Finn PhD, Phone: [phone] Performed at: [address] [id number] [employer] Driver: Damaris Castro MD, Phone: [phone] Performed By: #### L 505.5000, M100.2200, L7400.0353, L7000.1800 ####[facility] [address] [place], [place], [phone] PAPSMR Comment Normal . [facility] Comment on above: Order Comment: Speci men Comment: [id number] Comment: Source.............Cervix;EndocervixSpecimen Comment: LMP / Prev Treat...[id number] Comment: Other..............Specimen Comment: No. of containers..01 ThinPrep Vial Result Comment: The Pap smear is a screening test designed to aid in the detection of premalignant and malignant conditions of the uterine cervix. It is not a diagnostic procedure and should not be used as the sole means of detecting cervical cancer. Both false-positive and false-negative reports do occur. Performed By: #### L 505.5000, M100.2200, L7400.0353, L7000.1800 ####[facility] [address] [place], [place], [phone] PERFORM Comment Normal . [facility] Comment on above: Order Comment: Speci men Comment: [id number] Comment: Source.............Cervix;EndocervixSpecimen Comment: LMP / Prev Treat...[id number] Comment: Other..............Specimen Comment: No. of containers..01 ThinPrep Vial Result Comment: Faye Jenkins, Income Tax Return Preparer (ASCP) Performed By: #### L 505.5000, M100.2200, L7400.0353, L7000.1800 ####[facility] [address] [place], [place], [phone] Chlamydia/GC FELICE aptimaon CHLAMY,NUC ACID Negative Normal Negative [facility] Comment on above: Performed By: #### L 505.5000, M100.2200, L7400.0353, L7000.1800 ####[facility] [address] [place], [address] GC BY NUC ACID Negative Normal Negative [facility] Comment on above: Result Comment: Perf ormed at: =G - [facility] [address] [place] [id number] [employer] Driver: Damaris Castro MD, Phone: [phone] Performed By: #### L 505.5000, M100.2200, L7400.0353, L7000.1800 ####[facility] [address] [place], [address] Urine Cultureon 10-07-2024 URC Culture exhibits no growth. Normal [facility] Comment on above: Performed By: #### L 505.5000, M100.2200, L7400.0353, L7000.1800 ####[facility] [address] [place], [address] Absolute lymphocyte countOrd ered By: Joceline Grande on 10-06-2024 Lymphocytes Auto (Unsp spec) [#/Vol] 1.64 10*3/uL 0.83-4.51 [facility] Absolute neutrophil countOrd ered By: Joceline Grande on 10-06-2024 Neutrophils (Bld) [#/Vol] 4.7 10*3/uL 2.0-7.7 [facility] Amphetamine detection with 1 000 ng/mL as cutoffOrdered By: Joceline Grande on 10-06-2024 Amphetamines Screen method >1000 ng/mL Ql (U) Negative < 200 ng/mL [facility] Amphetamines Screen method > 1000 ng/mL Ql (U)Ordered By: Joceline Grande on 10-06-2024 Amphetamines Ql (U) Negative <1000 ng/mL [facility] Urine Barbiturates Screen Negative < 200 ng/m L [facility] Automated lymphocyte count a s percentage of total leukocytesOrdered By: Joceline Grande on 10-06-2024 Lymphocytes/100 WBC Auto (Unsp spec) 23.6 % 19-41 [facility] Basophil percentageOrdered B y: Joceline Grande on 10-06-2024 Basophils/100 WBC (Bld) 0.4 % 0-1 [facility] C. trachomatis rRNA FELICE+prob e Ql (Unsp spec)Ordered By: Joceline Grande on 10-06-2024 Chlamydia DNA (FELICE) Negative Negative [facility] CBC W/Diff, Automatedon 09-27-2024 Absolute Lymph 1.64 X10 3/uL Normal 0.83-4.51 [facility] Comment on above: Performed By: #### L 509.4006, L100.0100, L3890.6301, L3890.6102, L3890.6006, L509.8002, BTS ####[facility] [address] [place], [address] Absolute Neut 4.7 X10 3/uL Normal 2.0-7.7 [facility] Comment on above: Performed By: #### L 509.4006, L100.0100, L3890.6301, L3890.6102, L3890.6006, L509.8002, BTS ####[facility] [address] [place], [address] Basophils/100 WBC (Bld) 0.4 % Normal 0-1 [facility] Comment on above: Performed By: #### L 509.4006, L100.0100, L3890.6301, L3890.6102, L3890.6006, L509.8002, BTS ####[facility] [address] [place], [address] Eosinophils/100 WBC (Bld) 0.4 % Normal 0-5 [facility] Comment on above: Performed By: #### L 509.4006, L100.0100, L3890.6301, L3890.6102, L3890.6006, L509.8002, BTS ####[facility] [address] [place], [address] Erythrocyte distribution width (RBC) [Ratio] 11.8 % Normal 11.6-14.6 [facility] Comment on above: Performed By: #### L 509.4006, L100.0100, L3890.6301, L3890.6102, L3890.6006, L509.8002, BTS ####[facility] [address] [place], [address] Hematocrit (Bld) [Volume fraction] 35.9 % Low 37-47 [facility] Comment on above: Performed By: #### L 509.4006, L100.0100, L3890.6301, L3890.6102, L3890.6006, L509.8002, BTS ####[facility] [address] [place], [address] Hemoglobin (Bld) [Mass/Vol] 12.3 g/dL Normal 12.0-15.0 [facility] Comment on above: Performed By: #### L 509.4006, L100.0100, L3890.6301, L3890.6102, L3890.6006, L509.8002, BTS ####[facility] [address] [place], [address] IG% 1.300 High 0.0-0.9 [facility] Comment on above: Result Comment: IG% - Immature Granulocytes (promyelocytes, myelocytes and metamyelocytes) > 1% indicates that a LEFT SHIFT is Present. Performed By: #### L 509.4006, L100.0100, L3890.6301, L3890.6102, L3890.6006, L509.8002, BTS ####[facility] [address] [place], [address] Lymphocytes/100 WBC (Bld) 23.6 % Normal 19-41 [facility] Comment on above: Performed By: #### L 509.4006, L100.0100, L3890.6301, L3890.6102, L3890.6006, L509.8002, BTS ####[facility] [address] [place], [address] MCH (RBC) [Entitic mass] 30.4 pg Normal 27.0-32.0 [facility] Comment on above: Performed By: #### L 509.4006, L100.0100, L3890.6301, L3890.6102, L3890.6006, L509.8002, BTS ####[facility] [address] [place], [address] MCHC (RBC) [Mass/Vol] 34.3 g/dL Normal 32-36 [facility] Comment on above: Performed By: #### L 509.4006, L100.0100, L3890.6301, L3890.6102, L3890.6006, L509.8002, BTS ####[facility] [address] [place], [address] MCV (RBC) [Entitic vol] 88.6 fL Normal 81-99 [facility] Comment on above: Performed By: #### L 509.4006, L100.0100, L3890.6301, L3890.6102, L3890.6006, L509.8002, BTS ####[facility] [address] [place], [address] Monocytes/100 WBC (Bld) 6.8 % Normal 0-10 [facility] Comment on above: Performed By: #### L 509.4006, L100.0100, L3890.6301, L3890.6102, L3890.6006, L509.8002, BTS ####[facility] [address] [place], [address] Neutrophils/100 WBC (Bld) 67.5 % Normal 47-70 [facility] Comment on above: Performed By: #### L 509.4006, L100.0100, L3890.6301, L3890.6102, L3890.6006, L509.8002, BTS ####[facility] [address] [place], [address] Nucleated RBC (Bld) [#/Vol] 0 10*3/uL Normal 0-5 [facility] Comment on above: Performed By: #### L 509.4006, L100.0100, L3890.6301, L3890.6102, L3890.6006, L509.8002, BTS ####[facility] [address] [place], [address] Platelet mean volume (Bld) [Entitic vol] 9.4 fL Normal 6.2-12.0 [facility] Comment on above: Performed By: #### L 509.4006, L100.0100, L3890.6301, L3890.6102, L3890.6006, L509.8002, BTS ####[facility] [address] [place], [address] Platelets (Bld) [#/Vol] 311 10*3/uL Normal 150-450 [facility] Comment on above: Performed By: #### L 509.4006, L100.0100, L3890.6301, L3890.6102, L3890.6006, L509.8002, BTS ####[facility] [address] [place], [address] RBC (Bld) [#/Vol] 4.05 10*6/uL Low 4.2-5.4 [facility] Comment on above: Performed By: #### L 509.4006, L100.0100, L3890.6301, L3890.6102, L3890.6006, L509.8002, BTS ####[facility] [address] [place], [address] RDW SD 37.7 fl Normal 35.1-43.9 [facility] Comment on above: Performed By: #### L 509.4006, L100.0100, L3890.6301, L3890.6102, L3890.6006, L509.8002, BTS ####[facility] [address] [place], [address] WBC (Bld) [#/Vol] 6.9 10*3/uL Normal 4.4-11.0 [facility] Comment on above: Performed By: #### L 509.4006, L100.0100, L3890.6301, L3890.6102, L3890.6006, L509.8002, BTS ####[facility] [address] [place], [place], [id number] Cervical or vagninal specime n microscopic examination by cytology stain (reported asOrdered By: Joceline Grande on 10-06-2024 Cytology report Cyto stain Doc (Cvx/Vag) Comment . [facility] Comment on above: The Pap smear is a s creening test designed to aid in thedetection of premalignant and malignant conditions of theuterine cervix. It is not a diagnostic procedure andshould not be used as the sole means of detecting cervicalcancer. Both false-positive and false-negative reports dooccur. Chlamydia trachomatis rRNA d etection by probe and target amplification methodOrdered By: Joceline Grande on 10-06-2024 C. trachomatis rRNA FELICE+probe Ql (Unsp spec) Negative Negative [facility] Eosinophil percentageOrdered By: Joceline Grande on 10-06-2024 Eosinophils/100 WBC (Bld) 0.4 % 0-5 [facility] Erythrocyte distribution wid th (RBC) [Ratio]Ordered By: Joceline Grande on 10-06-2024 Erythrocyte distribution width (RBC) [Entitic vol] 37.7 fL 35.1-43.9 [facility] Erythrocyte distribution wid th ratioOrdered By: Joceline Grande on 10-06-2024 Erythrocyte distribution width (RBC) [Ratio] 11.8 % 11.6-14.6 [facility] Erythrocyte distribution wid th standard deviationOrdered By: Joceline Grande on 10-06-2024 Erythrocyte distribution width (RBC) [Ratio] 37.7 fl 35.1-43.9 [facility] HBV surface Ag Ql (S)Ordered By: Joceline Grande on 10-06-2024 Hepatitis B Surface Antigen Non-Reactive Nonreactive [facility] Comment on above: Reactive: Presumptiv e evidence of HBV. Repeatedly reactive samples must be confirmed using a neutralization test ([employer] HBsAg Confirmatory Test)Non-Reactive: HBsAg not detected; does not exclude the possibility of exposure to HBV HIVon 10-06-2024 HIV Non-Reactive Normal Nonreactive [facility] Comment on above: Result Comment: Non- Reactive Reactive Repeatedly reactive samples must be confirmed according to CDC recommended confirmatory algorithms. The subresults for either HIVAG or AHIV can be used as an aid in the selection of the confirmation algorithm for reactive samples. Send out specimens with Reactive results to [facility] for confirmation. Order the HIV antibody detection and differentiation: lc#[id number] Performed By: #### L 509.4006, L100.0100, L3890.6301, L3890.6102, L3890.6006, L509.8002, BTS ####[facility] [address] [place], [address] Hematocrit Auto (Bld) [Volum e fraction]Ordered By: Joceline Grande on 10-06-2024 Hematocrit (Bld) [Volume fraction] 35.9 % Low 37-47 [facility] Hemoglobin measurementOrdere d By: Joceline Grande on 10-06-2024 Hemoglobin (Bld) [Mass/Vol] 12.3 g/dL 12.0-15.0 [facility] Hepatitis C Antibodyon 10-06 Hepatitis C Ab Non-Reactive Normal Nonreactive [facility] Comment on above: Result Comment: Reac tive: Presumptive evidence of antibodies to HCV. Follow CDC recommendations for supplemental testing. Non-Reactive: Antibodies to HCV were not detected; does not exclude the possibility of exposure to HCV Reactive Results are presumptive evidence of antibodies to HCV. Follow CDC recommendations for supplemental testing. Order confirmation testing: HCV Quant by PCR testing - HCVPCR lc#[id number] Non Reactive: < 0.8 Equivocal: >/= 0.8 to < 1.0 Reactive: >/= 1.0 The CDC requires that a reactive/equivocal HCV antibody result be sent out for confirmation. HCV Quant by PCR testing. Performed By: #### L 509.4006, L100.0100, L3890.6301, L3890.6102, L3890.6006, L509.8002, BTS ####[facility] [address] [place], [address] Hepatitis C antibodyOrdered By: Joceline Grande on 10-06-2024 Hepatitis C Antibody Non-Reactive Nonreactive [facility] Comment on above: Reactive: Presumptiv e evidence of antibodies to HCV. Follow CDC recommendations for supplemental testing.Non-Reactive: Antibodies to HCV were not detected; does not exclude the possibility of exposure to HCVReactive Results are presumptive evidence of antibodies to HCV. Follow CDC recommendations for supplemental testing.Order confirmation testing: HCV Quant by PCR testing - HCVPCR lc#[id number] Non Reactive: < 0.8 Equivocal: >/= 0.8 to < 1.0 Reactive: >/= 1.0The CDC requires that a reactive/equivocal HCV antibody result be sent out for confirmation. HCV Quant by PCR testing. Immature granulocytes/100 WB C Auto (Bld)Ordered By: Joceline Grande on 10-06-2024 Immature granulocytes/100 WBC (Bld) 1.300 % High 0.0-0.9 [facility] Comment on above: IG% - Immature Granu locytes (promyelocytes, myelocytes and metamyelocytes) > 1% indicates that a LEFT SHIFT is Present. L3890.6102on 10-06-2024 HEP B Surf Ag Non-Reactive Normal Nonreactive [facility] Comment on above: Result Comment: Reac tive: Presumptive evidence of HBV. Repeatedly reactive samples must be confirmed using a neutralization test ([employer] HBsAg Confirmatory Test) Non-Reactive: HBsAg not detected; does not exclude the possibility of exposure to HBV Performed By: #### L 509.4006, L100.0100, L3890.6301, L3890.6102, L3890.6006, L509.8002, BTS ####[facility] [address] [place], [address] L509.4006on 10-06-2024 Rubella IgG REAC Normal Nonreactive [facility] Comment on above: Result Comment: Anti body Result: Interpretation Non-Reactive: Non-Immune Reactive: Immune The following results were obtained with the [employer] Rubella IgG assay. Results from assays of other manufacturers cannot be used interchangeably. Performed By: #### L 509.4006, L100.0100, L3890.6301, L3890.6102, L3890.6006, L509.8002, BTS ####[facility] [address] [place], [address] Laboratory - CytologyOrdered By: Joceline Grande on 10-06-2024 Metal Furniture Assembler Cyto stain Nom (Cvx/Vag) [ID] Comment . [facility] Comment on above: Adalgisa Jenkins, Income Tax Return Preparer (ASCP) Laboratory - Microbiology an d Antimicrobial susceptibilityOrdered By: Joceline Grande on 10-06-2024 HBV surface Ag Ql (S) Non-Reactive Nonreactive [facility] Comment on above: Reactive: Presumptiv e evidence of HBV. Repeatedly reactive samples must be confirmed using a neutralization test ([employer] HBsAg Confirmatory Test)Non-Reactive: HBsAg not detected; does not exclude the possibility of exposure to HBV Laboratory - Miscellaneous t estsOrdered By: oJceline Grande on 10-06-2024 Service comment (Unsp spec) [Interp] . . [facility] Lymphocytes Auto (Unsp spec) [#/Vol]Ordered By: Joceline Grande on 10-06-2024 Lymphocytes (Bld) [#/Vol] 1.64 10*3/uL 0.83-4.5 1 [facility] Lymphocytes/100 WBC Auto (Un sp spec)Ordered By: Joceline Grande on 10-06-2024 Lymphocytes/100 WBC (Bld) 23.6 % 19-41 [facility] MCV (mean corpuscular volume ) determinationOrdered By: Joceline Grande on 10-06-2024 MCV (RBC) [Entitic vol] 88.6 fL 81-99 [facility] Mean corpuscular hemoglobin (MCH) determinationOrdered By: Joceline Grande on 10-06-2024 MCH (RBC) [Entitic mass] 30.4 pg 27.0-32.0 [facility] Mean corpuscular hemoglobin concentration (MCHC) determinationOrdered By: Joceline Grande on 10-06-2024 MCHC (RBC) [Mass/Vol] 34.3 g/dL 32-36 [facility] Mean platelet volume determi nationOrdered By: Joceline Grande on 10-06-2024 Platelet mean volume (Bld) [Entitic vol] 9.4 fL 6.2-12.0 [facility] Methadone, urineOrdered By: Joceline Grande on 10-06-2024 Urine Methadone Screen Negative < 300 ng/mL [facility] Monocyte percentageOrdered B y: Joceline Grande on 10-06-2024 Monocytes/100 WBC (Bld) 6.8 % 0-10 [facility] Neisseria gonorrhoeae nuclei c acid detection by amplified probe techniqueOrdered By: Joceline Grande on 10-06-2024 N. gonorrhoeae DNA FELICE+probe Ql (Unsp spec) Negative Negative [facility] Comment on above: Performed at: =[address] [id number] Director: Damaris Castro MD, Phone: [phone] Neutrophil percentageOrdered By: Joceline Grande on 10-06-2024 Neutrophils/100 WBC (Bld) 67.5 % 47-70 [facility] No Panel InformationOrdered By: Joceline Grande on 10-06-2024 Pap Smear Specimen Adequacy Comment . [facility] Comment on above: Satisfactory for rylie luation. No endocervical component is identified. Urine Buprenorphine Qualitative Negative < 200 ng/mL [facility] Urine Oxycodone Screen Negative < 100 ng/mL [facility] HIV (1&2) Antibody Non-Reactive Nonreactive [facility] Comment on above: Non-ReactiveReactive Repeatedly reactive samples must be confirmed according to CDC recommended confirmatory algorithms. The subresults for either HIVAG or AHIV can be used as an aid in the selection of the confirmation algorithm for reactive samples.[facility].Order the HIV antibody detection and differentiation: #[id number] Nucleated red blood cell per centageOrdered By: Joceline Grande on 10-06-2024 Nucleated RBC/100 WBC (Bld) [Ratio] 0 % 0-5 [facility] Senior Materials Planner Office Visit Reporton 10-06-2024 Senior Materials Planner Office Visit Report [facility] [address], [address] [place] [address] OFFICE VISIT Date of Service: 10/06/24 MR#: [id number] Acct: [id number] Name: NICA MANCILLA Rep #: [id number] : 2000 Provider: ARNIE Felton ams Age/Sex: 24/F Location: [facility] [place], [place] Status: Signed Intake Vital Signs 10/06/24 14:35 Height 5 ft 6.5 in Weight: 133 lb 4 oz BMI 21.2 BP 127/78 H Intake Visit 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 LMP 08/09, WANG 05/16 Chief Complaint: New OB Automatic Profile Shaper Operator Required: No Is patient in pain?: No Allergies house dust Allergy (Mild, Verified 10/06/24 14:33) sneezes Medications ???Medication ???Instructions ???Recorded ???Confirmed ???Type [id number] 400 mcg-om3 35 mg-dha 25 tab PO 09/22/24 10/06/24 History mg-epa 5 mg-fish oil chewable tablet magnesium glycinate 100 mg (as 100 mg PO QDAY 09/22/24 10/06/24 H istory glycinate) tablet Last Menstrual Period: 08/09/24 : Yes PFSH PFSH Medical History Sports physical Social History adopted: No household members: spouse number of children: 0 current occupational status: employed current occupation: [employer] pets and animals: No history of recent travel: No sexually active: Yes Smoking Status: Former smoker Tobacco: How many years used: 4 Smokeless tobacco user: other second hand exposure: No alcohol intake: never substance use type: marijuana and other details: June 2024 well-balanced diet: rarely or never caffeine: No eating out: 1-3 times/week what type of physical activity do you participate in: walking, weight training and other 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 OB Visit WANG Calculator Estimated Delivery Date Method Current WG Current Estimate 05/16/25 LMP (Certain) 8w 2d Other Estimates 05/19/25 Ultrasound #1 7w 6d Estimated Due Date: 05/16/25 Expected Delivery Route/Plan Labor Preferences- CB/BF classes: [] labor support person: [] labor intervention preferences: [] pain management options preferred: [] cut cord/dad catch: [] : [] PP control planned: [] discussed possible routes of delivery and associated risks: [] special requests: [] Specific Issue/Plans Covid status: [] Flu vaccine: [] Tdap vaccine: [] Rhogam: [] LARC form signed: [] Problem list reviewed and updated with the most current plan of care details and appropriate orders placed. Relevant counseling for the gestational age provided. Continue routine care and follow up unless otherwise noted in visit notes/problem list details Initial Weight: 133 lb Date -???-???-???-???-?? ?-???-???-???-???-? ??-???-???- EGA Weight BP Urine Prot -???-???-???-???-?? ?-???-???-???-???-? ??-???-???- Glucose FHR FuHt Pres Dilation -???-???-???-???-?? ?-???-???-???-???-? ??-???-???- Effaced St Visit Note 10/06/24 -???-???-???-???-?? ?-???-???-???-???-? ??-???-???- 8w 2d 133 lb 4 oz (+4 oz) 127/78 -???-???-???-???-?? ?-???-???-???-???-? ??-???-???- 160 -???-???-???-???-?? ?-???-???-???-???-? ??-???-???- KW- CRL cons with dates. declines NIPT Menstrual History Last Menstrual Period: 08/09/24 Reported LMP: definite Normal amount/duration: Yes On hormonal BC at conception: No hCG+: 09/06/24 Antepartum Record Genetic Screening: Congenital Heart Defect: Other, Neural Tube Defect: Other, Hemoglobinopathy Or Carrier: Other, Cystic Fibrosis: Other, Chromosome Abnormality: Other, Rafiq-Sachs: Other, Hemophilia: Other, Intellectual Disability/Autism: Other, Recurrent Loss/Stillbirth: Other, Other Structural Defect: Other, Other Genetic Disease: Other and Maternal Metabolic Disorder: Other Infection History: Live with someone with TB or Exposed to TB: No, Patient or Partner has history of Genital Herpes: No, Rash or Viral illness since last mentrual period: No, Prior GBS-Infected child: No, History of STD: No, HIV Infection: No, History of Hepatitis: No, Recent travel outside of [place]: No, Concern for hepatitis exposure: No, Varicella immune: Yes and Covid Vaccinated: No Medical History Medical History: Positive: Seasonal allergies and Negative: Diabetes, Hypert (more content not included)... Normal [facility] Platelet countOrdered By: Scott Grande on 10-06-2024 Platelets (Bld) [#/Vol] 311 10*3/uL 150-450 [facility] Quantitative urine opiates m easurementOrdered By: Joceline Grande on 10-06-2024 Opiates Ql (U) Negative < 300 ng/mL [facility] RBC Auto (Bld) [#/Vol]Ordere d By: Joceline Grande on 10-06-2024 RBC (Bld) [#/Vol] 4.05 10*6/uL Low 4.2-5.4 [facility] Rubella immune status determ ination by IgG antibody assayOrdered By: Joceline Grande on 10-06-2024 Rubella IgG Antibody REAC Nonreactive [facility] Comment on above: Antibody Result: Int erpretationNon-Reactive: Non-ImmuneReactive: ImmuneThe following results were obtained with the [employer] Rubella IgG assay. Results from assays of other manufacturers cannot be used interchangeably. Screening urine fentanyl burno surementOrdered By: Joceline Grande on 10-06-2024 fentaNYL Screen Ql (U) Negative [facility] Syphilis Antibodieson 2024 Syphilis Abs Non-Reactive Normal Nonreactive [facility] Comment on above: Performed By: #### L 509.4006, L100.0100, L3890.6301, L3890.6102, L3890.6006, L509.8002, BTS ####[facility] [address] [place], [address] T. pallidum abOrdered By: Scott Grande on 10-06-2024 Syphilis Total Antibody Non-Reactive Nonreactiv e [facility] Type AND Screenon 10-06-2024 ABO and Rh group Nom (Bld) Blood group O Rh(D) positive Normal [facility] Comment on above: Order Comment: PN Performed By: #### L 509.4006, L100.0100, L3890.6301, L3890.6102, L3890.6006, L509.8002, BTS ####[facility] [address] [place], [address] Urine Drug Screen (VISTA)on 10-06-2024 AMPHETAMINES Negative Normal <1000 ng/mL [facility] Comment on above: Order Comment: UNK Performed By: #### L 505.5000, M100.2200, L7400.0353, L7000.1800 ####[facility] [address] [place], [address] BARBITIURATES Negative Normal < 200 ng/mL [facility] Comment on above: Order Comment: UNK Performed By: #### L 505.5000, M100.2200, L7400.0353, L7000.1800 ####[facility] [address] [place], [address] BENZODIAZIPINE Negative Normal < 200 ng/mL [facility] Comment on above: Order Comment: UNK Performed By: #### L 505.5000, M100.2200, L7400.0353, L7000.1800 ####[facility] [address] [place], [address] BUP Ur Drug Scr Negative Normal < 200 ng/mL [facility] Comment on above: Order Comment: UNK Performed By: #### L 505.5000, M100.2200, L7400.0353, L7000.1800 ####[facility] [address] [place], [address] COCAINE Negative Normal < 300 ng/mL [facility] Comment on above: Order Comment: UNK Performed By: #### L 505.5000, M100.2200, L7400.0353, L7000.1800 ####[facility] [address] [place], [address] Fentanyl Negative Normal [facility] Comment on above: Order Comment: UNK Performed By: #### L 505.5000, M100.2200, L7400.0353, L7000.1800 ####[facility] [address] [place], [address] METHADONE Negative Normal < 300 ng/mL [facility] Comment on above: Order Comment: UNK Performed By: #### L 505.5000, M100.2200, L7400.0353, L7000.1800 ####[facility] [address] [place], [address] OPIATES Negative Normal < 300 ng/mL [facility] Comment on above: Order Comment: UNK Performed By: #### L 505.5000, M100.2200, L7400.0353, L7000.1800 ####[facility] [address] [place], [address] OXYCODONE Negative Normal < 100 ng/mL [facility] Comment on above: Order Comment: UNK Performed By: #### L 505.5000, M100.2200, L7400.0353, L7000.1800 ####[facility] [address] [place], [address] PCP Negative Normal < 25 ng/mL [facility] Comment on above: Order Comment: UNK Performed By: #### L 505.5000, M100.2200, L7400.0353, L7000.1800 ####[facility] [address] [place], [address] THC Negative Normal < 50 ng/mL [facility] Comment on above: Order Comment: UNK Performed By: #### L 505.5000, M100.2200, L7400.0353, L7000.1800 ####[facility] [address] [place], [address] Urine benzodiazepine levelOr dered By: Joceline Grande on 10-06-2024 Benzodiazepines Ql (U) Negative < 200 ng/mL [facility] Urine cocaine levelOrdered B y: Joceline Grande on 10-06-2024 Cocaine Ql (U) Negative < 300 ng/mL [facility] Urine cultureOrdered By: Eriberto Grande on 10-06-2024 Bacteria identified Cx Nom (U) Culture exhibits no growth. [facility] Urine lceme-7-afwgocehibscjw abinol (THC) measurementOrdered By: Joceline Grande on 10-06-2024 Cannabinoids Screen Ql (U) Negative < 50 ng/mL [facility] Urine phencyclidine (PCP) de tectionOrdered By: Joceline Grande on 10-06-2024 Phencyclidine Ql (U) Negative < 25 ng/mL [facility] White blood cell (WBC) count Ordered By: Joceline Grande on 10-06-2024 WBC (Bld) [#/Vol] 6.9 10*3/uL 4.4-11.0 [facility] fentaNYL Screen Ql (U)Ordere d By: Joceline Grande on 10-06-2024 Urine Fentanyl Screen [facility] 37 SCHEDULE FOR PHYSICAL AND FASTING LABS (wfe?) Normal [facility] Office Visiton 08-15-2024 Follow-up visit [id number] Nica Oconnell 2000 F Date Provider Department Center 08/15/2024 [id number] Family History Problem Relation Age of Onset No Known Problems Mother No Known Problems Father Family Status - Relation Status Age at Mother Alive Father Alive Level of Service:[address]27 [place] OFFICE/OUTPATIENT ESTABLISHED MDM 10 MIN Reason for Visit and Comments: Ear Fullness [595484] - Right ear X1wk Ear Pressure [722] Normal [facility] Progress Noteon 08-15-2024 Progress Note Patient was identified by name and Date of . Patient was identified by name and date of . Right ear irrigation order placed and signed by provider. Irrigation completed. Patient tolerated well. Medium amount removed Provider went back in room and rechecked ears(s) after irrigation and no further flushing needed. Normal [facility] Progress Note 08/15/2024 Nica Oconnell (: 2000) is a 24 y.o. female , Established patient, here for evaluation of the following chief complaint(s): Ear Fullness (Right ear X1wk) and Ear Pressure ASSESSMENT/PLAN: 1. Right ear impacted cerumen Assessment & Plan: Moderate amount of yellow cerumen removed from the right ear with irrigation, patient tolerated procedure well, postprocedure TM clear Orders: - Ear Cerumen Removal Follow up if symptoms worsen or fail to improve. SUBJECTIVE/OBJECTIV E: HPI - Nica Oconnell (: 2000) is a 24 y.o. female , Established patient, here for the evaluation of the following chief complaint(s): Ear Fullness (Right ear X1wk) and Ear Pressure Right ear pressure. Woke up with it feeling clogged about 1 week ago . No preceding URI. No fever or chills. Did notice some drainage. Slight decreased hearing. Reports the left ear feels fine. Does wear ear buds Prior to Admission medications Medication Sig Start Date End Date Taking? Authorizing Provider norethindrone-ethin yl estradiol (Camron Fe 07/18) 1-20 MG-MCG tablet 02/18/22 Historical Provider, spironolactone (Aldactone) 50 MG tablet Take 50 mg by mouth daily. Patient not taking: Reported on 08/15/2024 01/02/23 Historical Provider, SUMAtriptan (Imitrex) 25 MG tablet Take 1 tablet (25 mg) by mouth Once as needed for migraine for up to 30 doses. May repeat dose once in 2 hours if no relief. Do not exceed 2 doses in 24 hours. Patient not taking: Reported on 08/15/2024 01/05/23 Yue iBngham APRN - ACTION FINISHER Review of Systems Constitutional: Negative. HENT: Positive for ear discharge. Negative for congestion, ear pain, postnasal drip, rhinorrhea and sinus pressure. Right ear fullness Respiratory: Negative. Cardiovascular: Negative. Neurological: Negative. Vitals: 08/15/24 0801 BP: 103/56 Pulse: 71 Resp: 16 Temp: 36.7 ?C (98 ?F) TempSrc: Infrared SpO2: 97% Weight: 133 lb (60.3 kg) Physical Exam Constitutional: General: She is not in acute distress. Appearance: Normal appearance. She is not ill-appearing. HENT: Head: Normocephalic and atraumatic. Right Ear: There is impacted cerumen. Left Ear: Tympanic membrane normal. Mouth/Throat: Mouth: Mucous membranes are moist. Pharynx: Oropharynx is clear. No posterior oropharyngeal erythema. Cardiovascular: Rate and Rhythm: Normal rate and regular rhythm. Pulses: Normal pulses. Heart sounds: Normal heart sounds. Pulmonary: Effort: Pulmonary effort is normal. Breath sounds: Normal breath sounds. Skin: General: Skin is warm and dry. Neurological: Mental Status: She is alert and oriented to person, place, and time. An electronic signature was used to authenticate this note. Ez Pineda, SPAGHETTI MACHINE OPERATOR - ACTION FINISHER 08/15/2024 4:[address] [facility] 36on 08-10-2024 36 S: Patient spoke with [facility] nurse regarding right ear clogged B: Onset of symptoms/concern 1 week A: Has blockage in ear, stuffed for about a week. Some pressure but not really pain. Right ear. Denies: fever, sore throat, sinus congestion, drainage, R: Patient scheduled Tuesday 08/15 at 8am with Jose Pineda. Advised she can also try a nasal decongestant or OTC antihistamine per home care advice prior to the appointment. Patient understands care advice. No further needs at this time. Patient instructed to call back with new or worsening symptoms. Reason for Disposition Ear congestion Protocols used: Ear - Rssjzuquik-[id number] [facility] Vital Signs Date Time Vital Sign Value Performing Clinician Facility 05-02-2025 09:47-0500 Body height 168.91 cm Joceline Grande CNM Work Phone: [facility] 05-02-2025 09:47-0500 Body mass index (BMI) [Ratio] 29.3 kg/m2 Joceline Grande CNM Work Phone: [facility] 05-02-2025 09:47-0500 Body weight 83.68 kg Joceline Grande CNM Work Phone: [facility] 05-02-2025 09:47-0500 Diastolic blood pressure 81 mm[Hg] Joceline Grande CNM Work Phone: [facility] 05-02-2025 09:47-0500 Systolic blood pressure 129 mm[Hg] Joceline Grande CNM Work Phone: [facility] 04-24-2025 10:59-0400 Body height 168.91 cm Joceline Grande CNM Work Phone: [facility] 04-24-2025 10:59-0400 Body mass index (BMI) [Ratio] 29.2 kg/m2 Joceline Grande CNM Work Phone: [facility] 04-24-2025 10:59-0400 Body weight 83.48 kg Joceline Grande CNM Work Phone: [facility] 04-24-2025 10:59-0400 Diastolic blood pressure 76 mm[Hg] Joceline Grande CNM Work Phone: [facility] 04-24-2025 10:59-0400 Systolic blood pressure 118 mm[Hg] Joceline Grande CNM Work Phone: [facility] 04-18-2025 09:35-0400 Body mass index (BMI) [Ratio] 29 kg/m2 Joceline Grande CNM Work Phone: [facility] 04-18-2025 09:35-0400 Body weight 82.72 kg Joceline Grande CNM Work Phone: [facility] 04-18-2025 09:35-0400 Diastolic blood pressure 79 mm[Hg] Joceline Grande CNM Work Phone: [facility] 04-18-2025 09:35-0400 Systolic blood pressure 122 mm[Hg] Joceline Grande CNM Work Phone: [facility] 04-11-2025 10:53-0400 Body mass index (BMI) [Ratio] 28.5 kg/m2 Joceline Grande CNM Work Phone: [facility] 04-11-2025 10:53-0400 Body weight 81.41 kg Joceline Grande CNM Work Phone: [facility] 04-11-2025 10:53-0400 Diastolic blood pressure 75 mm[Hg] Joceline Grande CNM Work Phone: [facility] 04-11-2025 10:53-0400 Systolic blood pressure 115 mm[Hg] Joceline Grande CNM Work Phone: [facility] 03-29-2025 10:15-0400 Body height 168.91 cm Joceline Grande CNM Work Phone: [facility] 03-29-2025 10:15-0400 Body mass index (BMI) [Ratio] 28.1 kg/m2 Joceline Grande CNM Work Phone: [facility] 03-29-2025 10:15-0400 Body weight 80.39 kg Joceline Grande CNM Work Phone: [facility] 03-29-2025 10:15-0400 Diastolic blood pressure 79 mm[Hg] Joceline Grande CNM Work Phone: [facility] 03-29-2025 10:15-0400 Systolic blood pressure 132 mm[Hg] Joceline Grande CNM Work Phone: [facility] 03-14-2025 09:38-0400 Body height 168.91 cm Joceline Grande CNM Work Phone: [facility] 03-14-2025 09:38-0400 Body mass index (BMI) [Ratio] 28 kg/m2 Joceline Grande CNM Work Phone: [facility] 03-14-2025 09:38-0400 Body weight 80.03 kg Joceline Grande CNM Work Phone: [facility] 03-14-2025 09:38-0400 Diastolic blood pressure 81 mm[Hg] Joceline Grande CNM Work Phone: [facility] 03-14-2025 09:38-0400 Systolic blood pressure 129 mm[Hg] Joceline Grande CNM Work Phone: [facility] 03-01-2025 14:55-0400 Body height 168.91 cm Joceline Grande CNM Work Phone: [facility] 03-01-2025 14:55-0400 Body mass index (BMI) [Ratio] 27.3 kg/m2 Joceline Grande CNM Work Phone: [facility] 03-01-2025 14:55-0400 Body weight 78.13 kg Joceline Grande CNM Work Phone: [facility] 03-01-2025 14:55-0400 Diastolic blood pressure 74 mm[Hg] Joceline Grande CNM Work Phone: [facility] 03-01-2025 14:55-0400 Systolic blood pressure 121 mm[Hg] Joceline Grande CNM Work Phone: [facility] 02-14-2025 13:16-0400 Body height 168.91 cm Joceline Grande CNM Work Phone: [facility] 02-14-2025 13:00-0400 Body mass index (BMI) [Ratio] 26.9 kg/m2 Joceline Grande CNM Work Phone: [facility] 02-14-2025 13:00-0400 Body weight 76.74 kg Joceline Grande CNM Work Phone: [facility] 02-14-2025 13:00-0400 Diastolic blood pressure 72 mm[Hg] Joceline Grande CNM Work Phone: [facility] 02-14-2025 13:00-0400 Systolic blood pressure 116 mm[Hg] Joceline Grande CNM Work Phone: [phone] [place] [address] 01-23-2025 11:21-0400 Body height 168.91 cm Joceline Grande CNM Work Phone: [phone] [place] [address] 01-23-2025 11:21-0400 Body mass index (BMI) [Ratio] 25.4 kg/m2 Joceline Grande CNM Work Phone: [facility] 01-23-2025 11:21-0400 Body weight 72.68 kg Joceline Grande CNM Work Phone: [facility] 01-23-2025 11:21-0400 Diastolic blood pressure 76 mm[Hg] Joceline Grande CNM Work Phone: [facility] 01-23-2025 11:21-0400 Systolic blood pressure 124 mm[Hg] Joceline Grande CNM Work Phone: [facility] 12-29-2024 16:01-0400 Body height 168.91 cm Joceline CEBALLOSM Work Phone: [phone] [place] [address] 12-29-2024 15:59-0400 Body mass index (BMI) [Ratio] 23.8 kg/m2 Joceline Grande CNM Work Phone: [facility] 12-29-2024 15:59-0400 Body weight 67.81 kg Joceline Grande CNM Work Phone: [facility] 12-29-2024 15:59-0400 Diastolic blood pressure 86 mm[Hg] Joceline Grande CNM Work Phone: [facility] 12-29-2024 15:59-0400 Systolic blood pressure 126 mm[Hg] Joceline Grande CNM Work Phone: [facility] 11-29-2024 08:28-0400 Body height 168.91 cm Joceline Grande CNM Work Phone: [facility] 11-29-2024 08:28-0400 Body mass index (BMI) [Ratio] 22.6 kg/m2 Joceline Grande CNM Work Phone: [facility] 11-29-2024 08:28-0400 Body weight 64.46 kg Joceline Grande CNM Work Phone: [facility] 11-29-2024 08:28-0400 Diastolic blood pressure 76 mm[Hg] Joceline Grande CNM Work Phone: [facility] 11-29-2024 08:28-0400 Systolic blood pressure 120 mm[Hg] Joceline Grande CNM Work Phone: [facility] 11-03-2024 15:06-0400 Body mass index (BMI) [Ratio] 21.5 kg/m2 Joceline Grande CNM Work Phone: [facility] 11-03-2024 15:06-0400 Body weight 61.4 kg Joceline Grande CNM Work Phone: [facility] 11-03-2024 15:06-0400 Diastolic blood pressure 80 mm[Hg] Joceline Grande CNM Work Phone: [facility] 11-03-2024 15:06-0400 Systolic blood pressure 136 mm[Hg] Joceline Grande CNM Work Phone: [facility] 10-06-2024 14:35-0400 Body height 168.91 cm Joceline Grande CNM Work Phone: [facility] 10-06-2024 14:35-0400 Body mass index (BMI) [Ratio] 21.2 kg/m2 Joceline Grande CNM Work Phone: [facility] 10-06-2024 14:35-0400 Body weight 60.44 kg Joceline Grande CNM Work Phone: [facility] 10-06-2024 14:35-0400 Diastolic blood pressure 78 mm[Hg] Joceline Grande CNM Work Phone: [facility] 10-06-2024 14:35-0400 Systolic blood pressure 127 mm[Hg] Joceline Grande CNM Work Phone: [facility] 08-15-2024 08:01-0500 Body mass index (BMI) [Ratio] 20.83 kg/m2 Ez Bridenthal SPAGHETTI MACHINE OPERATOR - ACTION FINISHER Work Phone: [facility] 08-15-2024 08:01-0500 Body temperature 98.01 [degF] Ez Bridenthal SPAGHETTI MACHINE OPERATOR - ACTION FINISHER Work Phone: [facility] 08-15-2024 08:01-0500 Body weight 60.33 kg Ez Bridenthal SPAGHETTI MACHINE OPERATOR - ACTION FINISHER Work Phone: [facility] 08-15-2024 08:01-0500 Diastolic blood pressure 56 mm[Hg] Ez Bridenthal SPAGHETTI MACHINE OPERATOR - ACTION FINISHER Work Phone: [facility] 08-15-2024 08:01-0500 Heart rate 71 /min Ez Bridenthal SPAGHETTI MACHINE OPERATOR - ACTION FINISHER Work Phone: [facility] 08-15-2024 08:01-0500 Respiratory rate 16 /min Ez Bridenthal SPAGHETTI MACHINE OPERATOR - ACTION FINISHER Work Phone: [facility] 08-15-2024 08:01-0500 SaO2% (BldA) [Mass fraction] 97 % Ez Bridenthal SPAGHETTI MACHINE OPERATOR - ACTION FINISHER Work Phone: [facility] [employer] 08-15-2024 08:01-0500 Systolic blood pressure 103 mm[Hg] Ez Bridenthal SPAGHETTI MACHINE OPERATOR - ACTION FINISHER Work Phone: [facility] [employer] 02-02-2023 08:35-0400 Body height 170.2 cm Yue Bingham SPAGHETTI MACHINE OPERATOR - ACTION FINISHER Work Phone: [facility] [employer] 02-02-2023 08:35-0400 Body mass index (BMI) [Ratio] 21.3 kg/m2 Yue Bingham SPAGHETTI MACHINE OPERATOR - ACTION FINISHER Work Phone: [facility] [employer] 02-02-2023 08:35-0400 Body weight 61.69 kg Yue Bingham SPAGHETTI MACHINE OPERATOR - ACTION FINISHER Work Phone: [facility] [employer] 02-02-2023 08:35-0400 Diastolic blood pressure 64 mm[Hg] Yue Bingham SPAGHETTI MACHINE OPERATOR - ACTION FINISHER Work Phone: [facility] [employer] 02-02-2023 08:35-0400 Heart rate 68 /min Yue Bingham SPAGHETTI MACHINE OPERATOR - ACTION FINISHER Work Phone: [facility] [employer] 02-02-2023 08:35-0400 SaO2% (BldA) [Mass fraction] 98 % Yue Bingham SPAGHETTI MACHINE OPERATOR - ACTION FINISHER Work Phone: [facility] [employer] 02-02-2023 08:35-0400 Systolic blood pressure 112 mm[Hg] Yue Bingham SPAGHETTI MACHINE OPERATOR - ACTION FINISHER Work Phone: [facility] [employer] 01-05-2023 07:51-0400 Body height 170.2 cm Yue Bingham SPAGHETTI MACHINE OPERATOR - ACTION FINISHER Work Phone: [facility] [employer] 01-05-2023 07:51-0400 Body mass index (BMI) [Ratio] 20.2 kg/m2 Yue Bingham SPAGHETTI MACHINE OPERATOR - ACTION FINISHER Work Phone: [facility] [employer] 01-05-2023 07:51-0400 Body weight 58.51 kg Yue Bingham SPAGHETTI MACHINE OPERATOR - ACTION FINISHER Work Phone: [facility] [employer] 01-05-2023 07:51-0400 Diastolic blood pressure 60 mm[Hg] Yue Bingham SPAGHETTI MACHINE OPERATOR - ACTION FINISHER Work Phone: [facility] [employer] 01-05-2023 07:51-0400 Heart rate 75 /min Yue Bingham SPAGHETTI MACHINE OPERATOR - ACTION FINISHER Work Phone: [facility] 01-05-2023 07:51-0400 SaO2% (BldA) [Mass fraction] 98 % Yue Bingham SPAGHETTI MACHINE OPERATOR - ACTION FINISHER Work Phone: [facility] 01-05-2023 07:51-0400 Systolic blood pressure 118 mm[Hg] Yuemichelle Bingham SPAGHETTI MACHINE OPERATOR - ACTION FINISHER Work Phone: [facility] Encounters Encounter Date Encounter Type Care Provider Facility Start: 05-16-2025 ambulatory Maribel Madrigalty:[facility] Start: 05-10-2025 End: 05-10-2025 ambulatory Lovely Arguello Facility:[facility] Start: 05-02-2025 End: 05-02-2025 ambulatory Maribel Martínez Facility:[facility] Start: 04-24-2025 End: 04-24-2025 ambulatory Joceline Grande Facility[facility] Start: 04-18-2025 End: 04-18-2025 Patient encounter procedure Garima MEDELLIN -Laboratory Specimen Work Phone: Start: 04-18-2025 End: 04-18-2025 Patient encounter procedure Garima MEDELLIN -[facility] Work Phone: Start: 04-18-2025 End: 04-18-2025 ambulatory Joceline CEBALLOSM Work Phone: -[facility] Start: 04-18-2025 End: 04-18-2025 ambulatory Garima Christensen NP Facility:[facility] Start: 04-11-2025 End: 04-11-[address] Lovely Arguello MD -[facility] Work Phone: Start: 04-11-2025 End: 04-11-2025 ambulatory Joceline CEBALLOSM Work Phone: -[facility] Start: 03-29-2025 End: 03-29-[address] Maribel Martínez DO -[facility] Work Phone: Start: 03-29-2025 End: 03-29-2025 ambulatory Joceline Grande CNM Work Phone: -[facility] Start: 03-14-2025 End: 03-14-2025 Patient encounter procedure Joceline CEBALLOSM -[facility] Work Phone: Start: 03-14-2025 End: 03-14-2025 ambulatory Joceline Grande CNM Work Phone: [facility] Start: 03-01-2025 End: 03-01-[address] Maribel Martínez DO -[facility] Work Phone: Start: 03-01-2025 End: 03-01-2025 ambulatory Joceline Grande CNM Work Phone: [facility] Start: 02-14-2025 End: 02-14-2025 Patient encounter procedure Garima MEDELLIN -[facility] Work Phone: Start: 02-14-2025 End: 02-14-2025 ambulatory Joceline Grande CNM Work Phone: [facility] Start: 02-14-2025 End: 02-14-2025 ambulatory Joceline Grande Facility:[facility] Start: 01-23-2025 End: 01-23-2025 Patient encounter procedure Joceline Grande CNM -[facility] Work Phone: Start: 01-23-2025 End: 01-23-2025 ambulatory Joceline Grande CNM Work Phone: -[facility] Start: 12-29-2024 End: 12-29-[address] Lovely Arguello MD -[facility] Work Phone: Start: 12-29-2024 End: 12-29-2024 ambulatory Joceline Grande CNM Work Phone: [facility] Start: 12-19-2024 End: 12-19-2024 ambulatory MD [facility] Start: 11-29-2024 End: 11-29-2024 Patient encounter procedure Garima MEDELLIN -[facility] Work Phone: Start: 11-29-2024 End: 11-29-2024 ambulatory Joceline Grande CNM Work Phone: [facility] Work Phone: Start: 11-03-2024 End: 11-03-[address] Maribel Martínez DO -[facility] Work Phone: Start: 11-03-2024 End: 11-03-2024 ambulatory Maribel Martínez Facility:[facility] Start: 10-06-2024 End: 10-06-2024 Patient encounter procedure Joceline Grande CNM -[facility] Work Phone: Start: 10-06-2024 End: 10-06-2024 ambulatory Joceline Grande CNM Work Phone: [facility] Work Phone: Start: 10-06-2024 End: 10-06-2024 ambulatory Joceline Grande Facility:[facility] Start: 08-15-2024 End: 08-15-2024 Office outpatient visit 10 minutes Ez Pineda SPAGHETTI MACHINE OPERATOR - ACTION FINISHER Work Phone: [facility] Comment on above: Right ear impacted c erumen (Primary Dx) Start: 08-15-2024 End: 08-15-2024 ambulatory EZ KARINAL [facility] Start: 08-10-2024 End: 08-10-2024 ambulatory Beba Segovia RN [facility] Clinical Communication Start: 08-10-2024 End: 08-10-2024 Patient encounter procedure Beba Segovia RN [facility] Communication Start: 02-02-2023 End: 02-02-2023 Patient encounter status Yue Bingham SPAGHETTI MACHINE OPERATOR - ACTION FINISHER Work Phone: [facility] Start: 02-02-2023 End: 02-02-2023 Periodic preventive med est patient 18-39 yrs Yue Bingham SPAGHETTI MACHINE OPERATOR - ACTION FINISHER Work Phone: [facility] Comment on above: Well female exam wit h routine gynecological exam (Primary Dx); Sudden onset unilateral headache; Encounter for Papanicolaou smear for cervical cancer screening; Need for Tdap vaccination Start: 01-05-2023 End: 01-05-2023 Office outpatient visit 15 minutes Yue Bingham SPAGHETTI MACHINE OPERATOR - ACTION FINISHER Work Phone: [facility] Comment on above: Sudden onset unilate ral headache (Primary Dx); Dizziness; Nausea and vomiting, unspecified vomiting type Start: 12-31-2022 ambulatory Bozena chapa RN [facility] Start: 12-31-2022 Patient encounter procedure Bozena Abad RN [facility] Start: 12-31-2022 Telephone encounter Bozena Lin RN [facility] Clinical Communication Procedures Date Procedure Procedure Detail Performing Clinician Start: 04-18-2025 Beta-hemolytic Strep tococcus culture Joceline CEBALLOS Work Phone: Start: 02-14-2025 Serologic test for syphilis Joceline CEBALLOS Work Phone: Start: 10-06-2024 Liquid based cervica l cytology screening Joceline CEBALLOS Work Phone: Comment on above: NEGATIVE FOR INTRAEP ITHELIAL LESION OR MALIGNANCY. This liquid based Th inPrep(R) pap test was screened withthe use of an image guided system. The HPV DNA reflex c chely were not met with this specimenresult therefore, no HPV testing was performed.Performed at: [facility] [place], [place] [id number] Director: Pooja Fnin PhD, Phone: [phone] at: [address] [id number] Director: Damaris Castro MD, Phone: [phone] Start: 10-06-2024 Methadone measurement, urine Joceline Grande CNM Work Phone: Start: 10-06-2024 Hepatitis C antibody measurement Joceline CEBALLOS Work Phone: Comment on above: Reactive: Presumptiv e evidence of antibodies to HCV. Follow CDC recommendations for supplemental testing.Non-Reactive: Antibodies to HCV were not detected; does not exclude the possibility of exposure to HCVReactive Results are presumptive evidence of antibodies to HCV. Follow CDC recommendations for supplemental testing.Order confirmation testing: HCV Quant by PCR testing - HCVPCR #[id number] Non Reactive: < 0.8 Equivocal: >/= 0.8 to < 1.0 Reactive: >/= 1.0The [facility] requires that a reactive/equivocal HCV antibody result be sent out for confirmation. HCV Quant by PCR testing. Start: 10-06-2024 Rubella IgG measurement Joceline Grande [facility] Work Phone: Comment on above: Antibody Result: Int erpretationNon-Reactive: Non- ImmuneReactive: ImmuneThe following results were obtained with the [employer] Rubella IgG assay. Results from assays of other manufacturers cannot be used interchangeably. Start: 10-06-2024 Serologic test for syphilis Joceline Grande [facility] Work Phone: Start: 10-06-2024 Urine culture Joceline bansal [facility] Work Phone: Start: 02-02-2023 Adult depression scr eening assessment Yue Bingham SPAGHETTI MACHINE OPERATOR - ACTION FINISHER Work Phone: Start: 02-02-2023 Microscopic observat ion [Identifier] in Cervix by Cyto stain Beba Segovia RN Start: 01-02-2023 Adult depression scr eening assessment Yue Bingham SPAGHETTI MACHINE OPERATOR - ACTION FINISHER Work Phone: Plan of Treatment Date Care Activity Detail Author Start: 2075 RSV Immunization for Adults (1 - 1-dose 75+ series) RSV Immunization for Adults (1 - 1-dose 75+ series) [facility] Start: 2050 Zoster Vaccines (1 of 2) Zoster Vacc deon (1 of 2) [facility] Start: 02-02-2033 DTaP/Tdap/Td Vaccine s (8 - Td or Tdap) DTaP/Tdap/Td Vaccines (8 - Td or Tdap) [facility] Start: 02-02-2026 Screening for malign ant neoplasm of cervix Pap Smear [facility] Start: 05-02-2025 End: 05-02-2025 Patient encounter procedure History of marijuana use -[facility] Work Phone: Start: 04-24-2025 End: 04-24-2025 Patient encounter procedure History of marijuana use -[facility] Work Phone: Start: 04-18-2025 Beta-hemolytic Streptococcus culture Group B Streptococcus Culture [facility] Start: 04-18-2025 End: 04-18-2025 Patient encounter procedure Departed Clinical -Laboratory Specimen Work Phone: Start: 04-18-2025 End: 04-18-2025 Patient encounter procedure History of marijuana use -[facility] Work Phone: Start: 02-14-2025 CBC W Auto Different ial panel - Blood [facility] Start: 02-14-2025 Measurement of gluco se 2 hours after glucose challenge for glucose tolerance test [facility] Start: 02-14-2025 Serologic test for syphilis [facility] Start: 02-14-2025 [facility] Start: 10-06-2024 Liquid based cervica l cytology screening [facility] Start: 09-28-2024 End: 09-28-2024 Patient encounter procedure 09/28/2024 8:00 AM EDT Office Visit [facility] [address] [place] [address] Ez Pineda, SPAGHETTI MACHINE OPERATOR - ACTION FINISHER [address] [facility] [place] [address] [facility] Start: 08-15-2024 End: 08-15-2025 Ear Cerumen Removal Ear Cerumen Removal Procedures Routine Right ear impacted cerumen Expected: 08/15/2024 (Approximate), Expires: 08/15/2025 [facility] Work Phone: Comment on above: Expected: 08/15/2024 (Approximate), Expires: 08/15/2025 Start: 08-15-2024 End: 08-15-2024 Patient encounter procedure 08/15/2024 8:00 AM EST Office Visit [facility] [address] [facility] [place] [address] Ez Pineda, SPAGHETTI MACHINE OPERATOR - ACTION FINISHER [address] [facility] [place] [address] [facility] Start: 02-28-2024 COVID-19 Vaccine ( season) COVID-19 Vaccine ( season) [facility] Start: 02-28-2024 Influenza vaccination Influenza Vacc ine (#1) [facility] Start: 02-03-2024 Depression Screening Depression Scre ening [facility] Start: 01-03-2024 COVID-19 Vaccine (#1) COVID-19 Vacci ne (#1) [facility] Comment on above: Postponed from 09/06 (Patient Refused) Start: 01-03-2024 Depression Screening Depression Scre ening [facility] Start: 01-03-2024 Hepatitis C screening Hepatitis C Sc reening [facility] Comment on above: Postponed from 03/09 (Patient Refused) Start: 01-03-2024 HIV screening HIV Screening [facility] Comment on above: Postponed from 03/09 (Patient Refused) Start: 01-03-2024 HPV Vaccines (1 - 2- dose series) HPV Vaccines (1 - 2-dose series) [facility] Comment on above: Postponed from 03/09 (Patient Refused) Start: 2023 DTaP/Tdap/Td Vaccine s (7 - Td or Tdap) DTaP/Tdap/Td Vaccines (7 - Td or Tdap) [facility] Start: 02-27-2023 Influenza vaccination Influenza Vacc ine (#1) [facility] Start: 02-02-2023 End: 01-31-2024 CBC panel - Blood by Automated count CBC Lab Routine Well female exam with routine gynecological exam Sudden onset unilateral headache Expected: 02/02/2023, Expires: 01/31/2024 [facility] Work Phone: Comment on above: Expected: 02/02/2023 , Expires: 01/31/2024 Start: 02-02-2023 End: 01-31-2024 Comprehensive metabolic 1998 panel - Serum or Plasma Comprehensive metabolic panel Lab Routine Well female exam with routine gynecological exam Sudden onset unilateral headache Expected: 02/02/2023, Expires: 01/31/2024 [facility] Comment on above: Expected: 02/02/2023 , Expires: 01/31/2024 Start: 02-02-2023 End: 01-31-2024 Thyrotropin [Units/volume] in Serum or Plasma TSH Lab Routine Sudden onset unilateral headache Expected: 02/02/2023, Expires: 01/31/2024 [facility] Comment on above: Expected: 02/02/2023 , Expires: 01/31/2024 Start: 02-02-2023 End: 02-02-2023 Patient encounter procedure 02/02/2023 8:40 AM EDT Procedure Visit [facility] [address] [place] [address] Yue Bingham, SPAGHETTI MACHINE OPERATOR - ACTION FINISHER [address] [place] [address] [facility] Start: 01-05-2023 End: 01-06-2024 MR Brain WO contrast MR brain wo contrast Imaging Routine Sudden onset unilateral headache Dizziness Nausea and vomiting, unspecified vomiting type Expected: 01/05/2023, Expires: 01/06/2024 [facility] Work Phone: Comment on above: Expected: 01/05/2023 , Expires: 01/06/2024 Start: 01-05-2023 End: 01-05-2023 Patient encounter procedure 01/05/2023 7:40 AM EDT Office Visit [facility] [address] [place] [address] Yue Bingham, SPAGHETTI MACHINE OPERATOR - ACTION FINISHER [address] [place], [place] [id number] [facility] Start: 2021 Screening for malign ant neoplasm of cervix Pap Smear [facility] Start: 2018 Hepatitis C screening Hepatitis C Sc reening [facility] Start: 2015 HPV Vaccines (1 - 3- dose series) HPV Vaccines (1 - 3-dose series) [facility] Start: 2012 Depression Screening Depression Scre ening [facility] Start: 2011 HPV Vaccines (1 - 2- dose series) HPV Vaccines (1 - 2-dose series) [facility] Start: 2000 COVID-19 Vaccine (#1) COVID-19 Vacci ne (#1) [facility] Start: 2000 HIV screening HIV Screening [facility] alth CBC W Auto Different ial panel - Blood [facility] Cytology Cervical or vaginal smear or scraping study Pap Smear Pathology and Cytology Routine Well female exam with routine gynecological exam Encounter for Papanicolaou smear for cervical cancer screening 02/02/2023 8:58 AM EDT [facility] Erythrocyte mean corpuscular volume determination [facility] Hematocrit [Volume Fraction] of Blood [facility] Hemoglobin [Mass/vol ume] in Blood [facility] HPV High Risk PCR HPV High Risk PCR Microbiology Routine Well female exam with routine gynecological exam Encounter for Papanicolaou smear for cervical cancer screening 02/02/2023 8:58 AM EDT [facility] Leukocytes [#/volume ] in Blood [facility] Mean corpuscular hemoglobin concentration determination [facility] Mean corpuscular hemoglobin determination [facility] Measurement of gluco se 2 hours after glucose challenge for glucose tolerance test [facility] Neutrophil count [facility] Neutrophil percent differential count [facility] Path report.final Dx Spec [facility] Platelets [#/volume] in Blood [facility] Red blood cell count [facility] Red cell distributio n width determination [facility] Serologic test for syphilis [facility] Ultrasound scan for growth [facility] Immunizations Immunization Date Immunization Notes Care Provider Angelito dennison 03-29-2025 influenza, injectabl e, madin jarret canine kidney, preservative free Joceline Grande CNM Work Phone: [facility] 03-14-2025 tetanus toxoid, redu sanjay diphtheria toxoid, and acellular pertussis vaccine, adsorbed Joceline Grande CNM Work Phone: [facility] 02-02-2023 tetanus toxoid, redu sanjay diphtheria toxoid, and acellular pertussis vaccine, adsorbed Yue Bingham SPAGHETTI MACHINE OPERATOR - ACTION FINISHER Work Phone: [facility] 04-25-2021 influenza, injectabl e, quadrivalent, preservative free [facility]zen[facility] 04-25-2021 influenza virus vacc ine, unspecified formulation [facility] 02-20-2021 tuberculin skin test ; purified protein derivative solution, intradermal Bozena [facility] 02-05-2021 tuberculin skin test ; purified protein derivative solution, intradermal [facility] 03-17-2018 meningococcal oligosaccharide (groups A, C, Y and W-135) diphtheria toxoid conjugate vaccine (MCV4O) [facility] 2013 tetanus toxoid, redu sanjay diphtheria toxoid, and acellular pertussis vaccine, adsorbed [facility] 2013 varicella virus vaccine [facility]2005 diphtheria, tetanus toxoids and acellular pertussis vaccine [facility]-2005 measles, mumps and rubella virus vaccine [facility] 05-28-2005 poliovirus vaccine, inactivated [facility] 09-07-2001 diphtheria, tetanus toxoids and acellular pertussis vaccine [facility] 06-08-2001 haemophilus influenz ae type b vaccine, PRP-OMP conjugate [facility] 06-08-2001 measles, mumps and rubella virus vaccine [facility] 06-08-2001 pneumococcal conjuga te vaccine, 13 valent [facility] 2001 hepatitis B vaccine, pediatric or pediatric/adolescent dosage [facility] 2001 poliovirus vaccine, inactivated [facility] 2001 varicella virus vaccine [facility] 2000 diphtheria, tetanus toxoids and acellular pertussis vaccine [facility] 2000 haemophilus influenz ae type b vaccine, PRP-OMP conjugate [facility] 2000 pneumococcal conjuga te vaccine, 13 valent [facility] 2000 diphtheria, tetanus toxoids and acellular pertussis vaccine [facility] 2000 haemophilus influenz ae type b vaccine, PRP-OMP conjugate [facility] 2000 pneumococcal conjuga te vaccine, 13 valent [facility] 2000 poliovirus vaccine, inactivated [facility] 2000 diphtheria, tetanus toxoids and acellular pertussis vaccine [facility] 2000 haemophilus influenz ae type b vaccine, PRP-OMP conjugate [facility] 2000 pneumococcal conjuga te vaccine, 13 valent [facility] poliovirus vaccine, inactivated [facility] 2000 hepatitis B vaccine, pediatric or pediatric/adolescent dosage [facility] 2000 hepatitis B vaccine, pediatric or pediatric/adolescent dosage [facility] Payers Date Payer Category Payer Unknown [id number] 2024 Self-pay 2024 Unknown [id number] 2024 Commercial Managed C are - HMO [id number] 2024 Unknown [id number] 2022 Private Health Insurance [facility] [id number] 2022-Present [address] [place] [address] Commercial [id number] 2000 Unknown [id number] 2.16.840.1.119410.3.579.2. 479 Unknown [id number] 2.16.840.1.409657.3.579.2. 462 Unknown [id number] 2.16.840.1.965506.3.579.2. 462 Unknown [id number] 2.16.840.1.004250.3.579.2. 462 Unknown [id number] 2.16.840.1.819906.3.579.2. 462 Unknown [id number] 2.16.840.1.932048.3.579.2. 462 Unknown [id number] 2.16.840.1.627798.3.579.2. 462 Unknown [id number] 2.16.840.1.593393.3.579.2. 462 Unknown [id number] 2.16.840.1.631150.3.579.2. 462 Unknown [id number] 2.16.840.1.005262.3.579.2. 462 Unknown [id number] 2.16.840.1.748463.3.579.2. 462 Unknown [id number] 2.16.840.1.494178.3.579.2. 462 Unknown [id number] 2.16.840.1.326152.3.579.2. 462 Unknown [id number] 2.16.840.1.269044.3.579.2. 462 Unknown [id number] 2.16.840.1.537750.3.579.2. 462 Unknown [id number] 2.16.840.1.890388.3.579.2. 462 Unknown [id number] 2.16.840.1.981914.3.579.2. 462 Unknown [id number] 2.16.840.1.704074.3.579.2. 462 Unknown [id number] 2.16.840.1.331523.3.579.2. 462 Social History Date Type Detail Facility Tobacco smoking stat us NHIS Never smoked tobacco [facility] Start: 04-01-2022 End: 08-15-2024 Alcohol intake Current drinker of alcohol (finding) [facility] Start: 04-01-2022 End: 02-02-2023 History of Social function [facility] Start: 04-01-2022 End: 02-02-2023 Tobacco use panel [facility] Start: 2000 Sex Assigned At Not on file [facility] Start: 2000 Sex Assigned At Female S [facility] Start: 01-02-2023 Gender identity Identifies as female gender (finding) [facility] Start: 01-02-2023 Sexual orientation Heterosexual (fin ding) [facility] Start: 12-26-2022 End: 02-02-2023 Exposure to SARS-CoV-2 (event) Not sure [facility] Start: 01-27-2022 End: 10-10-2024 Sex Female (finding) [facility] Start: 09-22-2024 End: 09-22-2024 Tobacco smoking status NHIS Ex-smoker (finding) [facility] Clinical Notes 12-31-2022 to 04-18-2025 Note Date & Type Note Facility 04-18-2025 Progress note [facility] 04-11-2025 Progress note [facility] 03-29-2025 Progress note [facility] 03-14-2025 Progress note [facility] 03-01-2025 Progress note [facility] 03-01-2025 Progress note Note Date/Time March 01, 2025 3:[facility] [address] [place] [address], [address] [place] [address] OFFICE VISIT Date of Service: 03/01/25 MR#: [id number] Acct: [id number] Name: NICA MANCILLA Rep #: [id number] : 2000 Provider: Dr. Zoë Martínez DO Age/Sex: 24/F Location: [facility] [place] [place] Status: Signed Intake Vital Signs 01/23/25 11:21 02/14/25 13:16 03/01/25 14:55 Height 5 ft 6.5 in 5 ft 6.5 in 5 ft 6.5 in Weight: 172 lb 4 oz BMI 27.3 BP 121/74 H Intake Visit Reasons: 30 wk ob Automatic Profile Shaper Operator Required: No Is patient in pain?: No Allergies house dust Allergy (Mild, Verified 03/01/25 14:58) sneezes Medications ?Medication ?Instructions ?Recorded ?Confirmed ?Type [id number] 400 mcg-om3 35 mg-dha 25 tab PO 09/22/2409/20 History mg-epa 5 mg-fish oil chewable tablet magnesium glycinate 100 mg (as 100 mg PO QDAY 09/22/24 03/01/25 History glycinate) tablet famotidine 20 mg tablet (Pepcid) 20 mg PO BID #60 tabs 03/01/25 03/01/25 Rx Last Menstrual Period: 08/09/24 Zika: Zika virus screening: Negative : No PFSH PFSH Medical History Sports physical Social History adopted: No household members: spouse number of children: 0 current occupational status: employed current occupation: [employer] pets and animals: No history of recent travel: No sexually active: Yes Smoking Status: Former smoker Tobacco: How many years used: 4 Smokeless tobacco user: other second hand exposure: No alcohol intake: never substance use type: marijuana and other details: June 2024 well-balanced diet: rarely or never caffeine: No eating out: 1-3 times/week what type of physical activity do you participate in: walking, weight training and other details: 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 OB Visit WANG Calculator Estimated Delivery Date Method Current WG Current Estimate 05/16/25 LMP (Certain) 29w 1d Other Estimates 05/19/25 Ultrasound #1 28w 5d Expected Delivery Route/Plan Labor Preferences- CB/BF classes: encouraged labor support person: Chip labor intervention preferences: pain management options preferred: epidural cut cord/dad catch: yes : yes PP control planned: discussed discussed possible routes of delivery and associated risks: [] special requests: [] Specific Issue/Plans Covid status: [] Flu vaccine: [] Tdap vaccine: [] Rhogam: na LARC form signed: yes Problem list reviewed and updated with the most current plan of care details and appropriate orders placed. Relevant counseling for the gestational age provided. Continue routine care and follow up unless otherwise noted in visit notes/problem list details Initial Weight: 133 lb Date -?-?-?-?-?-?-?-?-?-?-?-?- EGA Weight BP Urine Prot -?-?-?-?-?-?-?-?-?-?-?-?- Glucose FHR FuHt Pres Dilation -?-?-?-?-?-?-?-?-?-?-?-?- Effaced St Visit Note 10/06/24 -?-?-?-?-?-?-?-?-?-?-?-?- 8w 2d 133 lb 4 oz (+4 oz) 127/78 -?-?-?-?-?-?-?-?--?-?-?-?- 160 -?-?-?-?-?-?-?-?-?-?-?-?- KW- CRL cons wit h dates. declines NIPT 11/03/24 -?-?-?-?-?-?-?-?-?-?-?-?- 12w 2d 135 lb 6 oz (+2 lb 6 oz) 136/80 Negative -?-?-?-?-?-?-?-?-?-?-?-?- Negative 157 -?-?-?-?-?-?-?-?-?-?-?-?- JV- no cramping or spotting. no concerns. declines nipt. 11/29/24 -?-?-?-?-?-?-?-?-?-?-?-?- 16w 0d 142 lb 2 oz (+9 lb 2 oz) 120/76 Negative -?-?-?-?-?-?-?-?-?-?-?-?- Negative 163 -?-?-?-?-?-?-?-?-?-?-?-?- -No VB. Feels well. Brief US confirm FHT. 12/29/24 -?-?-?-?-?-?-?-?-?-?-?-?- 20w 2d 149 lb 8 oz (+16 lb 8 oz) 126/86 Negative -?-?-?-?-?-?-?-?-?-?-?-?- Negative 150 -?-?-?-?-?-?-?-?-?-?-?-?- - no vb lof go od fm no reulga rctx 01/23/25 -?-?-?-?-?-?-?-?-?-?-?-?- 23w 6d 160 lb 4 oz (+27 lb 4 oz) 124/76 Negative -?-?-?-?-?-?-?-?-?-?-?-?- Negative 140 24 -?-?-?-?-?-?-?-?-?-?-?-?- KW- No vb/crampi ng. +fm. glucose and weight gain discussed. 02/14/25 -?-?-?-?-?-?-?-?-?-?-?-?- 27w 0d 169 lb 3 oz (+36 lb 3 oz) 116/72 Negative -?-?-?-?-?-?-?-?-?-?-?-?- Negative 145 27 -?-?-?-?-?-?-?-?-?-?-?-?- MH-No VB, LOF. G ood FM. Larc. 28 wk labs pending 03/01/25 -?-?-?-?-?-?-?-?-?-?-?-?- 29w 1d 172 lb 4 oz (+39 lb 4 oz) 121/74 -?-?-?-?-?-?-?-?-?-?-?-?- 135 30 -?-?-?-?-?-?-?-?-?-?-?-?- JV- no lof, vagi nal bleeding, or dec fm. indigestion getting worse. pepcid script sent in. ACOG First Trimester First Trimester: Discussed Second Trimester Second Trimester: Signs and Symptoms of Labor, Selecting a care provider, Reproductive Life Planning & Contreception, Care Planning, Depression/Anxiety and Intimate Partner Violence; Discussed Tobacco Cessation Third Trimester Third Trimester: Pain Management Plans, Labor support person(s), Immediate Larc, Signs and Symptoms of Preeclampsia, Infant Feeding No , [place] Education, Family Medical Leave or Disability Forms and Intimate Partner Violence Coding Level of Care Code OB Routine Diagnoses History of marijuana use F12.91 Supervision of high risk in second trimester O09.92 Trimester: second trimester 29 weeks gestation of Z3A.29 Weeks of gestation: 29 weeks Assessment and Plan Assessment and Plan (1) History of marijuana use: Status: Acute Comment: daily, quit 06/2024. counseling provided. aware of random drug testing (2) Supervision of high-risk : Status: Acute Qualifiers: Trimester: second trimester Qualified Code(s): O09.92 - Supervision of high risk , unspecified, second trimester Comment: PRR, , WANG 05/16 girl Chip (3) : Status: Acute Qualifiers: Weeks of gestation: 29 weeks Qualified Code(s): Z3A.29 - 29 weeks gestation of Comment: declines NIPT, carrier and AFP, normal anatomy/consistent dates Orders: Orders POC Urinalysis 2 Dip (Clinic) Today Medications: New famotidine (Pepcid) 20 mg PO BID 60 tabs 4RF 03/01/25 1522 <Electronically signed by Maribel Townsend DO> Date _ Maribel Martínez DO [facility] Signature: Date (if applicable) CC: ~ [facility] Work Phone: 1(805) 188-135007-28-2025 Evaluation note* Diagnosis Onset Date Resolution Status Admit Date History of marijuana use acute January 23, 2025 11:18am acute January 23 11:18am Supervision of high-risk acute January 23, 2025 11:18am History of marijuana use acute February 14, 2025 12:47pm acute February 14 12:47pm Supervision of high-risk acute February 14 12:47pm History of marijuana use acute March 01, 2025 2:44pm acute March 01, 2025 2:44pm Supervision of high-risk acute March 01 2:44pm History of marijuana use acute March 14, 2025 9:34am acute February 9:34am Supervision of high-risk acute March 14, 2025 9:34am History of marijuana use acute March 29, 2025 10:07am acute March 29, 10:07am Supervision of high-risk acute March 29 10:07am History of marijuana use acute April 11, 2025 10:50am acute April 11, 2025 10:50am Supervision of high-risk acute April 11 10:50am History of marijuana use acute April 18, 2025 9:32am acute April 18, 2025 9:32am Supervision of high-risk acute April 18 9:32am History of marijuana use acute April 24, 2025 10:54am acute April 24, 2025 10:54am Supervision of high-risk acute April 24 10:54am History of marijuana use acute May 02, 2025 9:45am acute May 02, 2025 9:45am Supervision of high-risk acute May 02 9:45am [facility] Work Phone: 1(500) 992-247507-28-2025 Progress [facility] [address], [address] [place] [id number] OFFICE VISIT Date of Service: 01/23/25 MR#: [id number] Acct: [id number] Name: NICA MANCILLA Rep #: [id number] : 2000 Provider: ARNIE Grande Age/Sex: 24/F Location: [facility] [place] [place] Status: Signed Intake Vital Signs 11/29/24 08:28 12/29/24 16:01 01/23/25 11:21 Height 5 ft 6.5 in 5 ft 6.5 in 5 ft 6.5 in Weight: 160 lb 4 oz BMI 25.4 BP 124/76 H Intake Visit Reasons: 24 wk ob Chief Complaint: 24wk OB Automatic Profile 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 Operator Required: No Is patient in pain?: No Allergies house dust Allergy (Mild, Verified 01/23/25 11:19) sneezes Medications ?Medication ?Instructions ?Recorded ?Confirmed ?Type [id number] 400 mcg-om3 35 mg-dha 25 tab PO 09/22/2412/28 History mg-epa 5 mg-fish oil chewable tablet magnesium glycinate 100 mg (as 100 mg PO QDAY 09/22/24 01/23/25 History glycinate) tablet Last Menstrual Period: 08/09/24 : No PFSH PFSH Medical History Sports physical Social History adopted: No household members: spouse number of children: 0 current occupational status: employed current occupation: [employer] pets and animals: No history of recent travel: No sexually active: Yes Smoking Status: Former smoker Tobacco: How many years used: 4 Smokeless tobacco user: other second hand exposure: No alcohol intake: never substance use type: marijuana and other details: June 2024 well-balanced diet: rarely or never caffeine: No eating out: 1-3 times/week what type of physical activity do you participate in: walking, weight training and other 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 OB Visit WANG Calculator Estimated Delivery Date Method Current WG Current Estimate 05/16/25 LMP (Certain) 23w 6d Other Estimates 05/19/25 Ultrasound #1 23w 3d Expected Delivery Route/Plan Labor Preferences- CB/BF classes: [] labor support person: [] labor intervention preferences: [] pain management options preferred: [] cut cord/dad catch: [] : [] PP control planned: [] discussed possible routes of delivery and associated risks: [] special requests: [] Specific Issue/Plans Covid status: [] Flu vaccine: [] Tdap vaccine: [] Rhogam: [] LARC form signed: [] Problem list reviewed and updated with the most current plan of care details and appropriate ordersplaced. Relevant counseling for the gestational age provided. Continue routine care and follow up unless otherwise noted in visit notes/problem list details Initial Weight: 133 lb Date -?-?-?-?-?-?-?-?-?-?-?-?- EGA Weight BP Urine Prot -?-?-?-?-?-?-?-?-?-?-?-?- Glucose FHR FuHt Pres Dilation -?-?-?-?-?--?-?-?-?-?-?-?- Effaced St Visit Note 10/06/24 -?-?-?-?-?-?-?-?-?-?-?-?- 8w 2d 133 lb 4 oz (+4 oz) 127/78 -?-?-?-?-?-?-?-?-?-?-?-?- 160 -?-?-?-?-?-?-?-?-?-?-?-?- KW- CRL cons wit h dates. declines NIPT 11/03/24 -?-?-?-?-?-?-?-?-?-?-?-?- 12w 2d 135 lb 6 oz (+2 lb 6 oz) 136/80 Negative -?-?-?-?-?-?-?-?-?-?-?-?- Negative 157 -?--?-?-?-?-?-?-?-?-?-?-?- JV- no cramping or spotting. no concerns. declines nipt. 11/29/24 -?-?-?-?-?-?-?-?-?-?-?-?- 16w 0d 142 lb 2 oz (+9 lb 2 oz) 120/76 Negative -?-?-?-?-?-?-?-?-?-?-?-?- Negative 163 -?-?-?-?-?-?-?-?-?-?-?-?- MH-No VB. Feels well. Brief US confirm FHT. 12/29/24 -?-?-?-?-?-?-?-?-?-?-?-?- 20w 2d 149 lb 8 oz (+16 lb 8 oz) 126/86 Negative -?-?-?-?-?-?-?-?-?-?-?-?- Negative 150 -?--?-?-?-?-?-?-?-?-?-?-?- SM- no vb lof go od fm no reulga rctx 01/23/25 -?-?-?-?-?-?-?-?-?-?-?-?- 23w 6d 160 lb 4 oz (+27 lb 4 oz) 124/76 Negative -?-?-?-?-?-?-?-?-?-?-?-?- Negative 140 24 -?-?-?-?-?-?-?-?-?-?-?-?- KW- No vb/crampi ng. +fm. glucose and weight gain discussed. ACOG First Trimester First Trimester: Discussed Second Trimester Second Trimester: Signs and Symptoms of Labor, Selecting a care provider, Reproductive Life Planning & Contreception, Care Planning, Depression/Anxiety and Intimate Partner Violence; Discussed Tobacco Cessation Third Trimester Third Trimester: Pain Management Plans, Labor support person(s), Immediate Larc, Signs and Symptoms of Preeclampsia, Feeding No , Education and Family Medical Leave or Disability Forms ROS Const Reports system reviewed and no additional complaints, except as documented Eyes Reports system reviewed and no additional complaints, except as documented ENT Reports system reviewed and no additional complaints, except as documented Card Reports system reviewed and no additional complaints, except as documented Resp Reports system reviewed and no additional complaints, except as documented GI Reports system reviewed and no additional complaints, except as documented, Denies nausea and Denies vomiting Reports system reviewed and no additional complaints, except as documented Musc Reports system reviewed and no additional complaints, except as documented Skin/Breast Reports system reviewed and no additional complaints, except as documented Neuro Yes system reviewed and no additional complaints, except as documented Psych Reports system reviewed and no additional complaints, except as documented Endo Reports system reviewed and no additional complaints, except as documented /Lymph Reports system reviewed and no additional complaints, except as documented Aller/Immun Reports system reviewed and no additional complaints, except as documented Exam Const General: cooperative, healthy appearing and no acute distress Orientation: alert, awake and oriented x3 Neck Neck: normal visual inspection and full ROM Resp Effort & Inspection: normal respiratory effort, able to speak in complete sentences and symmetric chest movement GI Inspection: normal to inspection Palpation: soft and other Other: gravid Skin General: no rashes or lesions noted Neuro General: patient alert, patient awake and patient oriented x3 Cognition: normal cognition Speech: speech normal Gait: normal gait Motor: muscle tone normal throughout Extrem General: normal to inspection and full ROM Psych Appearance: grossly normal Mental Status: mental status grossly normal Mood: congruent mood Affect: normal affect Speech and Movement: speech and movement normal Attitude: cooperative Thought Process: normal Thought Content: normal Judgment: judgment good Results POC Urinalysis 2 Dip (Clinic) Office Urine Glucose Negative Last Edit by Maggie Martin on 01/23/25 11:28 Office Urine Protein Negative Last Edit by Maggie Martin on 01/23/25 11:28 Coding Level of Care Code OB Routine Diagnoses History of marijuana use F12.91 Supervision of high risk in second trimester O09.92 Trimester: second trimester 23 weeks gestation of Z3A.23 Weeks of gestation: 23 weeks Assessment and Plan Assessment and Plan (1) History of marijuana use: Status: Acute Comment: daily, quit 06/2024. counseling provided. aware of random drug testing (2) Supervision of high-risk : Status: Acute Qualifiers: Trimester: second trimester Qualified Code(s): O09.92 - Supervision of high risk , unspecified, second trimester Comment: PRR, , WANG 05/16 girl Chip (3) : Status: Acute Qualifiers: Weeks of gestation: 23 weeks Qualified Code(s): Z3A.23 - 23 weeks gestation of Comment: declines NIPT, carrier and AFP, normal anatomy/consistent dates Orders: Orders POC Urinalysis 2 Dip (Clinic) Today O09.92 - Supervision of high risk , unspecified, second trimester, Z3A.23 - 23 weeks gestation of CBC W/Diff, Automated Today O09.92 - Supervision of high risk , unspecified, second trimester, Z3A.23 - 23 weeks gestation of Glucose Challenge Gest 1H 50g Today O09.92 - Supervision of high risk , unspecified, second trimester, Z13.1 - Encounter for screening for diabetes mellitus, Z3A.23 - 23 weeks gestation of Syphilis Antibodies Today O09.92 - Supervision of high risk , unspecified, second trimester, Z3A.23 - 23 weeks gestation of HIV Today O09.92 - Supervision of high risk , unspecified, second trimester, Z3A.23 - 23 weeks gestation of Plan Details Additional Comments: ACOG trimester education reviewed and updated. see problem list details for updated plan management information and see below for orders placed atthis visit. GA appropriate handout given. 01/23/25 1141 s ARNIE> Date _ Joceline Grande CNM Cosignstacia Signature: Date (if applicable) CC: ~ [facility]07-03-2025 Evaluation note* Diagnosis Onset Date Resolution Status Admit Date History of marijuana use acute December 29, 2024 3:56pm acute December 29, 2024 3:56pm Supervision of high-risk acute December 29, 2024 3 :56pm History of marijuana use acute January 23, 2025 11:18am acute January 23 11:18am Supervision of high-risk acute January 23, 2025 11:18am History of marijuana use acute February 14, 2025 12:47pm acute February 14 025 12:47pm Supervision of high-risk acute February 14 12:47pm History of marijuana use acute March 01, 2025 2:44pm acute March 01, 2025 2:44pm Supervision of high-risk acute March 01 2:44pm History of marijuana use acute March 14, 2025 9:34am acute February 9:34am Supervision of high-risk acute March 14, 2025 9:34am History of marijuana use acute March 29, 2025 10:07am acute March 29 10:07am Supervision of high-risk acute March 29 10:07am [employer] Work Phone: 1(453) 192-450207-03-2025 Evaluation note* Diagnosis Onset Date Resolution Status Admit Date History of marijuana use acute December 29, 2024 3:56pm acute December 29, 2024 3:56pm Supervision of high-risk acute December 29, 2024 3 :56pm History of marijuana use acute January 23, 2025 11:18am acute January 23 11:18am Supervision of high-risk acute January 23, 2025 11:18am History of marijuana use acute February 14, 2025 12:47pm acute February 14 12:47pm Supervision of high-risk acute February 14 12:47pm History of marijuana use acute March 01, 2025 2:44pm acute March 01, 2025 2:44pm Supervision of high-risk acute March 01 2:44pm History of marijuana use acute March 14, 2025 9:34am acute February 9:34am Supervision of high-risk acute March 14, 2025 9:34am History of marijuana use acute March 29, 2025 10:07am acute March 29 10:07am Supervision of high-risk acute March 29 10:07am History of marijuana use acute April 11, 2025 10:50am acute April 11, 2025 10:50am Supervision of high-risk acute April 11 10:50am History of marijuana use acute April 18, 2025 9:32am acute April 18, 2025 9:32am Supervision of high-risk acute April 18 9:32am History of marijuana use acute April 24, 2025 10:54am acute April 24, 2025 10:54am Supervision of high-risk acute April 24 10:54am [facility] Work Phone: [phone] Evaluation note* Diagnosis Onset Date Resolution Status Admit Date History of marijuana use acute November 29, 2024 8:24am acute November 29, 2024 8:24am Supervision of high-risk acute November 29, 2024 8 :24am History of marijuana use acute December 29, 2024 3:56pm acute December 29, 2024 3:56pm Supervision of high-risk acute December 29, 2024 3 :56pm History of marijuana use acute January 23, 2025 11:18am acute January 23 11:18am Supervision of high-risk acute January 23, 2025 11:18am History of marijuana use acute February 14, 2025 12:47pm acute February 14, 025 12:47pm Supervision of high-risk acute February 14 12:47pm History of marijuana use acute March 01, 2025 2:44pm acute March 01, 2025 2:44pm Supervision of high-risk acute March 01, 025 2:44pm History of marijuana use acute March 14, 2025 9:34am acute February 9:34am Supervision of high-risk acute March 14, 2025 9:34am [facility] Work Phone: [phone] Evaluation note* Diagnosis Onset Date Resolution Status Admit Date History of marijuana use acute November 03, 2024 2:56pm acute November 03, 2024 2:56pm Supervision of high-risk acute November 03, 2024 2: 56pm History of marijuana use acute November 29, 2024 8:24am acute November 29, 2024 8:24am Supervision of high-risk acute November 29, 2024 8 :24am History of marijuana use acute December 29, 2024 3:56pm acute December 29, 2024 3:56pm Supervision of high-risk acute December 29, 2024 3 :56pm History of marijuana use acute January 23, 2025 11:18am acute January 23 11:18am Supervision of high-risk acute January 23, 2025 11:18am History of marijuana use acute February 14, 2025 12:47pm acute February 14 025 12:47pm Supervision of high-risk acute February 14 12:47pm [employer] [facility] Work Phone: [phone] Evaluation note* Diagnosis Onset Date Resolution Status Admit Date History of marijuana use acute November 03, 2024 2:56pm acute November 03, 2024 2:56pm Supervision of high-risk acute November 03, 2024 2: 56pm History of marijuana use acute November 29, 2024 8:24am acute November 29, 2024 8:24am Supervision of high-risk acute November 29, 2024 8 :24am History of marijuana use acute December 29, 2024 3:56pm acute December 29, 2024 3:56pm Supervision of high-risk acute December 29, 2024 3 :56pm History of marijuana use acute January 23, 2025 11:18am acute January 23 11:18am Supervision of high-risk acute January 23, 2025 11:18am History of marijuana use acute February 14, 2025 12:47pm acute February 14, 025 12:47pm Supervision of high-risk acute February 14 12:47pm History of marijuana use acute March 01, 2025 2:44pm acute March 01, 2025 2:44pm Supervision of high-risk acute March 01 2:44pm [employer] [facility] Work Phone: [phone]) 255-299504-10-2025 Evaluation note* Diagnosis Onset Date Resolution Status Admit Date History of marijuana use acute October 06, 2024 2:30pm acute October 06 2:30pm Supervision of high-risk acute October 06, 2024 2:30pm [facility] Work Phone: [phone] Evaluation note* Diagnosis Onset Date Resolution Status Admit Date History of marijuana use acute October 06, 2024 2:30pm acute October 06 2:30pm Supervision of high-risk acute October 06, 2024 2:30pm History of marijuana use acute November 03, 2024 2:56pm acute November 03, 2024 2:56pm Supervision of high-risk acute November 03, 2024 2: 56pm History of marijuana use acute November 29, 2024 8:24am acute November 29, 2024 8:24am Supervision of high-risk acute November 29, 2024 8 :24am [facility] Work Phone: [phone] Evaluation note* Diagnosis Onset Date Resolution Status Admit Date History of marijuana use acute October 06, 2024 2:30pm acute October 06 2:30pm Supervision of high-risk acute October 06, 2024 2:30pm History of marijuana use acute November 03, 2024 2:56pm acute November 03, 2024 2:56pm Supervision of high-risk acute November 03, 2024 2: 56pm History of marijuana use acute November 29, 2024 8:24am acute November 29, 2024 8:24am Supervision of high-risk acute November 29, 2024 8 :24am History of marijuana use acute December 29, 2024 3:56pm acute December 29, 2024 3:56pm Supervision of high-risk acute December 29, 2024 3 :56pm [facility] Work Phone: [phone] Evaluation note* Diagnosis Onset Date Resolution Status Admit Date History of marijuana use acute October 06, 2024 2:30pm acute October 06 2:30pm Supervision of high-risk acute October 06, 2024 2:30pm History of marijuana use acute November 03, 2024 2:56pm acute November 03, 2024 2:56pm Supervision of high-risk acute November 03, 2024 2: 56pm History of marijuana use acute November 29, 2024 8:24am acute November 29, 2024 8:24am Supervision of high-risk acute November 29, 2024 8 :24am History of marijuana use acute December 29, 2024 3:56pm acute December 29, 2024 3:56pm Supervision of high-risk acute December 29, 2024 3 :56pm History of marijuana use acute January 23, 2025 11:18am acute January 23 11:18am Supervision of high-risk acute January 23, 2025 11:18am [facility] Work Phone: [phone] Evaluation + Plan note* Assessment & Plan Note - BREANNA Maki CNP - 08/15/2024 4:12 PM ESTAssociated Problem(s): Right ear impacted cerumen Moderate amount of yellow cerumen removed from the right ear with irrigation, patient tolerated procedure well, postprocedure TM clear [id number] NoteModerate amount of yellow cerumen removed from the right ear with irrigation, patient tolerated procedure well, [facility] Miscellaneous Notes* Assessment & Plan Note - BREANNA Maki CNP - 08/15/2024 4:12 PM ESTAssociated Problem(s): Right ear impacted cerumen Moderate amount of yellow cerumen removed from the right ear with irrigation, patient tolerated procedure well, postprocedure TM clear documented in this [facility]02-17-2025 History of Present illness Narrative* Aylin Galicia - 08/15/2024 8:00 AM EST Patient was identified by name and Date of . Patient was identified by name and date of . Right ear irrigation order placed and signed by provider. Irrigation completed. Patient tolerated well. Medium amount removed Provider went back in room and rechecked ears(s) after irrigation and no further flushing needed. * BREANNA Maki CNP - 08/15/2024 8:00 AM EST Images from the original note were not included. 08/15/2024 Nica Oconnell (: 2000) is a 24 y.o. female , Established patient, here for evaluation ofthe following chief complaint(s): Ear Fullness (Right ear X1wk) and Ear Pressure ASSESSMENT/PLAN: 1. Right ear impacted cerumen Assessment & Plan: Moderate amount of yellow cerumen removed from the right ear with irrigation, patient tolerated procedure well, postprocedure TM clear Orders: - Ear Cerumen Removal Follow up if symptoms worsen or fail to improve. SUBJECTIVE/OBJECTIVE: HPI - Nica Oconnell (: 2000) is a 24 y.o. female , Established patient, here for the evaluation of the following chief complaint(s): Ear Fullness (Right ear X1wk) and Ear Pressure Right ear pressure. Woke up with it feeling clogged about 1 week ago . No preceding URI. No fever or chills. Did notice some drainage. Slight decreased hearing. Reports the left ear feels fine. Does wear ear buds Prior to Admission medications Medication Sig Start Date End Date Taking? Authorizing Provider norethindrone-ethinyl estradiol (Camron Fe 07/18) 1-20 MG-MCG tablet 02/18/22 Historical Provider, spironolactone (Aldactone) 50 MG tablet Take 50 mg by mouth daily. Patient not taking: Reported on 08/15/2024 01/02/23 Historical Provider, SUMAtriptan (Imitrex) 25 MG tablet Take 1 tablet (25 mg) by mouth Once as needed for migraine for up to 30 doses. May repeat dose once in 2 hours if no relief. Do not exceed 2 doses in 24 hours. Patient not taking: Reported on 08/15/2024 01/05/23 Yue Bingham APRN - [place] Review of Systems Constitutional: Negative. HENT: Positive for ear discharge. Negative for congestion, ear pain, postnasal drip, rhinorrhea andsinus pressure. Right ear fullness Respiratory: Negative. Cardiovascular: Negative. Neurological: Negative. Vitals: 08/15/24 0801 BP: 103/56 Pulse: 71 Resp: 16 Temp: 36.7 C (98 F) TempSrc: Infrared SpO2: 97% Weight: 133 lb (60.3 kg) Physical Exam Constitutional: General: She is not in acute distress. Appearance: Normal appearance. She is not ill-appearing. HENT: Head: Normocephalic and atraumatic. Right Ear: There is impacted cerumen. Left Ear: Tympanic membrane normal. Mouth/Throat: Mouth: Mucous membranes are moist. Pharynx: Oropharynx is clear. No posterior oropharyngeal erythema. Cardiovascular: Rate and Rhythm: Normal rate and regular rhythm. Pulses: Normal pulses. Heart sounds: Normal heart sounds. Pulmonary: Effort: Pulmonary effort is normal. Breath sounds: Normal breath sounds. Skin: General: Skin is warm and dry. Neurological: Mental Status: She is alert and oriented to person, place, and time. An electronic signature was used to authenticate this note. BREANNA Chavis CNP 08/15/2024 4:12 PM documented in this [facility]02-17-2025 Instructions* Patient Instructions* Aylin Galicia - 08/15/2024 8:00 AM EST SCHEDULE FOR PHYSICAL AND FASTING LABS (wfe?) documented in this [facility]02-12-2025 Telephone encounter Note* Telephone Encounter - Beba Segovia RN - 08/10/2024 12:33 PM EST S: Patient spoke with [facility] nurse regarding right ear clogged B: Onset of symptoms/concern 1 week A: Has blockage in ear, stuffed for about a week. Some pressure but not really pain. Right ear. Denies: fever, sore throat, sinus congestion, drainage, R: Patient scheduled Tuesday 08/15 at 8am with Jose Pineda. Advised she can also try a nasal decongestant or OTC antihistamine per home care advice prior to the appointment. Patient understands care advice. No further needs at this time. Patient instructed to call back with new or worsening symptoms. Reason for Disposition Ear congestion Protocols used: Ear - [id number] [facility] HospitalKgcucl2000 Miscellaneous Notes* Telephone Encounter - Beba Segovia RN - 08/10/2024 12:33 PM EST S: Patient spoke with [facility] nurse regarding right ear clogged B: Onset of symptoms/concern 1 week A: Has blockage in ear, stuffed for about a week. Some pressure but not really pain. Right ear. Denies: fever, sore throat, sinus congestion, drainage, R: Patient scheduled Tuesday 08/15 at 8am with Jose Pineda. Advised she can also try a nasal decongestant or OTC antihistamine per home care advice prior to the appointment. Patient understands care advice. No further needs at this time. Patient instructed to call back with new or worsening symptoms. Reason for Disposition Ear congestion Protocols used: Ear - [id number] documented in this [facility]STr[facility] [id number] History of Present illness Narrative* Yue Bingham APRN - [place] - 02/02/2023 8:40 AM EDT Images from the original note were not included. [facility] [address] [facility] [place] [address] Dept: [phone] Dept Loc: [phone] HPI: Nica Oconnell is a 22 y.o. female who presents today for her medical conditions/complaints as noted below. Nica Oconnell is c/o of Gynecologic Exam and Health Maintenance (HIV--declines, Hep C--declines,HPV--declines, COVID--has not had) HPI- Nica Oconnell presents today for her well female examination and for follow up on her headaches. LMP was around 01/29/23- is on oral contraception and doing well. She was started on Imitrex forher headaches at her previous appointment and had an order placed for an MRI. Plans to call and schedule her MRI today. Used the Imitrex once and it helped. Currently experiencing headaches once a week and still has occasional vomiting with the headaches. Continues to experience some dizziness as well. Denies worsening symptoms. Health Maintenance: Periodically performs self breast examinations; denies nipple discharge, nodules, or discoloration. Denies known family history of breast cancer. Last mammogram was: N/A. Last papsmear was: today's pap will be her baseline pap. Declines screening for STI's. Declines to be vaccinated for HPV. Declines screening for HIV and Hep C. Declines to be vaccinated for COVID- 19. Tdap isdue for booster next month (last Tdap was 03/09/23)- would like her booster today. See ROS for additional information. No past medical history on file. No past surgical history on file. Family History Problem Relation Name Age of Onset No Known Problems Mother No Known Problems Father Social History Tobacco Use Smoking status: Never Smokeless tobacco: Never Substance Use Topics Alcohol use: Yes Current Outpatient Medications Medication Sig Dispense Refill norethindrone-ethinyl estradiol (Camron Fe 07/18) 1-20 MG-MCG tablet spironolactone (Aldactone) 50 MG tablet Take 50 mg by mouth daily. SUMAtriptan (Imitrex) 25 MG tablet Take 1 tablet (25 mg) by mouth Once as needed for migraine for up to 30 doses. May repeat dose once in 2 hours if no relief. Do not exceed 2 doses in 24 hours. 30 tablet 0 No current facility-administered medications for this visit. No Known Allergies Health Maintenance Topic Date Due Pap Smear Never done Influenza Vaccine (1) 02/27/2023 HPV Vaccines (1 - 2-dose series) 01/03/2024 (Originally 2011) HIV Screening 01/03/2024 (Originally 2000) Hepatitis C Screening 01/03/2024 (Originally 2018) COVID-19 Vaccine (1) 01/03/2024 (Originally 2000) DTaP/Tdap/Td Vaccines (7 - Td or Tdap) 2023 Depression Screening 01/03/2024 Zoster Vaccines (1 of 2) 2050 HIB Vaccines Completed Hepatitis B Vaccines Completed IPV Vaccines Completed MMR Vaccines Completed Varicella Vaccines Completed Meningococcal Vaccine Completed Pneumococcal Vaccine: Pediatrics (0 to 5 Years) and At-Risk Patients (6 to 64 Years) Completed Hepatitis A Vaccines Aged Out Rotavirus Vaccines Aged Out Subjective: Review of Systems Constitutional: Negative for chills and fever. HENT: Negative for hearing loss and trouble swallowing. Eyes: Negative for pain and visual disturbance. Respiratory: Negative for cough, chest tightness, shortness of breath and wheezing. Cardiovascular: Negative for chest pain, palpitations and leg swelling. Gastrointestinal: Negative for abdominal distention, abdominal pain, blood in stool, constipation and diarrhea. Endocrine: Negative for polydipsia, polyphagia and polyuria. Genitourinary: Negative for dysuria, hematuria, menstrual problem, vaginal bleeding, vaginal discharge and vaginal pain. Musculoskeletal: Negative for arthralgias and myalgias. Skin: Negative for color change, pallor, rash and wound. Neurological: Positive for dizziness and headaches. Negative for syncope and weakness. Hematological: Does not bruise/bleed easily. Psychiatric/Behavioral: Negative for dysphoric mood. The patient is not nervous/anxious. Objective: BP 112/64 Pulse 68 Ht 5' 7 (1.702 m) Wt 136 lb (61.7 kg) LMP 01/29/2023 (Approximate) SpO2 98% BMI 21.30 kg/m Physical Exam Constitutional: Oriented to person, place, and time. Appears well-developed and well-nourished. No distress. HENT: Head: Normocephalic and atraumatic. Right Ear: External ear normal. Left Ear: External ear normal. Nose: Nose normal. Mouth/Throat: Oropharynx is clear and moist. No oropharyngeal exudate. Bilateral TM's pearly sepulveda with a good cone of light bilaterally. Eyes: Conjunctivae and EOM are normal. Pupils are equal, round, and reactive to light. Right eye exhibits no discharge. Left eye exhibits no discharge. Neck: Normal range of motion. Neck supple. No thyromegaly present. Cardiovascular: Normal rate, regular rhythm, normal heart sounds and intact distal pulses. Exam reveals no friction rub. No murmur heard. Carotid upstrokes brisk and without bruits bilaterally. Pulmonary/Chest: Effort normal and breath sounds normal. No respiratory distress. No wheezes. No rales. Breast Examination: Bilateral breast symmetrical and smooth without masses. Free from discoloration, thickening of the skin, and prominent pores. Nipples without discharge,asymmetry, ulcerations, rashes, and inversions bilaterally. Breasts free from dimpling and retractions. Tail of M[place] palpatedbilaterally and free from axillary lymphadenopathy. Abdominal: Soft. Bowel sounds are normal. No distension and no mass. There is no hepatosplenomegaly. There is no tenderness. Pelvic Examination: There is no rash, tenderness, or lesion on the right labia. There is no rash, tenderness or lesion on the left labia. Vagina with normal rugae.Uterus normal size, shape, and consistency; non tender to compression. Cervix exhibits no motion tenderness, no discharge, and no friability. Right adnexum displays no mass, no tenderness and no fullness. Left adnexum displays no mass, no tenderness and no fullness. Pap smear obtained. Musculoskeletal: Normal range of motion. No edema, tenderness or deformity. Strength 5/5 with flexion and extension of extremities x4. Lymphadenopathy: No cervical adenopathy. Neurological: Alert and oriented to person, place, and time.Normal reflexes. Coordination normal. Skin: Skin is warm and dry. No rash noted. No erythema. No pallor. Psychiatric: Normal mood and affect. Behavior is normal. Judgment and thought content normal. PHQ-2 negative. Assessment and Plan: 1. Well female exam with routine gynecological exam - CBC - Comprehensive metabolic panel - Pap Smear - Encouraged a healthy diet. - Encouraged regular exercise. 2. Sudden onset unilateral headache - CBC - Comprehensive metabolic panel - TSH - Will call and schedule her MRI. - Will notify of blood work results. - Continue PRN Imitrex. 3. Encounter for Papanicolaou smear for cervical cancer screening - Pap Smear 4. Need for Tdap vaccination - Tdap vaccine greater than or equal to 7 years old IM - VIS provided in AVS. Nica received counseling on the following healthy behaviors: continue current healthy lifestyle patterns Patient given educational materials on: Tdap vaccinations Discussed use, benefit, and side effects of prescribed medications. Barriers to medication compliance addressed. All patient questions answered. Pt voiced understanding. Follow Up: Follow up for follow up after MRI. Orders Placed This Encounter Procedures Tdap vaccine greater than or equal to 7 years old IM CBC Standing Status: Future Number of Occurrences: 1 Standing Expiration Date: 01/31/2024 Comprehensive metabolic panel Standing Status: Future Number of Occurrences: 1 Standing Expiration Date: 01/31/2024 TSH Standing Status: Future Number of Occurrences: 1 Standing Expiration Date: 01/31/2024 BREANNA Loaiza CNP 02/02/2023 9:00 AM * Jaylene Tyler MA - 02/02/2023 8:40 AM EDT After obtaining consent, and per orders of Yue LIN, injection of 0.5ml tdap given in left deltoid by Jaylene Tyler. Patient instructed to report any adverse reaction immediately. documented in this [facility]07-10-2023 History of Present illness Narrative* BREANNA Loaiza CNP - 01/05/2023 7:40 AM EDT Images from the original note were not included. Patient Nica Oconnell 22 y.o. @GENDER@, presents today with Chief Complaint Patient presents with Headache Health Maintenance Hep C--declines, HIV--declines, Pap--has never had, HPV--declines, COVID--declines . SONIA - Galile[place] presents today with concerns regarding headaches. Points to her left baptist when describing the location of her headaches. Symptoms started suddenly about 1 month ago. Denies headaches waking her from sleep. The headaches can last all day and have made her feel dizzy. Has also escalated to the point of feeling nauseated and then vomiting. Do the headaches last more than 4 hours? Yes Unilateral in location? Yes Do the headaches make them feel sick to their stomach or cause emesis? Yes Are they more sensitive to light, sounds, smells, or touch when they have a headache? Yes Have they ever had changes in their vision before or during a headache? {Yes Do they ever miss activities or change their plans because of the headaches? Yes Do they take OTC or prescribed medications for their headaches? Has taken Tylenol with no improvement How many headaches per month? 4 Do they experience an aura? No Any unilateral limb numbness, tingling, weakness, speech difficulty, ataxia, or seizures symptoms? No No past medical history on file. No past surgical history on file. Family History Problem Relation Name Age of Onset No Known Problems Mother No Known Problems Father Social History Socioeconomic History Marital status: Single Spouse name: Not on file Number of children: Not on file Years of education: Not on file Highest education level: Not on file Occupational History Not on file Tobacco Use Smoking status: Never Smokeless tobacco: Never Substance and Sexual Activity Alcohol use: Yes Drug use: Never Sexual activity: Not on file Other Topics Concern Not on file Social History Narrative Not on file Social Determinants of Health Financial Resource Strain: Not on file Food Insecurity: Not on file Transportation Needs: Not on file Physical Activity: Not on file Stress: Not on file Social Connections: Not on file Intimate Partner Violence: Not on file Housing Stability: Not on file Health Maintenance Topic Date Due Pap Smear Never done Influenza Vaccine (1) 02/27/2023 HPV Vaccines (1 - 2-dose series) 01/03/2024 (Originally 2011) HIV Screening 01/03/2024 (Originally 2000) Hepatitis C Screening 01/03/2024 (Originally 2018) COVID-19 Vaccine (1) 01/03/2024 (Originally 2000) DTaP/Tdap/Td Vaccines (7 - Td or Tdap) 2023 Depression Screening 01/03/2024 Zoster Vaccines (1 of 2) 2050 HIB Vaccines Completed Hepatitis B Vaccines Completed IPV Vaccines Completed MMR Vaccines Completed Varicella Vaccines Completed Meningococcal Vaccine Completed Pneumococcal Vaccine: Pediatrics (0 to 5 Years) and At-Risk Patients (6 to 64 Years) Completed Hepatitis A Vaccines Aged Out Rotavirus Vaccines Aged Out No Known Allergies Review of Systems Constitutional: Negative for chills and fever. Respiratory: Negative for shortness of breath. Cardiovascular: Negative for chest pain. Gastrointestinal: Positive for nausea and vomiting. Musculoskeletal: Negative for gait problem. Neurological: Positive for dizziness and headaches. Negative for speech difficulty. Psychiatric/Behavioral: Negative for agitation and confusion. BP 118/60 Pulse 75 Ht 5' 7 (1.702 m) Wt 129 lb (58.5 kg) SpO2 98% BMI 20.20 kg/m Physical Exam Constitutional: General: She is not in acute distress. Appearance: She is not ill-appearing or diaphoretic. HENT: Head: Normocephalic and atraumatic. Eyes: General: No visual field deficit. Extraocular Movements: Extraocular movements intact. Pupils: Pupils are equal, round, and reactive to light. Neck: Vascular: No carotid bruit. Cardiovascular: Rate and Rhythm: Normal rate and regular rhythm. Heart sounds: Normal heart sounds. No murmur heard. No friction rub. Pulmonary: Effort: Pulmonary effort is normal. Breath sounds: Normal breath sounds. No wheezing, rhonchi or rales. Musculoskeletal: Cervical back: Neck supple. Lymphadenopathy: Cervical: No cervical adenopathy. Skin: General: Skin is warm and dry. Coloration: Skin is not pale. Findings: No erythema. Neurological: Mental Status: She is alert and oriented to person, place, and time. Cranial Nerves: No dysarthria or facial asymmetry. Sensory: Sensation is intact. Motor: Motor function is intact. No weakness, tremor or abnormal muscle tone. Coordination: Coordination is intact. Coordination normal. Jrmcgw-Pqzi-Oegyrl Test and Heel to ShinTest normal. Gait: Gait is intact. Psychiatric: Mood and Affect: Mood normal. Behavior: Behavior normal. Thought Content: Thought content normal. Judgment: Judgment normal. Assessment and Plan: 1. Sudden onset unilateral headache - SUMAtriptan (Imitrex) 25 MG tablet; Take 1 tablet (25 mg) by mouth Once as needed for migraine for up to 30 doses. May repeat dose once in 2 hours if no relief. Do not exceed 2 doses in 24 hours., Starting 01/05/2023, Normal - MR brain wo contrast - Will start on Imitrex to take when she feels the headaches starting. - Due to sudden onset of headaches and associated dizziness with N/V will order an MRI for further evaluation. - Encouraged to get enough sleep and rest. - Encouraged to eat a healthy diet. Avoid foods high in sugar, caffeine, alcohol, chocolate, aged cheeses, nuts, MSG, and processed foods. Encouraged to not skip meals. - Encouraged to drink a minimum of 6-8 glasses of water each day and informed the patient that too little water is a common migraine trigger. - Encouraged to exercise 3-5 days a week. - Encouraged to do deep breathing or other relaxation exercises to lower stress. 2. Dizziness - MR brain wo contrast 3. Nausea and vomiting, unspecified vomiting type - MR brain wo contrast Discussed use, benefit, and side effects of prescribed medications. Barriers to medication compliance addressed. All patient questions answered. Pt voiced understanding. Follow up in about 3 weeks (around 01/26/2023) for WFE and follow up on headaches. Outpatient Encounter Medications as of 01/05/2023 Medication Sig Dispense Refill norethindrone-ethinyl estradiol (Camron Fe 07/18) 1-20 MG-MCG tablet SUMAtriptan (Imitrex) 25 MG tablet Take 1 tablet (25 mg) by mouth Once as needed for migraine for up to 30 doses. May repeat dose once in 2 hours if no relief. Do not exceed 2 doses in 24 hours. 30 tablet 0 No facility-administered encounter medications on file as of 01/05/2023. BREANNA Loaiza CNP 01/05/2023 8:08 AM documented in this [facility]07-05-2023 Telephone encounter Note* Telephone Encounter - Bozena Abad RN - 12/31/2022 1:31 PM EDT [id number] Misc[facility] Notes* Telephone Encounter - Bozena Parisi RN - 12/31/2022 1:31 PM EDT Duplicate documented in this [facility]07-05-2023 Telephone encounter Note* Telephone Encounter - Bozena Abad RN - 12/31/2022 1:21 PM EDT [id number] Miscellaneous Notes* Telephone Encounter - Bozena Parisi RN - 12/31/2022 1:21 PM EDT Duplicate encounter [id number] Telephone encounter Note* Telephone Encounter - Bozena Abad RN - 12/31/2022 1:15 PM EDT S: The patient is calling the [facility] about headaches B: These started in October: They occur about 3 every other week and will build until it is fairly severe. It is associated with vomiting and it will subside. She finds that eating and drinking will help as well. OTC is not helping. At times, she has blurriness and her glasses make her eyes hurt. No neurological symptoms. R: Appointment made, insurance verified. Suggested she also see her eye doctor as she has not been seen for almost 2 yearss. Reason for Disposition Patient wants to be seen Protocols used: [id number] [id number] Miscellaneous Notes* Telephone Encounter - Bozena Parisi RN - 12/31/2022 1:15 PM EDT S: The patient is calling the [facility] about headaches B: These started in October A: They occur about 3 every other week and will build until it is fairly severe. It is associated with vomiting and it will subside. She finds that eating and drinking will help as well. OTC is not helping. At times, she has blurriness and her glasses make her eyes hurt. No neurological symptoms. R: Appointment made, insurance verified. Suggested she also see her eye doctor as she has not been seen for almost 2 yearss. Reason for Disposition Patient wants to be seen Protocols used: [id number] [facility]* Diagnosis Sudden onset unilateral headache- Primary Dizziness Dizziness and giddiness Nausea and vomiting, unspecified vomiting type documented in this encounter [facility]* Diagnosis Well female exam with routine gynecological exam- Primary Routine gynecological examination Sudden onset unilateral headache Encounter for Papanicolaou smear for cervical cancer screening Need for Tdap vaccination Need for prophylactic vaccination with combined czrykjjazm-qklfwto-daqclvehh (DTP) vaccine documented in this encounter [facility] note* Diagnosis Right ear impacted cerumen- Primary Impacted cerumen documented in this encounter [facility] HealthInstructions* Attachments The following attachments cannot be sent through Care Everywhere. * Sumatriptan, ADULT (Bulgarian) [facility]* Attachments The following attachments cannot be sent through Care Everywhere. * High Fiber Diet (Bulgarian) * Tdap Vaccine (Bulgarian) [facility] note Author Joceline Grande [facility] Note Date/Time January 23, 2025 11:[facility] [address], [address] [place] [address] OFFICE VISIT Date of Service: 01/23/25 MR#: [id number] Acct: [id number] Name: NICA MANCILLA Rep #: [id number] : 2000 Provider: ARNIE Grande Age/Sex: 24/F Location: [facility] [place] [place] Status: Signed Intake Vital Signs 11/29/24 08:28 12/29/24 16:01 01/23/25 11:21 Height 5 ft 6.5 in 5 ft 6.5 in 5 ft 6.5 in Weight: 160 lb 4 oz BMI 25.4 BP 124/76 H Intake Visit Reasons: 24 wk ob Chief Complaint: 24wk OB Automatic Profile Shaper Operator Required: No Is patient in pain?: No Allergies house dust Allergy (Mild, Verified 01/23/25 11:19) sneezes Medications ?Medication ?Instructions ?Recorded ?Confirmed ?Type HEP33-CG 400 mcg-om3 35 mg-dha 25 tab PO 09/22/2412/28 History mg-epa 5 mg-fish oil chewable tablet magnesium glycinate 100 mg (as 100 mg PO QDAY 09/22/24 01/23/25 History glycinate) tablet Last Menstrual Period: 08/09/24 : No PFSH PFSH Medical History Sports physical Social History adopted: No household members: spouse number of children: 0 current occupational status: employed current occupation: [employer] pets and animals: No history of recent travel: No sexually active: Yes Smoking Status: Former smoker Tobacco: How many years used: 4 Smokeless tobacco user: other second hand exposure: No alcohol intake: never substance use type: marijuana and other details: June 2024 well-balanced diet: rarely or never caffeine: No eating out: 1-3 times/week what type of physical activity do you participate in: walking, weight training and other details: 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 OB Visit WANG Calculator Estimated Delivery Date Method Current WG Current Estimate 05/16/25 LMP (Certain) 23w 6d Other Estimates 05/19/25 Ultrasound #1 23w 3d Expected Delivery Route/Plan Labor Preferences- CB/BF classes: [] labor support person: [] labor intervention preferences: [] pain management options preferred: [] cut cord/dad catch: [] : [] PP control planned: [] discussed possible routes of delivery and associated risks: [] special requests: [] Specific Issue/Plans Covid status: [] Flu vaccine: [] Tdap vaccine: [] Rhogam: [] LARC form signed: [] Problem list reviewed and updated with the most current plan of care details and appropriate orders placed. Relevant counseling for the gestational age provided. Continue routine care and follow up unless otherwise noted in visit notes/problem list details Initial Weight: 133 lb Date -?-?-?-?-?-?-?-?-?-?-?-?- EGA Weight BP Urine Prot -?-?-?-?-?-?-?-?-?-?-?-?- Glucose FHR FuHt Pres Dilation -?-?-?-?-?--?-?-?-?-?-?-?- Effaced St Visit Note 10/06/24 -?-?-?-?-?-?-?-?-?-?-?-?- 8w 2d 133 lb 4 oz (+4 oz) 127/78 -?-?-?-?-?-?-?-?-?-?-?-?- 160 -?-?-?-?-?-?-?-?-?-?-?-?- KW- CRL cons wit h dates. declines NIPT 11/03/24 -?-?-?-?-?-?-?-?-?-?-?-?- 12w 2d 135 lb 6 oz (+2 lb 6 oz) 136/80 Negative -?-?-?-?-?-?-?-?-?-?-?-?- Negative 157 -?--?-?-?-?-?-?-?-?-?-?-?- JV- no cramping or spotting. no concerns. declines nipt. 11/29/24 -?-?-?-?-?-?-?-?-?-?-?-?- 16w 0d 142 lb 2 oz (+9 lb 2 oz) 120/76 Negative -?-?-?-?-?-?-?-?-?-?-?-?- Negative 163 -?-?-?-?-?-?-?-?-?-?-?-?- MH-No VB. Feels well. Brief US confirm FHT. 12/29/24 -?-?-?-?-?-?-?-?-?-?-?-?- 20w 2d 149 lb 8 oz (+16 lb 8 oz) 126/86 Negative -?-?-?-?-?-?-?-?-?-?-?-?- Negative 150 -?--?-?-?-?-?-?-?-?-?-?-?- SM- no vb lof go od fm no michael rctx 01/23/25 -?-?-?-?-?-?-?-?-?-?-?-?- 23w 6d 160 lb 4 oz (+27 lb 4 oz) 124/76 Negative -?-?-?-?-?-?-?-?-?-?-?-?- Negative 140 24 -?-?-?-?-?-?-?-?-?-?-?-?- KW- No vb/crampi ng. +fm. glucose and weight gain discussed. ACOG First Trimester First Trimester: Discussed Second Trimester Second Trimester: Signs and Symptoms of Labor, Selecting a care provider, Reproductive Life Planning & Contreception, Care Planning, Depression/Anxiety and Intimate Partner Violence; Discussed Tobacco Cessation Third Trimester Third Trimester: Pain Management Plans, Labor support person(s), Immediate Larc, Signs and Symptoms of Preeclampsia, Infant Feeding No , [place] Education and Family Medical Leave or Disability Forms ROS Const Reports system reviewed and no additional complaints, except as documented Eyes Reports system reviewed and no additional complaints, except as documented ENT Reports system reviewed and no additional complaints, except as documented Card Reports system reviewed and no additional complaints, except as documented Resp Reports system reviewed and no additional complaints, except as documented GI Reports system reviewed and no additional complaints, except as documented, Denies nausea and Denies vomiting Reports system reviewed and no additional complaints, except as documented Musc Reports system reviewed and no additional complaints, except as documented Skin/Breast Reports system reviewed and no additional complaints, except as documented Neuro Yes system reviewed and no additional complaints, except as documented Psych Reports system reviewed and no additional complaints, except as documented Endo Reports system reviewed and no additional complaints, except as documented Heam/Lymph Reports system reviewed and no additional complaints, except as documented Aller/Immun Reports system reviewed and no additional complaints, except as documented Exam Const General: cooperative, healthy appearing and no acute distress Orientation: alert, awake and oriented x3 Neck Neck: normal visual inspection and full ROM Resp Effort & Inspection: normal respiratory effort, able to speak in complete sentences and symmetric chest movement GI Inspection: normal to inspection Palpation: soft and other Other: gravid Skin General: no rashes or lesions noted Neuro General: patient alert, patient awake and patient oriented x3 Cognition: normal cognition Speech: speech normal Gait: normal gait Motor: muscle tone normal throughout Extrem General: normal to inspection and full ROM Psych Appearance: grossly normal Mental Status: mental status grossly normal Mood: congruent mood Affect: normal affect Speech and Movement: speech and movement normal Attitude: cooperative Thought Process: normal Thought Content: normal Judgment: judgment good Results POC Urinalysis 2 Dip (Clinic) Office Urine Glucose Negative Last Edit by Maggie Martin on 01/23/25 11:28 Office Urine Protein Negative Last Edit by Maggie Martin on 01/23/25 11:28 Coding Level of Care Code OB Routine Diagnoses History of marijuana use F12.91 Supervision of high risk in second trimester O.92 Trimester: second trimester 23 weeks gestation of Z3A.23 Weeks of gestation: 23 weeks Assessment and Plan Assessment and Plan (1) History of marijuana use: Status: Acute Comment: daily, quit 06/2024. counseling provided. aware of random drug testing (2) Supervision of high-risk : Status: Acute Qualifiers: Trimester: second trimester Qualified Code(s): O09.92 - Supervision of high risk , unspecified, second trimester Comment: PRR, , WANG 05/16 girl Chip (3) : Status: Acute Qualifiers: Weeks of gestation: 23 weeks Qualified Code(s): Z3A.23 - 23 weeks gestation of Comment: declines NIPT, carrier and AFP, normal anatomy/consistent dates Orders: Orders POC Urinalysis 2 Dip (Clinic) Today O09.92 - Supervision of high risk , unspecified, second trimester, Z3A.23 - 23 weeks gestation of CBC W/Diff, Automated Today O09.92 - Supervision of high risk , unspecified, second trimester, Z3A.23 - 23 weeks gestation of Glucose Challenge Gest 1H 50g Today O09.92 - Supervision of high risk , unspecified, second trimester, Z13.1 - Encounter for screening for diabetes mellitus, Z3A.23 - 23 weeks gestation of Syphilis Antibodies Today O09.92 - Supervision of high risk , unspecified, second trimester, Z3A.23 - 23 weeks gestation of HIV Today O09.92 - Supervision of high risk , unspecified, second trimester, Z3A.23 - 23 weeks gestation of Plan Details Additional Comments: ACOG trimester education reviewed and updated. see problem list details for updated plan management information and see below for orders placed at this visit. GA appropriate handout given. 01/23/25 1141 <Electronically signed by Jocelien moulton CNM> Date _ Joceline Grande CNM Cosigner Signature: Date (if applicable) CC: ~ [facility] Work Phone: Progress note Author Joceline Grande [facility] Note Date/Time March 14, 2025 10:06am [facility] [address], [facility] [address] [place] [address] OFFICE VISIT Date of Service: 03/14/25 MR#: [id number] Acct: [id number] Name: NICA MANCILLA Rep #: [id number] : 2000 Provider: ARNIE Grande Age/Sex: 25/F [place] [facility] [place] Status: Signed Intake Vital Signs 01/23/25 11:21 03/01/25 14:55 03/14/25 09:38 Height 5 ft 6.5 in 5 ft 6.5 in 5 ft 6.5 in Weight: 176 lb 7 oz BMI 28.0 BP 129/81 H Intake Visit Reasons: 32 wk ob Chief Complaint: 32wk OB Automatic Profile Shaper Operator Required: No Is patient in pain?: No Allergies house dust Allergy (Mild, Verified 03/14/25 09:39) sneezes Medications ?Medication ?Instructions ?Recorded ?Confirmed ?Type YHP60-HJ 400 mcg-om3 35 mg-dha 25 tab PO 09/22/2402/27 History mg-epa 5 mg-fish oil chewable tablet magnesium glycinate 100 mg (as 100 mg PO QDAY 09/22/24 03/14/25 History glycinate) tablet famotidine 20 mg tablet (Pepcid) 20 mg PO BID #60 tabs 03/01/25 03/14/25 Rx Last Menstrual Period: 08/09/24 : No PFSH PFSH Medical History Sports physical Social History adopted: No household members: spouse number of children: 0 current occupational status: employed current occupation: [employer] pets and animals: No history of recent travel: No sexually active: Yes Smoking Status: Former smoker Tobacco: How many years used: 4 Smokeless tobacco user: other second hand exposure: No alcohol intake: never substance use type: marijuana and other details: June 2024 well-balanced diet: rarely or never caffeine: No eating out: 1-3 times/week what type of physical activity do you participate in: walking, weight training and other 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 OB Visit WANG Calculator Estimated Delivery Date Method Current WG Current Estimate 05/16/25 LMP (Certain) 31w 0d Other Estimates 05/19/25 Ultrasound #1 30w 4d Expected Delivery Route/Plan Labor Preferences- CB/BF classes: encouraged labor support person: Chip labor intervention preferences: pain management options preferred: epidural cut cord/dad catch: yes : yes PP control planned: discussed discussed possible routes of delivery and associated risks: [] special requests: [] Specific Issue/Plans Covid status: [] Flu vaccine: [] Tdap vaccine: [] Rhogam: na LARC form signed: yes Problem list reviewed and updated with the most current plan of care details and appropriate orders placed. Relevant counseling for the gestational age provided. Continue routine care and follow up unless otherwise noted in visit notes/problem list details Initial Weight: 133 lb Date -?-?-?-?-?-?-?-?-?-?-?-?- EGA Weight BP Urine Prot -?-?-?-?-?-?-?-?-?-?-?-?- Glucose FHR FuHt Pres Dilation -?-?-?-?-?-?-?-?-?-?-?-?- Effaced St Visit Note 10/06/24 -?-?-?-?-?-?-?-?-?-?-?-?- 8w 2d 133 lb 4 oz (+4 oz) 127/78 -?-?-?-?-?-?-?-?-?-?-?-?- 160 -?-?-?-?-?-?-?-?-?-?-?-?- KW- CRL cons wit h dates. declines NIPT 11/03/24 -?-?-?-?-?-?-?-?-?-?-?-?- 12w 2d 135 lb 6 oz (+2 lb 6 oz) 136/80 Negative -?-?-?-?-?-?-?-?-?-?-?-?- Negative 157 -?-?-?-?-?-?-?-?-?-?-?-?- JV- no cramping or spotting. no concerns. declines nipt. 11/29/24 -?-?-?-?-?-?-?-?-?-?-?-?- 16w 0d 142 lb 2 oz (+9 lb 2 oz) 120/76 Negative -?-?-?-?-?-?-?-?-?-?-?-?- Negative 163 -?-?-?-?-?-?-?-?-?-?-?-?- MH-No VB. Feels well. Brief US confirm FHT. 12/29/24 -?-?-?-?-?-?-?-?-?-?-?-?- 20w 2d 149 lb 8 oz (+16 lb 8 oz) 126/86 Negative -?-?-?-?-?-?-?-?-?-?-?-?- Negative 150 -?-?-?-?-?-?-?-?-?-?-?-?- SM- no vb lof go od fm no reulga rctx 01/23/25 -?-?-?-?-?-?-?-?-?-?-?-?- 23w 6d 160 lb 4 oz (+27 lb 4 oz) 124/76 Negative -?-?-?-?-?-?-?-?-?-?-?-?- Negative 140 24 -?-?-?-?-?--?-?-?-?-?-?-?- KW- No vb/crampi ng. +fm. glucose and weight gain discussed. 02/14/25 -?-?-?-?-?-?-?-?-?-?-?-?- 27w 0d 169 lb 3 oz (+36 lb 3 oz) 116/72 Negative -?-?-?-?-?-?-?-?-?-?-?-?- Negative 145 27 -?-?-?-?-?-?-?-?-?-?-?-?- MH-No VB, LOF. G ood FM. Larc. 28 wk labs pending 03/01/25 -?-?-?-?-?-?-?-?-?-?-?-?- 29w 1d 172 lb 4 oz (+39 lb 4 oz) 121/74 Negative -?-?-?-?-?-?-?-?-?-?-?-?- Negative 135 30 -?-?-?-?-?-?-?-?-?-?-?-?- JV- no lof, vagi nal bleeding, or dec fm. indigestion getting worse. pepcid script sent in. 03/14/25 -?-?-?-?-?-?-?-?-?-?-?-?- 31w 0d 176 lb 7 oz (+43 lb 7 oz) 129/81 Negative -?-?-?-?-?-?-?-?-?-?-?-?- Negative 131 31 -?-?-?-?-?-?-?-?-?-?-?-?- KW- no vb/lof/ct x. good fm. Tdap today. declines flu vaccine. ACOG First Trimester First Trimester: Discussed Second Trimester Second Trimester: Signs and Symptoms of Labor, Selecting a care provider, Reproductive Life Planning & Contreception, Care Planning, Depression/Anxiety and Intimate Partner Violence; Discussed Tobacco Cessation Third Trimester Third Trimester: Pain Management Plans, Labor support person(s), Immediate Larc, Signs and Symptoms of Preeclampsia, Infant Feeding No , Education, Family Medical Leave or Disability Forms and Intimate Partner Violence ROS Const Reports system reviewed and no additional complaints, except as documented Eyes Reports system reviewed and no additional complaints, except as documented ENT Reports system reviewed and no additional complaints, except as documented Card Reports system reviewed and no additional complaints, except as documented Resp Reports system reviewed and no additional complaints, except as documented GI Reports system reviewed and no additional complaints, except as documented, Denies nausea and Denies vomiting Reports system reviewed and no additional complaints, except as documented Musc Reports system reviewed and no additional complaints, except as documented Skin/Breast Reports system reviewed and no additional complaints, except as documented Neuro Yes system reviewed and no additional complaints, except as documented Psych Reports system reviewed and no additional complaints, except as documented Endo Reports system reviewed and no additional complaints, except as documented /Lymph Reports system reviewed and no additional complaints, except as documented Aller/Immun Reports system reviewed and no additional complaints, except as documented Exam Const General: cooperative, healthy appearing and no acute distress Orientation: alert, awake and oriented x3 Neck Neck: normal visual inspection and full ROM Resp Effort & Inspection: normal respiratory effort, able to speak in complete sentences and symmetric chest movement GI Inspection: normal to inspection Palpation: soft and other Other: gravid Skin General: no rashes or lesions noted Neuro General: patient alert, patient awake and patient oriented x3 Cognition: normal cognition Speech: speech normal Gait: normal gait Motor: muscle tone normal throughout Extrem General: normal to inspection and full ROM Psych Appearance: grossly normal Mental Status: mental status grossly normal Mood: congruent mood Affect: normal affect Speech and Movement: speech and movement normal Attitude: cooperative Thought Process: normal Thought Content: normal Judgment: judgment good Results POC Urinalysis 2 Dip (Clinic) Office Urine Glucose Negative Last Edit by Maggie Martin on 03/14/25 09:49 Office Urine Protein Negative Last Edit by Maggie Martin on 03/14/25 09:49 Immunizations Adacel(Tdap Adolesn/Adult)(PF) 2 Lf-(2.5-5-3-5)-5 Lf/0.5 mL IM syringe Performing Provider: Joceline Grande CNM Performing Location: [facility] Administered by: Maggie Martin on 03/14/25 09:55 Dose Route Admin Location Dispensed Lot Number Expiration Date NDC Pencils Washer 0.5 mL IM Left Deltoid 0.5 mL [id number] 02/25/27 55862-689-03 [employer]OF [employer] VIS Given Date VIS Provided VIS Publication Date 03/14/25 Single Vaccine 24 Eligibility Eligibility Date Funding Source Not Applicable Coding Level of Care Code OB Routine Diagnoses History of marijuana use F12.91 Supervision of high risk in second trimester O09.92 Trimester: second trimester 31 weeks gestation of Z3A.31 Weeks of gestation: 31 weeks Assessment and Plan Assessment and Plan (1) History of marijuana use: Status: Acute Comment: daily, quit 06/2024. counseling provided. aware of random drug testing (2) Supervision of high-risk : Status: Acute Qualifiers: Trimester: second trimester Qualified Code(s): O09.92 - Supervision of high risk , unspecified, second trimester Comment: PRR, , WANG 05/16 girl Chip (3) : Status: Acute Qualifiers: Weeks of gestation: 31 weeks Qualified Code(s): Z3A.31 - 31 weeks gestation of Comment: declines NIPT, carrier and AFP, normal anatomy/consistent dates Orders: Orders POC Urinalysis 2 Dip (Clinic) Today Tdap Immunization Today Z23 - Encounter for immunization Plan Details Additional Comments: ACOG trimester education reviewed and updated. see problem list details for updated plan management information and see below for orders placed at this visit. GA appropriate handout given. 03/14/25 1006 <Electronically signed by Joceline moulton CNM> Date _ Joceline Grande CNM Cosigner Signature: Date (if applicable) CC: ~ [facility] Work Phone: Progress note Author Maribel Chew [facility] Note Date/Time March 29, 2025 10 :52am [facility] [address] [place] [address], [address] [place] [address] OFFICE VISIT Date of Service: 03/29/25 MR#: [id number] Acct: [id number] Name: NICA MANCILLA Rep #: [id number] : 2000 Provider: Dr. Zoë Martínez DO Age/Sex: 25/F Location: [facility] [place], [place] Status: Signed Intake Vital Signs 01/23/25 11:21 03/14/25 09:38 03/29/25 10:15 Height 5 ft 6.5 in 5 ft 6.5 in 5 ft 6.5 in Weight: 176 lb 7 oz 177 lb 4 oz BMI 28.0 28.1 BP 129/81 H 132/79 H Intake Visit Reasons: 33wk1d ob Automatic Profile Shaper Operator Required: No Is patient in pain?: No Allergies house dust Allergy (Mild, Verified 03/29/25 10:15) sneezes Medications ?Medication ?Instructions ?Recorded ?Confirmed ?Type KHO29-LU 400 mcg-om3 35 mg-dha 25 tab PO 09/22/2407/23 History mg-epa 5 mg-fish oil chewable tablet magnesium glycinate 100 mg (as 100 mg PO QDAY 09/22/24 03/29/25 History glycinate) tablet famotidine 20 mg tablet (Pepcid) 20 mg PO BID #60 tabs 03/01/25 03/29/25 Rx Last Menstrual Period: 08/09/24 Zika: Zika virus screening: Negative : No Have you fallen in the past year?: No PFSH PFSH Medical History Sports physical Social History adopted: No household members: spouse number of children: 0 current occupational status: employed current occupation: [employer] pets and animals: No history of recent travel: No sexually active: Yes Smoking Status: Former smoker Tobacco: How many years used: 4 Smokeless tobacco user: other second hand exposure: No alcohol intake: never substance use type: marijuana and other details: June 2024 well-balanced diet: rarely or never caffeine: No eating out: 1-3 times/week what type of physical activity do you participate in: walking, weight training and other details: 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 frequency: 5-6 times per week duration: > 90 minutes/day carmen/jain: Rastafari seatbelt use: always do you feel safe at home: Yes additional social history: Chip [employer] History 1 Elective abortions Hx Para 0 Spontaneous abortions Hx # Term Pregnancies Ectopic pregnancies Hx # Pregnancies Multiple births # of living children 0 HPI 33wk1d ob Details: NICA MANCILLA is a 25 year old who presents for routine OB visit. OB Visit WANG Calculator Estimated Delivery Date Method Current WG Current Estimate 05/16/25 LMP (Certain) 33w 1d Other Estimates 05/19/25 Ultrasound #1 32w 5d Expected Delivery Route/Plan Labor Preferences- CB/BF classes: encouraged labor support person: Chip labor intervention preferences: pain management options preferred: epidural cut cord/dad catch: yes : yes PP control planned: discussed discussed possible routes of delivery and associated risks: [] special requests: [] Specific Issue/Plans Covid status: [] Flu vaccine: [] Tdap vaccine: [] Rhogam: na LARC form signed: yes Problem list reviewed and updated with the most current plan of care details and appropriate orders placed. Relevant counseling for the gestational age provided. Continue routine care and follow up unless otherwise noted in visit notes/problem list details Initial Weight: 133 lb Date -?-?-?-?-?-?-?-?-?-?-?-?- EGA Weight BP Urine Prot -?-?-?-?-?-?-?-?-?-?-?-?- Glucose FHR FuHt Pres Dilation -?-?-?-?-?-?-?-?-?-?-?-?- Effaced St Visit Note 10/06/24 -?-?-?-?-?-?-?-?-?-?-?-?- 8w 2d 133 lb 4 oz (+4 oz) 127/78 -?-?-?-?-?-?-?-?-?-?-?-?- 160 -?-?-?-?-?-?-?-?-?-?-?-?- KW- CRL cons wit h dates. declines NIPT 11/03/24 -?-?-?-?-?-?-?-?-?-?-?-?- 12w 2d 135 lb 6 oz (+2 lb 6 oz) 136/80 Negative -?-?-?-?-?-?-?-?-?-?-?-?- Negative 157 -?-?-?-?-?-?-?-?-?-?-?-?- JV- no cramping or spotting. no concerns. declines nipt. 11/29/24 -?-?-?-?-?-?-?-?-?-?-?-?- 16w 0d 142 lb 2 oz (+9 lb 2 oz) 120/76 Negative -?-?-?-?-?-?-?-?-?-?-?-?- Negative 163 -?-?-?-?-?-?-?-?-?-?-?-?- MH-No VB. Feels well. Brief US confirm FHT. 12/29/24 -?-?-?-?-?-?-?-?-?-?-?-?- 20w 2d 149 lb 8 oz (+16 lb 8 oz) 126/86 Negative -?-?-?-?-?-?-?-?-?-?-?-?- Negative 150 -?-?-?-?-?-?-?-?-?-?-?-?- SM- no vb lof go od fm no reulga rctx 01/23/25 -?-?-?-?-?-?-?-?-?-?-?-?- 23w 6d 160 lb 4 oz (+27 lb 4 oz) 124/76 Negative -?-?-?-?-?-?-?-?-?-?-?-?- Negative 140 24 -?-?-?-?-?-?-?-?-?-?-?-?- KW- No vb/crampi ng. +fm. glucose and weight gain discussed. 02/14/25 -?-?-?-?-?-?-?-?-?-?-?-?- 27w 0d 169 lb 3 oz (+36 lb 3 oz) 116/72 Negative -?-?-?-?-?-?-?-?-?-?-?-?- Negative 145 27 -?-?-?-?-?-?-?-?-?-?-?-?- MH-No VB, LOF. G ood FM. Larc. 28 wk labs pending 03/01/25 -?-?-?-?-?-?-?-?-?-?-?-?- 29w 1d 172 lb 4 oz (+39 lb 4 oz) 121/74 Negative -?-?-?-?-?-?-?-?-?-?-?-?- Negative 135 30 -?-?-?-?-?-?-?-?-?-?-?-?- JV- no lof, vagi nal bleeding, or dec fm. indigestion getting worse. pepcid script sent in. 03/14/25 -?-?-?-?-?-?-?-?-?-?-?-?- 31w 0d 176 lb 7 oz (+43 lb 7 oz) 129/81 Negative -?-?-?-?--?-?-?-?-?-?-?-?- Negative 131 31 -?-?-?-?-?-?-?-?-?-?-?-?- KW- no vb/lof/ct x. good fm. Tdap today. declines flu vaccine. 03/29/25 -?-?-?-?-?-?-?-?-?-?-?--?- 33w 1d 177 lb 4 oz (+44 lb 4 oz) 132/79 Negative -?-?-?-?-?-?-?-?-?-?-?-?- Negative 130 32 Cephalic -?-?-?-?-?-?-?-?-?-?-?--?- JV- no lof, vagi nal bleeding, or dec fm. flu shot today. ACOG First Trimester First Trimester: Discussed Second Trimester Second Trimester: Signs and Symptoms of Labor, Selecting a care provider, Reproductive Life Planning & Contreception, Care Planning, Depression/Anxiety and Intimate Partner Violence; Discussed Tobacco Cessation Third Trimester Third Trimester: Pain Management Plans, Labor support person(s), Immediate Larc, Signs and Symptoms of Preeclampsia, Feeding No , [place] Education, Family Medical Leave or Disability Forms and Intimate Partner Violence Results POC Urinalysis 2 Dip (Clinic) Office Urine Glucose Negative Last Edit by Jennifer Pearl on 03/29/25 10:23 Office Urine Protein Negative Last Edit by Jennifer Pearl on 03/29/25 10:23 Immunizations Flucelvax [id number] (PF) 45 mcg (15 mcg x 3)/0.5 mL IM syringe Performing Provider: Maribel Martínez DO Performing Location: [facility] Administered by: Jennifer Pearl on 03/29/25 10:54 Dose Route Admin Location Dispensed Lot Number Expiration Date Pack age NDC NDC Pencils Washer 0.5 mL IM Left Arm (SQ) 0.5 mL [id number] 11/05/25 53842-712-53 [id number] [employer] VIS Given Date VIS Provided VIS Publication Date 03/29/25 Single Vaccine 24 Eligibility Eligibility Date Funding Source Not Applicable Coding Level of Care Code OB Routine Diagnoses History of marijuana use F12.91 Supervision of high risk in second trimester O09.92 Trimester: second trimester 31 weeks gestation of Z3A.31 Weeks of gestation: 31 weeks Assessment and Plan Assessment and Plan (1) History of marijuana use: Status: Acute Comment: daily, quit 06/2024. counseling provided. aware of random drug testing (2) Supervision of high-risk : Status: Acute Qualifiers: Trimester: second trimester Qualified Code(s): O09.92 - Supervision of high risk , unspecified, second trimester Comment: PRR, , WANG 05/16 girl Chip (3) : Status: Acute Qualifiers: Weeks of gestation: 31 weeks Qualified Code(s): Z3A.31 - 31 weeks gestation of Comment: declines NIPT, carrier and AFP, normal anatomy/consistent dates Orders: Orders POC Urinalysis 2 Dip (Clinic) Today Influenza Immunization Today Z23 - Encounter for immunization Clinical Quality Measures Falls Risk Screening/Assistive Devices Have you fallen in the past year?: No 03/29/25 1651 <Electronically signed by Maribel Townsend DO> Date _ Maribel Martínez DO Cosigner Signature: Date (if applicable) CC: ~ [facility] Work Phone: Progress note Author Lovely Arguello [facility] Note Date/Time April 11, 2025 1 1:30am [facility] [address] [place] [address], [place] [address] OFFICE VISIT Date of Service: 04/11/25 MR#: [id number] Acct: [id number] Name: NICA MANCILLA Rep #: [id number] : 2000 Provider: Dr. Luigi Arguello MD Age/Sex: 25/F Location: [facility] [place], [place] Status: Signed Intake Vital Signs 01/23/25 11:21 03/29/25 10:15 04/11/25 10:53 Height 5 ft 6.5 in 5 ft 6.5 in 5 ft 6.5 in Weight: 179 lb 8 oz BMI 28.5 BP 115/75 Intake Visit Reasons: 35wk ob Automatic Profile Shaper Operator Required: No Is patient in pain?: No Allergies house dust Allergy (Mild, Verified 04/11/25 10:53) sneezes Medications ?Medication ?Instructions ?Recorded ?Confirmed ?Type AFN38-GA 400 mcg-om3 35 mg-dha 25 tab PO 09/22/2403/29 History mg-epa 5 mg-fish oil chewable tablet magnesium glycinate 100 mg (as 100 mg PO QDAY 09/22/24 04/11/25 History glycinate) tablet famotidine 20 mg tablet (Pepcid) 20 mg PO BID #60 tabs 03/01/25 04/11/25 Rx Last Menstrual Period: 08/09/24 Zika: Zika virus screening: Negative : No PFSH PFSH Medical History Sports physical Social History adopted: No household members: spouse number of children: 0 current occupational status: employed current occupation: [employer] pets and animals: No history of recent travel: No sexually active: Yes Smoking Status: Former smoker Tobacco: How many years used: 4 Smokeless tobacco user: other second hand exposure: No alcohol intake: never substance use type: marijuana and other details: June 2024 well-balanced diet: rarely or never caffeine: No eating out: 1-3 times/week what type of physical activity do you participate in: walking, weight training and other details: 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 frequency: 5-6 times per week duration: > 90 minutes/day carmen/jain: Rastafari seatbelt use: always do you feel safe at home: Yes additional social history: Chip [employer] History 1 Elective abortions Hx Para 0 Spontaneous abortions Hx # Term Pregnancies Ectopic pregnancies Hx # Pregnancies Multiple births # of living children 0 HPI 35wk ob Details: NICA MANCILLA is a 25 year old who presents for routine OB visit. OB Visit WANG Calculator Estimated Delivery Date Method Current WG Current Estimate 05/16/25 LMP (Certain) 35w 0d Other Estimates 05/19/25 Ultrasound #1 34w 4d Expected Delivery Route/Plan Labor Preferences- CB/BF classes: encouraged labor support person: Chip labor intervention preferences: pain management options preferred: epidural cut cord/dad catch: yes : yes PP control planned: discussed discussed possible routes of delivery and associated risks: [] special requests: [] Specific Issue/Plans Covid status: [] Flu vaccine: done Tdap vaccine: given Rhogam: na LARC form signed: yes movement and labor precautions reviewed. Problem list reviewed and updated with the most current plan of care details and appropriate orders placed. Relevant counseling for the gestational age provided. Continue routine care and follow up unless otherwise noted in visit notes/problem list details Initial Weight: 133 lb Date -?-?-?-?-?-?-?-?-?-?-?-?- EGA Weight BP Urine Prot -?-?-?-?-?-?-?-?-?-?-?-?- Glucose FHR FuHt Pres Dilation -?-?-?-?-?-?-?-?-?-?-?-?- Effaced St Visit Note 10/06/24 -?-?-?-?-?-?-?-?-?-?-?-?- 8w 2d 133 lb 4 oz (+4 oz) 127/78 -?-?-?-?-?-?-?-?-?-?-?-?- 160 -?-?-?-?-?-?-?-?-?-?-?-?- KW- CRL cons wit h dates. declines NIPT 11/03/24 -?-?-?-?--?-?-?-?-?-?-?-?- 12w 2d 135 lb 6 oz (+2 lb 6 oz) 136/80 Negative -?-?-?-?-?-?-?-?-?-?-?-?- Negative 157 -?-?-?-?-?-?-?-?-?-?-?-?- JV- no cramping or spotting. no concerns. declines nipt. 11/29/24 -?-?-?-?-?-?-?-?-?-?-?-?- 16w 0d 142 lb 2 oz (+9 lb 2 oz) 120/76 Negative -?-?-?-?-?-?-?-?-?-?-?-?- Negative 163 -?-?-?-?-?-?-?-?-?-?-?-?- MH-No VB. Feels well. Brief US confirm FHT. 12/29/24 -?-?-?-?-?--?-?-?-?-?-?-?- 20w 2d 149 lb 8 oz (+16 lb 8 oz) 126/86 Negative -?-?-?-?-?-?-?-?-?-?-?-?- Negative 150 -?-?-?-?-?-?-?-?-?-?-?-?- SM- no vb lof go od fm no reulga rctx 01/23/25 -?-?-?-?-?-?-?-?-?-?-?-?- 23w 6d 160 lb 4 oz (+27 lb 4 oz) 124/76 Negative -?-?-?-?-?-?-?-?-?-?-?-?- Negative 140 24 -?-?-?-?-?-?-?-?-?-?-?-?- KW- No vb/crasangeeta ng. +fm. glucose and weight gain discussed. 02/14/25 -?-?-?-?-?-?--?-?-?-?-?-?- 27w 0d 169 lb 3 oz (+36 lb 3 oz) 116/72 Negative -?-?-?-?-?-?-?-?-?-?-?-?- Negative 145 27 -?-?-?-?-?-?-?-?-?-?-?-?- MH-No VB, LOF. G ood FM. Larc. 28 wk labs pending 03/01/25 -?-?-?-?-?-?-?-?-?-?-?-?- 29w 1d 172 lb 4 oz (+39 lb 4 oz) 121/74 Negative -?-?-?-?-?-?-?-?-?-?-?-?- Negative 135 30 -?-?-?-?-?-?-?-?-?-?-?-?- JV- no lof, vagi nal bleeding, or dec fm. indigestion getting worse. pepcid script sent in. 03/14/25 -?-?-?-?-?-?-?-?-?-?-?-?- 31w 0d 176 lb 7 oz (+43 lb 7 oz) 129/81 Negative -?-?-?-?-?-?-?-?-?-?-?-?- Negative 131 31 -?-?-?-?-?-?-?-?-?-?-?-?- KW- no vb/lof/ct x. good fm. Tdap today. declines flu vaccine. 03/29/25 -?-?-?-?-?-?-?-?-?-?-?-?- 33w 1d 177 lb 4 oz (+44 lb 4 oz) 132/79 Negative -?-?-?-?-?-?-?-?-?-?-?-?- Negative 130 32 Cephalic -?-?-?-?-?-?-?-?-?-?-?-?- JV- no lof, vagi nal bleeding, or dec fm. flu shot today. 04/11/25 -?-?-?-?-?-?-?-?-?-?-?-?- 35w 0d 179 lb 8 oz (+46 lb 8 oz) 115/75 Negative -?-?-?-?-?-?--?-?-?-?-?-?- Negative 130 35 Cephalic -?-?-?-?-?-?-?-?-?-?-?-?- SM- no vb lof go od fm no reuglar ctx ACOG First Trimester First Trimester: Discussed Second Trimester Second Trimester: Signs and Symptoms of Labor, Selecting a care provider, Reproductive Life Planning & Contreception, Care Planning, Depression/Anxiety and Intimate Partner Violence; Discussed Tobacco Cessation Third Trimester Third Trimester: Pain Management Plans, Labor support person(s), Immediate Larc, Signs and Symptoms of Preeclampsia, Infant Feeding No , Education, Family Medical Leave or Disability Forms and Intimate Partner Violence ROS Const Denies fever(s) GI Reports as per HPI and Denies abdominal pain Reports as per HPI, Denies abnormal vaginal bleeding, Denies dysuria and Denies vaginal discharge Exam Const General: healthy appearing, comfortable and no acute distress GI Inspection: normal to inspection Palpation: soft and nontender Results POC Urinalysis 2 Dip (Clinic) Office Urine Glucose Negative Last Edit by Garima Billingsley on 04/11/25 10:59 Office Urine Protein Negative Last Edit by Garima Billingsley on 04/11/25 10:59 Coding Level of Care Code OB Routine Diagnoses History of marijuana use F12.91 Supervision of high risk in second trimester O09.92 Trimester: second trimester 35 weeks gestation of Z3A.35 Weeks of gestation: 35 weeks Assessment and Plan Assessment and Plan (1) History of marijuana use: Status: Acute Comment: daily, quit 06/2024. counseling provided. aware of random drug testing (2) Supervision of high-risk : Status: Acute Qualifiers: Trimester: second trimester Qualified Code(s): O09.92 - Supervision of high risk , unspecified, second trimester Comment: PRR, , WANG 05/16 girl Chip (3) : Status: Acute Qualifiers: Weeks of gestation: 35 weeks Qualified Code(s): Z3A.35 - 35 weeks gestation of Comment: declines NIPT, carrier and AFP, normal anatomy/consistent dates Orders: Orders POC Urinalysis 2 Dip (Clinic) Today 04/11/25 1130 <Electronically signed by Lovely mcgee MD> Date _ Lovely Arguello MD Cosigner Signature: Date (if applicable) CC: ~ [facility] Work Phone: Progress note Author Garima Christensen [facility] Note Date/Time April 18, 2025 1 0:52am [facility] [address], [address] [place] [address] OFFICE VISIT Date of Service: 04/18/25 MR#: [id number] Acct: [id number] Name: NICA MANCILLA Rep #: [id number] : 2000 Provider: LACIE Christensen Age/Sex: 25/F Location: [facility] [place], [place] Status: Signed Intake Vital Signs 03/14/25 09:38 04/11/25 10:53 04/18/25 09:35 Height 5 ft 6.5 in 5 ft 6.5 in 5 ft 6.5 in Weight: 182 lb 6 oz BMI 29.0 BP 122/79 H Intake Visit Reasons: 36wk ob Automatic Profile Shaper Operator Required: No Is patient in pain?: No Allergies house dust Allergy (Mild, Verified 04/18/25 09:35) sneezes Medications ?Medication ?Instructions ?Recorded ?Confirmed ?Type GNP32-HK 400 mcg-om3 35 mg-dha 25 tab PO 09/22/2403/30 History mg-epa 5 mg-fish oil chewable tablet magnesium glycinate 100 mg (as 100 mg PO QDAY 09/22/24 04/18/25 History glycinate) tablet famotidine 20 mg tablet (Pepcid) 20 mg PO BID #60 tabs 03/01/25 04/18/25 Rx Last Menstrual Period: 08/09/24 Zika: Zika virus screening: Negative : No PFSH PFSH Medical History Sports physical Social History adopted: No household members: spouse number of children: 0 current occupational status: employed current occupation: [employer] pets and animals: No history of recent travel: No sexually active: Yes Smoking Status: Former smoker Tobacco: How many years used: 4 Smokeless tobacco user: other second hand exposure: No alcohol intake: never substance use type: marijuana and other details: June 2024 well-balanced diet: rarely or never caffeine: No eating out: 1-3 times/week what type of physical activity do you participate in: walking, weight training and other 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 OB Visit WANG Calculator Estimated Delivery Date Method Current WG Current Estimate 05/16/25 LMP (Certain) 36w 0d Other Estimates 05/19/25 Ultrasound #1 35w 4d Expected Delivery Route/Plan Labor Preferences- CB/BF classes: encouraged labor support person: Chip labor intervention preferences: pain management options preferred: epidural cut cord/dad catch: yes : yes PP control planned: discussed discussed possible routes of delivery and associated risks: [] special requests: [] Specific Issue/Plans Covid status: [] Flu vaccine: done Tdap vaccine: given Rhogam: na LARC form signed: yes movement and labor precautions reviewed. Problem list reviewed and updated with the most current plan of care details and appropriate orders placed. Relevant counseling for the gestational age provided. Continue routine care and follow up unless otherwise noted in visit notes/problem list details Initial Weight: 133 lb Date -?-?-?-?-?-?-?-?-?-?-?-?- EGA Weight BP Urine Prot -?-?-?-?-?-?-?-?-?-?-?-?- Glucose FHR FuHt Pres Dilation -?-?-?-?-?-?-?-?-?-?-?-?- Effaced St Visit Note 10/06/24 -?-?-?-?-?-?-?-?-?-?-?-?- 8w 2d 133 lb 4 oz (+4 oz) 127/78 -?-?-?-?-?-?-?-?-?-?-?-?- 160 -?-?-?-?-?-?-?-?-?-?-?-?- KW- CRL cons wit h dates. declines NIPT 11/03/24 -?-?--?-?-?-?-?-?-?-?-?-?- 12w 2d 135 lb 6 oz (+2 lb 6 oz) 136/80 Negative -?-?-?-?-?-?-?-?-?-?-?-?- Negative 157 -?-?-?-?-?-?-?-?-?-?-?-?- JV- no cramping or spotting. no concerns. declines nipt. 11/29/24 -?-?-?-?-?-?-?-?-?-?-?-?- 16w 0d 142 lb 2 oz (+9 lb 2 oz) 120/76 Negative -?-?-?-?-?-?-?-?-?-?-?-?- Negative 163 -?-?-?-?-?-?-?-?-?-?-?-?- MH-No VB. Feels well. Brief US confirm FHT. 12/29/24 -?-?-?--?-?-?-?-?-?-?-?-?- 20w 2d 149 lb 8 oz (+16 lb 8 oz) 126/86 Negative -?-?-?-?-?-?-?-?-?-?-?-?- Negative 150 -?-?-?-?-?-?-?-?-?-?-?-?- SM- no vb lof go od fm no reulga rctx 01/23/25 -?-?-?-?-?-?-?-?-?-?-?-?- 23w 6d 160 lb 4 oz (+27 lb 4 oz) 124/76 Negative -?-?-?-?-?-?-?-?-?-?-?-?- Negative 140 24 -?-?-?-?-?-?-?-?-?-?-?-?- KW- No vb/crampi ng. +fm. glucose and weight gain discussed. 02/14/25 -?-?-?-?--?-?-?-?-?-?-?-?- 27w 0d 169 lb 3 oz (+36 lb 3 oz) 116/72 Negative -?-?-?-?-?-?-?-?-?-?-?-?- Negative 145 27 -?-?-?-?-?-?-?-?-?-?-?-?- MH-No VB, LOF. G ood FM. Larc. 28 wk labs pending 03/01/25 -?-?-?-?-?-?-?-?-?-?-?-?- 29w 1d 172 lb 4 oz (+39 lb 4 oz) 121/74 Negative -?-?-?-?-?-?-?-?-?-?-?-?- Negative 135 30 -?-?-?-?-?-?-?-?-?-?-?-?- JV- no lof, vagi nal bleeding, or dec fm. indigestion getting worse. mirian chicas ript sent in. 03/14/25 -?-?-?-?-?-?-?-?-?-?-?-?- 31w 0d 176 lb 7 oz (+43 lb 7 oz) 129/81 Negative -?-?-?-?-?-?-?-?-?-?-?-?- Negative 131 31 -?-?-?-?-?-?-?-?-?-?-?-?- KW- no vb/lof/ct x. good fm. Tdap today. declines flu vaccine. 03/29/25 -?-?-?-?-?-?-?-?-?-?-?-?- 33w 1d 177 lb 4 oz (+44 lb 4 oz) 132/79 Negative -?-?-?-?-?-?-?-?-?-?-?-?- Negative 130 32 Cephalic -?-?-?-?-?-?-?-?-?-?-?-?- JV- no lof, vagi nal bleeding, or dec fm. flu shot today. 04/11/25 -?-?-?-?-?-?-?-?-?-?-?-?- 35w 0d 179 lb 8 oz (+46 lb 8 oz) 115/75 Negative -?-?-?-?--?-?-?-?-?-?-?-?- Negative 130 35 Cephalic -?-?-?-?-?-?-?-?-?-?-?-?- SM- no vb lof go od fm no reuglar ctx 04/18/25 -?-?-?-?-?-?-?-?-?-?-?-?- 36w 0d 182 lb 6 oz (+49 lb 6 oz) 122/79 Negative -?-?-?-?-?-?-?-?-?-?-?-?- Negative 145 36 Cephalic 0 -?-?-?-?-?-?-?-?-?-?-?-?- 40 -3 MH-No VB, LOF, reg CTX. GBS done [facility] First Trimester First Trimester: Discussed Second Trimester Second Trimester: Signs and Symptoms of Labor, Selecting a care provider, Reproductive Life Planning & Contreception, Care Planning, Depression/Anxiety and Intimate Partner Violence; Discussed Tobacco Cessation Third Trimester Third Trimester: Pain Management Plans, Labor support person(s), Immediate Larc, Signs and Symptoms of Preeclampsia, Infant Feeding No , [place] Education, Family Medical Leave or Disability Forms and Intimate Partner Violence ROS Const Reports system reviewed and no additional complaints, except as documented GI Denies abdominal pain, Denies nausea and Denies vomiting Exam Const General: cooperative Nutritional Appearance: well nourished GI Palpation: soft, nontender and other (gravid) Results POC Urinalysis 2 Dip (Clinic) Office Urine Glucose Negative Last Edit by Maile Martell on 04/18/25 09 :39 Office Urine Protein Negative Last Edit by Maile Martell on 04/18/25 09 :39 Coding Level of Care Code OB Routine Diagnoses Supervision of high risk in second trimester O09.92 Trimester: second trimester 36 weeks gestation of Z3A.36 Weeks of gestation: 36 weeks History of marijuana use F12.91 Assessment and Plan Assessment and Plan (1) Supervision of high-risk : Status: Acute Qualifiers: Trimester: second trimester Qualified Code(s): O09.92 - Supervision of high risk , unspecified, second trimester Comment: PRR, , WANG 05/16 girl Chip (2) : Status: Acute Qualifiers: Weeks of gestation: 36 weeks Qualified Code(s): Z3A.36 - 36 weeks gestation of Comment: declines NIPT, carrier and AFP, normal anatomy/consistent dates (3) History of marijuana use: Status: Acute Comment: daily, quit 06/2024. counseling provided. aware of random drug testing Orders: Orders POC Urinalysis 2 Dip (Clinic) Today Culture, Group B Streptococcus Today O09.92 - Supervision of high risk , unspecified, second trimester Plan problem list reviewed and updated for most current plan of care and appropriate orders placed. Relevant counseling for the gestational age appropriate provided and ACOG education checklist updated. Continue routine care and follow up. 04/18/25 0955 <Electronically signed by Gariam moulton [employer] [employer]> Date _ Garima Christensen NP [employer] Cosigner Signature: Date (if applicable) CC: ~ [facility] Work Phone: Reason for referral (narrative)No reason for referral information [facility] Work Phone: Reason for Referral Specialty Diagnoses / Procedures Referred By Keagan carpenter Referred To Contact Radiology Diagnoses Sudden onset unilateral headache Dizziness Nausea and vomiting, unspecified vomiting type Procedures MR brain wo contrast Yue Bingham, SPAGHETTI MACHINE OPERATOR - ACTION FINISHER [address] [place] [address] Referral ID Status Reason Start Date Expiration Date V isits Requested Visits Authorized [id number] Pending Review 01/05/2023 07/04/2023 1 1 Summary Purpose Family History No Family History Records FoundNo Family History Records FoundNo Family History Records Found Advance Directives No Advanced Directives Records FoundNo Advanced Directives Records FoundNo Advanced Directives Records Found Chief Complaint and Reason for Visit Chief Complaint Admit Date [employer] OB LMP 08/09, WANG 05/16October 06 2:30pm Reason for Visit Admit Date History of marijuana use October 06 2:30pm October 06, 2024 2:3 0pm Supervision of high-risk October 06, 2024 2:30pm Chief Complaint Admit Date [employer] OB LMP 08/09, WANG 05/16October 06 2:30pm 12WK OB November 03, 2024 2:56pm 16 wk ob November 29, 2024 8:24a m Reason for Visit Admit Date History of marijuana use October 06 2:30pm October 06, 2024 2:3 0pm Supervision of high-risk October 06, 2024 2:30pm History of marijuana use November 03, 2024 2 :56pm November 03, 2024 2:56pm Supervision of high-risk November 032024 2:56pm History of marijuana use November 29, 2024 8:24am November 29, 2024 8:24a m Supervision of high-risk November 29, 2024 8:24am Chief Complaint Admit Date [employer] OB LMP 08/09, WANG 05/16October 06 2:30pm 12WK OB November 03, 2024 2:56pm 16 wk ob November 29, 2024 8:24a m 20 wk ob December 29, 2024 3:56p m Reason for Visit Admit Date History of marijuana use October 06 2:30pm October 06, 2024 2:3 0pm Supervision of high-risk October 06, 2024 2:30pm History of marijuana use November 03, 2024 2 :56pm November 03, 2024 2:56pm Supervision of high-risk November 032024 2:56pm History of marijuana use November 29, 2024 8:24am November 29, 2024 8:24a m Supervision of high-risk November 29, 2024 8:24am History of marijuana use December 29, 2024 3:56pm December 29, 2024 3:56p m Supervision of high-risk December 29, 2024 3:56pm Chief Complaint Admit Date [employer] OB LMP 08/09, WANG 05/16October 06 2:30pm 12WK OB November 03, 2024 2:56pm 16 wk ob November 29, 2024 8:24a m 20 wk ob December 29, 2024 3:56p m 24 wk ob January 23, 2025 11:1 8am Reason for Visit Admit Date History of marijuana use October 06 2:30pm October 06, 2024 2:3 0pm Supervision of high-risk October 06, 2024 2:30pm History of marijuana use November 03, 2024 2 :56pm November 03, 2024 2:56pm Supervision of high-risk November 032024 2:56pm History of marijuana use November 29, 2024 8:24am November 29, 2024 8:24a m Supervision of high-risk November 29, 2024 8:24am History of marijuana use December 29, 2024 3:56pm December 29, 2024 3:56p m Supervision of high-risk December 29, 2024 3:56pm History of marijuana use January 23, 2025 11:18am January 23, 2025 11:1 8am Supervision of high-risk January 23, 2025 11:18am Chief Complaint Admit Date 12WK OB November 03, 2024 2:56pm 16 wk ob November 29, 2024 8:24a m 20 wk ob December 29, 2024 3:56p m 24 wk ob January 23, 2025 11:1 8am 28 WK OB/GLUCOSE February 14, 2025 12 :47pm Reason for Visit Admit Date History of marijuana use November 03, 2024 2 :56pm November 03, 2024 2:56pm Supervision of high-risk November 032024 2:56pm History of marijuana use November 29, 2024 8:24am November 29, 2024 8:24a m Supervision of high-risk November 29, 2024 8:24am History of marijuana use December 29, 2024 3:56pm December 29, 2024 3:56p m Supervision of high-risk December 29, 2024 3:56pm History of marijuana use January 23, 2025 11:18am January 23, 2025 11:1 8am Supervision of high-risk January 23, 2025 11:18am History of marijuana use February 14 12:47pm February 14, 2025 12 :47pm Supervision of high-risk Augus t 2024 12:47pm Chief Complaint Admit Date 12WK OB November 03, 2024 2:56pm 16 wk ob November 29, 2024 8:24a m 20 wk ob December 29, 2024 3:56p m 24 wk ob January 23, 2025 11:1 8am 28 WK OB/GLUCOSE February 14, 2025 12 :47pm 30 wk ob March 01, 2025 2:44pm Reason for Visit Admit Date History of marijuana use November 03, 2024 2 :56pm November 03, 2024 2:56pm Supervision of high-risk November 032024 2:56pm History of marijuana use November 29, 2024 8:24am November 29, 2024 8:24a m Supervision of high-risk November 29, 2024 8:24am History of marijuana use December 29, 2024 3:56pm December 29, 2024 3:56p m Supervision of high-risk December 29, 2024 3:56pm History of marijuana use January 23, 2025 11:18am January 23, 2025 11:1 8am Supervision of high-risk January 23, 2025 11:18am History of marijuana use February 14 12:47pm February 14, 2025 12 :47pm Supervision of high-risk Augus t 2024 12:47pm History of marijuana use March 01, 2025 2:44pm March 01, 2025 2:44pm Supervision of high-risk Septe [email or web address] 2:44pm Chief Complaint Admit Date 16 wk ob November 29, 2024 8:24a m 20 wk ob December 29, 2024 3:56p m 24 wk ob January 23, 2025 11:1 8am 28 WK OB/GLUCOSE February 14, 2025 12 :47pm 30 wk ob March 01, 2025 2:44pm 31wk ob March 14, 2025 9:34am Reason for Visit Admit Date History of marijuana use November 29, 2024 8:24am November 29, 2024 8:24a m Supervision of high-risk November 29, 2024 8:24am History of marijuana use December 29, 2024 3:56pm December 29, 2024 3:56p m Supervision of high-risk December 29, 2024 3:56pm History of marijuana use January 23, 2025 11:18am January 23, 2025 11:1 8am Supervision of high-risk January 23, 2025 11:18am History of marijuana use February 14 12:47pm February 14, 2025 12 :47pm Supervision of high-risk Augus t 2024 12:47pm History of marijuana use March 01, 2025 2:44pm March 01, 2025 2:44pm Supervision of high-risk [facility] 2024 2:44pm History of marijuana use March 14, 2025 9:34am March 14, 2025 9:34am [facility] 20[facility] 9:34am Chief Complaint Admit Date 20 wk ob December 29, 2024 3:56p m 24 wk ob January 23, 2025 11:1 8am 28 WK OB/GLUCOSE February 14, 2025 12 :47pm 30 wk ob March 01, 2025 2:44pm 31wk ob March 14, 2025 9:34am 33wk1d ob March 29, 2025 10 :07am Reason for Visit Admit Date History of marijuana use December 29, 2024 3:56pm December 29, 2024 3:56p m Supervision of high-risk December 29, 2024 3:56pm History of marijuana use January 23, 2025 11:18am January 23, 2025 11:1 8am Supervision of high-risk January 23, 2025 11:18am History of marijuana use February 14 12:47pm February 14, 2025 12 :47pm Supervision of high-risk Augus t 2024 12:47pm History of marijuana use March 01, 2025 2:44pm March 01, 2025 2:44pm Supervision of high-risk [facility] 2024 2:44pm History of marijuana use March 14, 2025 9:34am March 14, 2025 9:34am Supervision of high-risk [facility] 2024 9:34am History of marijuana use March 29 10:07am March 29, 2025 10 :07am Supervision of high-risk Octob er 2024 10:07am Chief Complaint Admit Date 20 wk ob December 29, 2024 3:56p m 24 wk ob January 23, 2025 11:1 8am 28 WK OB/GLUCOSE February 14, 2025 12 :47pm 30 wk ob March 01, 2025 2:44pm 31wk ob March 14, 2025 9:34am 33wk1d ob March 29, 2025 10 :07am 35wk ob April 11, 2025 1 0:50am 36wk ob April 18, 2025 9 :32am 36wk6d ob April 24, 2025 1 0:54am Reason for Visit Admit Date History of marijuana use December 29, 2024 3:56pm December 29, 2024 3:56p m Supervision of high-risk December 29, 2024 3:56pm History of marijuana use January 23, 2025 11:18am January 23, 2025 11:1 8am Supervision of high-risk January 23, 2025 11:18am History of marijuana use February 14 12:47pm February 14, 2025 12 :47pm Supervision of high-risk Augus t 2024 12:47pm History of marijuana use March 01, 2025 2:44pm March 01, 2025 2:44pm Supervision of high-risk [facility] 2024 2:44pm History of marijuana use March 14, 2025 9:34am March 14, 2025 9:34am Supervision of high-risk [facility] 2024 9:34am History of marijuana use March 29 10:07am March 29, 2025 10 :07am Supervision of high-risk Octob er 2024 10:07am History of marijuana use April 11, 025 10:50am April 11, 2025 1 0:50am Supervision of high-risk Octob er 2024 10:50am History of marijuana use April 18, 025 9:32am April 18, 2025 9 :32am Supervision of high-risk Octob er 2024 9:32am History of marijuana use April 24, 2 025 10:54am April 24, 2025 1 0:54am Supervision of high-risk Octob er 2024 10:54am Chief Complaint Admit Date 24 wk ob January 23, 2025 11:1 8am 28 WK OB/GLUCOSE February 14, 2025 12 :47pm 30 wk ob March 01, 2025 2:44pm 31wk ob March 14, 2025 9:34am 33wk1d ob March 29, 2025 10 :07am 35wk ob April 11, 2025 1 0:50am 36wk ob April 18, 2025 9 :32am 36wk6d ob April 24, 2025 1 0:54am 38wk ob May 02, 2025 9 :45am Reason for Visit Admit Date History of marijuana use January 23, 2025 11:18am January 23, 2025 11:1 8am Supervision of high-risk January 23, 2025 11:18am History of marijuana use February 14 12:47pm February 14, 2025 12 :47pm Supervision of high-risk Augus t 2024 12:47pm History of marijuana use March 01, 2025 2:44pm March 01, 2025 2:44pm Supervision of high-risk Septe mb 2024 2:44pm History of marijuana use March 14, 2025 9:34am March 14, 2025 9:34am Supervision of high-risk Septe mber 2024 9:34am History of marijuana use March 29 10:07am March 29, 2025 10 :07am Supervision of high-risk Octob er 2024 10:07am History of marijuana use April 11, 10:50am April 11, 2025 1 0:50am Supervision of high-risk Octob er 2024 10:50am History of marijuana use April 18 9:32am April 18, 2025 9 :32am Supervision of high-risk Octob er 2024 9:32am History of marijuana use April 24 10:54am April 24, 2025 1 0:54am Supervision of high-risk Octob er 2024 10:54am History of marijuana use May 02 9:45am May 02, 2025 9 :45am Supervision of high-risk Novem 2024 9:45am Additional Source Comments Reason for Visit (unrecogniz ed section and content) Reason Onset Date Comments Headache 12/31/2022 Reason Onset Date Comments Error (VOID this visit) 12/31/2022 Reason Comments Headache Health Maintenance Hep C--declines, HIV --declines, Pap--has never had, HPV--declines, COVID--declines Reason Comments Gynecologic Exam Health Maintenance HIV--declines, Hep C --declines,HPV--declines, COVID--has not had Reason Onset Date Comments Ear Problem 08/10/2024 Reason Comments Ear Fullness Right ear X1wk Ear Pressure Care Teams (unrecognized sec tion and content) Science Instructor Relationship Specialty Start Date End Date Adan Babcock MD [address] [place] [address] PCP - General 02/05/21 Science Instructor Relationship Specialty Start Date End Date Adan Babcock MD [address] [place] [id number] PCP - General 02/05/21 Science Instructor Relationship Specialty Start Date End Date Adan Babcock MD [address] [place] [id number] PCP - General 02/05/21 Science Instructor Relationship Specialty Start Date End Date Adan Babcock MD [address] [place] [address] PCP - General 02/05/21 Science Instructor Relationship Specialty Start Date End Date Adan Babcock MD [address] [place] [id number] PCP - General 02/05/21 Team Status: Inactive Member Role Status Dates Joceline Grande CNM Attending Provider Active S tart: October 06, 2024 End: October 06, 2024 Team Status: Inactive Member Role Status Dates Joceline Grande CNM Attending Provider Active S tart: October 06, 2024 End: October 06, 2024 Joceline Grande CNM Referring Provider Active S tart: October 06, 2024 End: October 06, 2024 Team Status: Inactive Member Role Status Dates Dr. Maribel Martínez DO Attending Provider Activ e Start: November 03, 2024 End: November 03, 2024 Team Status: Inactive Member Role Status Dates Garima Christensen NP, [employer]C Attending Provider Active Start: November 29, 2024 End: November 29, 2024 Team Status: Inactive Member Role/Relationship Status Dates Joceline Grande CNM Attending Provider Active S tart: October 06, 2024 End: October 06, 2024 Team Status: Inactive Member Role/Relationship Status Dates Joceline Grande CNM Attending Provider Active S tart: October 06, 2024 End: October 06, 2024 Joceline Grande CNM Referring Provider Active S tart: October 06, 2024 End: October 06, 2024 Team Status: Inactive Member Role/Relationship Status Dates Dr. Maribel Martínez DO Attending Provider Activ e Start: November 03, 2024 End: November 03, 2024 Team Status: Inactive Member Role/Relationship Status Dates Garima Christensen NP, [employer]C Attending Provider Active Start: November 29, 2024 End: November 29, 2024 Team Status: Inactive Member Role/Relationship Status Dates Dr. Lovely Arguello MD Attending Provider Active Start: December 29, 2024 End: December 29, 2024 Team Status: Inactive Member Role/Relationship Status Dates Joceline Grande CNM Attending Provider Active S tart: January 23, 2025 End: January 23, 2025 Team Status: Inactive Member Role/Relationship Status Dates Dr. Maribel Martínez DO Attending Provider Activ e Start: November 03, 2024 End: November 03, 2024 Team Status: Inactive Member Role/Relationship Status Dates Garima Christensen NP, [employer]-C Attending Provider Active Start: November 29, 2024 End: November 29, 2024 Team Status: Inactive Member Role/Relationship Status Dates Dr. Lovely Arguello MD Attending Provider Active Start: December 29, 2024 End: December 29, 2024 Team Status: Inactive Member Role/Relationship Status Dates Joceline Grande CNM Attending Provider Active S tart: January 23, 2025 End: January 23, 2025 Team Status: Inactive Member Role/Relationship Status Dates Garima Christensen [employer], [employer]C Attending Provider Active Start: February 14, 2025 End: February 14, 2025 Team Status: Active Member Role/Relationship Status Dates Joceline Grande CNM Attending Provider Active S tart: February 14, 2025 Joceline Grande CNM Referring Provider Active S tart: February 14, 2025 Team Status: Inactive Member Role/Relationship Status Dates Joceline Grande CNM Attending Provider Active S tart: February 14, 2025 End: February 14, 2025 Joceline Grande CNM Referring Provider Active S tart: February 14, 2025 End: February 14, 2025 Team Status: Inactive Member Role/Relationship Status Dates Dr. Maribel Martínez DO Attending Provider Activ e Start: March 01, 2025 End: March 01, 2025 Team Status: Inactive Member Role/Relationship Status Dates Garima Christensen NP, [employer]C Attending Provider Active Start: November 29, 2024 End: November 29, 2024 Team Status: Inactive Member Role/Relationship Status Dates Dr. Lovely Arguello MD Attending Provider Active Start: December 29, 2024 End: December 29, 2024 Team Status: Inactive Member Role/Relationship Status Dates Joceline Grande CNM Attending Provider Active S tart: January 23, 2025 End: January 23, 2025 Team Status: Inactive Member Role/Relationship Status Dates Garima Christensen NP, [employer]C Attending Provider Active Start: February 14, 2025 End: February 14, 2025 Team Status: Inactive Member Role/Relationship Status Dates Joceline Grande CNM Attending Provider Active S tart: February 14, 2025 End: February 14, 2025 Joceline Grande CNM Referring Provider Active S tart: February 14, 2025 End: February 14, 2025 Team Status: Inactive Member Role/Relationship Status Dates Dr. Maribel Martínez DO Attending Provider Activ e Start: March 01, 2025 End: March 01, 2025 Team Status: Inactive Member Role/Relationship Status Dates Joceline Grande CNM Attending Provider Active S tart: March 14, 2025 End: March 14, 2025 Team Status: Inactive Member Role/Relationship Status Dates Dr. Lovely Argulelo MD Attending physician Active Start: December 29, 2024 End: December 29, 2024 Team Status: Inactive Member Role/Relationship Status Dates Joceline Grande CNM Attending physician Active Start: January 23, 2025 End: January 23, 2025 Team Status: Inactive Member Role/Relationship Status Dates Garima Christensen NP, [employer]-C Attending physician Active Start: February 14, 2025 End: February 14, 2025 Team Status: Inactive Member Role/Relationship Status Dates Joceline Grande CNM Attending physician Active Start: February 14, 2025 End: February 14, 2025 Joceline Grande CNM Referring Provider Active S tart: February 14, 2025 End: February 14, 2025 Team Status: Inactive Member Role/Relationship Status Dates Dr. Maribel Martínez DO Attending physician Acti ve Start: March 01, 2025 End: March 01, 2025 Team Status: Inactive Member Role/Relationship Status Dates Joceline Grande CNM Attending physician Active Start: March 14, 2025 End: March 14, 2025 Team Status: Inactive Member Role/Relationship Status Dates Dr. Maribel Martínez DO Attending physician Acti ve Start: March 29, 2025 End: March 29, 2025 Team Status: Inactive Member Role/Relationship Status Dates Dr. Lovely Arguello MD Attending physician Active Start: April 11, 2025 End: April 11, 2025 Team Status: Inactive Member Role/Relationship Status Dates Garima Christensen NP, [employer]-C Attending physician Active Start: April 18, 2025 End: April 18, 2025 Team Status: Inactive Member Role/Relationship Status Dates Garima Christensen NP, [employer]C Attending physician Active Start: April 18, 2025 End: April 18, 2025 Garima Christensen [employer], [employer]C Referring Provider Active Start: April 18, 2025 End: April 18, 2025 Team Status: Inactive Member Role/Relationship Status Dates Joceline Grande CNM Attending physician Active Start: April 24, 2025 End: April 24, 2025 Team Status: Inactive Member Role/Relationship Status Dates Joceline Grande CNM Attending physician Active Start: January 23, 2025 End: January 23, 2025 Team Status: Inactive Member Role/Relationship Status Dates Garima Christensen NP, [employer]C Attending physician Active Start: February 14, 2025 End: February 14, 2025 Team Status: Inactive Member Role/Relationship Status Dates Joceline Grande CNM Attending physician Active Start: February 14, 2025 End: February 14, 2025 Joceline Grande CNM Referring Provider Active S tart: February 14, 2025 End: February 14, 2025 Team Status: Inactive Member Role/Relationship Status Dates Dr. Maribel Martínez DO Attending physician Acti ve Start: March 01, 2025 End: March 01, 2025 Team Status: Inactive Member Role/Relationship Status Dates Joceline Grande CNM Attending physician Active Start: March 14, 2025 End: March 14, 2025 Team Status: Inactive Member Role/Relationship Status Dates Dr. Maribel Martínez DO Attending physician Acti ve Start: March 29, 2025 End: March 29, 2025 Team Status: Inactive Member Role/Relationship Status Dates Dr. Lovely Arguello MD Attending physician Active Start: April 11, 2025 End: April 11, 2025 Team Status: Inactive Member Role/Relationship Status Dates Garima Christensen NP, [employer]-C Attending physician Active Start: April 18, 2025 End: April 18, 2025 Team Status: Inactive Member Role/Relationship Status Dates Garima Christensen NP, [employer]-C Attending physician Active Start: April 18, 2025 End: April 18, 2025 Garima Christensen NP, [employer]-C Referring Provider Active Start: April 18, 2025 End: April 18, 2025 Team Status: Inactive Member Role/Relationship Status Dates Joceline Grande CNM Attending physician Active Start: April 24, 2025 End: April 24, 2025 Team Status: Inactive Member Role/Relationship Status Dates Dr. Maribel Martínez DO Attending physician Acti ve Start: May 02, 2025 End: May 02, 2025 INFORMATION SOURCE (unrecogn ized section and content) DATE CREATED AUTHOR 08/17/2024 [facility] DATE CREATED AUTHOR AUTHOR'S ORGANIZ ATION 12/20/2024 [facility] DATE CREATED AUTHOR AUTHOR'S ABEL GRIFFITHS 05/12/2025 [facility] Goals (unrecognized section and content) Type Care Experience Labor Preferences-CB /BF classes: encouragedlabor support person: Chiplabor intervention preferences: pain management options preferred: epiduralcut cord/dad catch: yesbreastfeeding: yesPP control planned: discusseddiscussed possible routes of delivery and associated risks: []special requests: [] Type Detail Care Experience svdLabor Preferences -CB/BF classes: encouragedlabor support person: Michaellabor intervention preferences: pain management options preferred: epiduralcut cord/dad catch: yesbreastfeeding: yesPP control planned: discusseddiscussed possible routes of delivery and associated risks: []special requests: [] FOR RECORDS PERTAINING TO PATIENTS WHO ARE OR HAVE BEEN ENROLLED IN A CHEMICAL DEPENDENCY/SUBSTANCEABUSE PROGRAM, SOME INFORMATION MAY BE OMITTED. This clinical summary was aggregated from multiple sources. Caution should be exercised in using it in the provision of clinical care. This summary normalizes information from multiple sources, and as a consequence, information in this document may materially change the coding, format and clinical context of patient data. In addition, data may be omitted in some cases. CLINICAL DECISIONS SHOULD BE BASED ON THE PRIMARY CLINICAL RECORDS. [employer] provides no warranty or guarantee of the accuracy or completeness of information in this document.
[2025-05-19] MEDS: Oxytocin 15 Units/NS 250ml 15 UNITS/250 ML IV.SOLN 83 UNITS IV (02:47)
--- NOTE | 2025-05-19 02:55 | EX.PCM.OBVAG ---
Maternal Data Information WANG Calculator Estimated Delivery Date Method Current WG Current Estimate 05/16/25 LMP (Certain) 40w 3d Other Estimates 05/19/25 Ultrasound #1 40w 0d Vaginal Delivery Vaginal Delivery Information Procedure Performed: Spontaneous Vaginal Delivery Surgeon/Practitioner: Jocelnie Rausch Date of Procedure: 05/19/25 Pre-Procedure Diagnosis: labor Post-Procedure Diagnosis: same as pre-procedure + spontaneous vaginal delivery Type of anesthesia: Epidural Special Medications: methergine 0.2mg IM Estimated Blood Loss: 150cc Time of Delivery: 02:21 Findings Description of procedure: Nica Wallace is a 25 year old, now , who presented at 40w2d to triage for rule-out rupture. Her membranes were found to be intact but she made cervical change and was admitted in active labor. She was augmented with AROM and pitocin. She progressed along the labor curve to 10cm and pushed for ~3.5 hours. Patient delivered the head in the OA presentation. The head was delivered atraumatically and a loose nuchal cord ?1 was identified. The anterior and posterior shoulders delivered without complication followed by the rest of the infant through the cord. Then the was placed on the maternal abdomen. Delayed cord clamping was employed for approximately 60 seconds. Cord was clamped and cut. Cord gases and blood were obtained. Gentle traction was applied to the cord and the placenta delivered spontaneously immediately following it was noted to be intact with three-vessel cord. The perineum and vagina were inspected and noted to have no laceration. EBL was 150 cc. Patient and infant tolerated delivery well. Presentation: Vertex (straight OA) Amniotic Membrane Rupture Type: Artificial (1741) Amniotic Fluid Description: Clear Placental Delivery Description: Spontaneous Placenta Disposition: [facility] Specimen collected: No Cord Vessel Description: 3 Vessels Cord Entanglement: Around neck x 1, loose Nuchal Cord Compression: Without compression Cord Gases: ABG and VBG Infant A Gender: Female (1 minute): 9 (5 minute): 9 Delayed Cord Clamping: Yes Acds Block 1 Operator accountant machine processing: No Post Vaginal Deli Medications given after delivery: IV Pitocin and IM Methergin Episiotomy Description: None Laceration: None Complication Complications: No
[2025-05-20 04:27] VITALS: BP 121/84; PULSE 98; RESP 16; TEMP 36.7; O2SAT 99
[2025-05-20 07:16] VITALS: BP 123/84; PULSE 96; RESP 16; TEMP 36.9; O2SAT 97
--- NOTE | 2025-05-20 10:21 | PCM.DC.SUM ---
Providers Date of Admission: 05/18/25 Primary Care Physician: Sulma Primary Care Phys Reason For Visit: VAG Diagnosis Discharge Diagnosis (1) Labor and delivery indication for care or intervention: Status: Acute Code(s): O75.9 - Complication of labor and delivery, unspecified Medications at Discharge Home Medications QSD45-WM 400 mcg-om3 35 mg-dha 25 mg-epa 5 mg-fish oil chewable tablet 1 tab PO DAILY 09/22/24 magnesium glycinate 100 mg (as glycinate) tablet 100 mg PO QDAY 09/22/24 famotidine 20 mg tablet (Pepcid) 20 mg PO BID #60 tabs 03/01/25 Hospital Course Procedures - (Spontaneous Vaginal Delivery) Summary of Care Provided Hospital Course: Patient presented to labor and delivery and progressed and delivered a viable female with Apgars of 9/9. the patient did well with minimal vaginal bleeding noted. It was felt that she was ready for discharge on day #1. Weight / BMI Weight Weight: 188 lb 4 oz Body Mass Index (BMI) 30.4 PRE- weight 133 lb PRE- Body Mass Index 21.4 (BMI) ABG / Lab / Microbiology Data 05/18/25 14:50 D/C Instructions May resume sexual activity in: 4-6 weeks Call your doctor if you observe: Fever of 101 or Higher, Inability to urinate and Inability to have a bowel movement DC O2, CPAP, BIPAP Needs Home O2 Discharge instructions: No DC home with Oxygen: No When: 6 weeks Meaningful Use Info Meaningful Use Meaningful Use Diagnoses (Choose all that apply): None applicable Discharge Plan Admission Admit Date/Time: 05/18/25 13:05 Primary Reason for Your Visit: Vaginal Delivery Attending Provider: Joceline Rausch Primary Care Provider: Sulma Jimenez Primary Discharge Orders/Prescriptions Prescriptions: No Action [id number] oil 400 mcg-35 mg -25 mg-5 mg tablet,chewable 1 tab PO DAILY magnesium glycinate 100 mg tablet 100 mg PO QDAY famotidine [Pepcid] 20 mg tablet 20 mg PO BID Qty: 60 4RF Referrals / Follow Up: Care PhysicianSulma Primary [Primary Care Provider, Medical] Disposition Disposition (needs filled in before D/C Order can be placed): Home, Self Care
--- NOTE | 2025-05-20 10:41 | CASEMGMT ---
Social Work Assessment Labor and Delivery Unit Patient Address: [address] [place] [address] [place] [address] Phone number: [phone] Date of Referral: 05/20/25 Time of Referral:?[id number] Referred By: Joceline Rausch DO Date of Intervention: 05/20/25 Time of Intervention:?929 Reason for Referral:? father alcoholic History obtained from: medical records, mother of baby (MOB), father of baby (FOB) Household composition: MOB reports that currently residing in her home is herself and FOB. baby to be added to home when ready for discharge. MOB confirms housing is safe and secure. Patient's parent/guardian status:?MOB reports FOB to be Carlton Wallace. MOB reports baby girl, Bianca Hyde, to be their first child. Medical History: ?DHRUV is 25 year old female who is 1, para 0 - now 1 following labor and delivery of . MOB received routine care during with [place]. DHRUV presented to the hospital at 40 weeks gestation on 05/18/25. [place] baby girl, Bianca Hyde, was born weighing 8lbs, 9oz with apgars of 9 and 9 at one and five minutes of life respectively. MOB is breast feeding and baby will be followed by Tr[facility] for pediatrics. Educational Status:?MOB reports graduating high school and having some college classes. 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 MOB works from home and will take 6 weeks of maternity leave. FOB works for a [employer] and will use at least 2 weeks of vacation plus upcoming holidays to stay with baby and MOB. Infant Supplies: MOB reports having obtained all necessary baby supplies, including: car seat, safe sleep space, clothes, diapers, and wipes. Childcare/Caregiver(s):?MOB reports that MOB's mother babysits out of the home and will be providing childcare as necessary when MOB needs it, MOB also reports working from home. MOB states MOB's sister and aunts are also large support systems. Transportation:?MOB report that her and FOB both have reliable transportation. Programs/Agencies Involved: MOB denies any program involvement. Children Services/Legal Issues:?MOB denies any legal or CPS issues. Behavioral Health Issues: ??Mental Health History: MOB denies. Substance Use History: MOB reportedly had THC use that ended in June 2024. MOB was educated on not breast feeding if this resumes. Family History:?MOB denies any family mental health concerns that she is aware of. Drug Screens: MOB received no drug screen on admission due to having no concerns. Family/Social Stressors:? MOB and FOB both deny any specific concerns or stressors at this time. Support Systems: MOB reports that MOB's mother, MOB's sister and aunts are all large support systems. Depression/Shaken Baby/Safe Sleeping: SW educated MOB on signs and symptoms of baby blues and mood and anxiety disorders to be mindful of during this period. SW encouraged MOB to speak with her OB about any struggles with this in order to get the help she needs. SW educated MOB on shaken baby prevention and ABCs of safe sleep. MOB and FOB both expressed understanding. ASSESSMENT:? MOB and baby admitted following labor and delivery. MOB received SW consult due to her father being an alcoholic. MOB reportedly had THC use that ended in June 2024. MOB and FOB report having no agency involvement and no mental health history. MOB and FOB have large support systems and deny any current needs. MOB was observed holding baby appropriately during SW assessment, MOB was talkative and open during SW assessment, and FOB was actively involved in conversation as well. MOB and FOB both receptive to resources provided and discussed. Nursing had no concerns. Safe Plan of Care for infant related to substance use:? N/A due to MOB receiving no drug screen on admission due to having no concerns. PLAN:?? No other services requested or indicated. MOB and baby to be discharged when medically ready. Parents were provided literature regarding: signs and symptoms of baby blues and mood and anxiety disorders, Help Me Grow, shaken baby prevention, ABCs of safe sleep and a list of [facility] resources that are available for them should any needs present themselves. Rosmery Laboy, FINANCIAL REPORTING CONSULTANT, RESPIRATORY SUPPORT TECHNICIAN
== END 2025-05-20 10:55 | disposition home or self-care (01) | DRG 807 ==
LOC: WPOUT 13:07 → WP 13:08
PROVIDERS: Admitting Provider Student in an Organized Health Care Education/Training Program; Referring Provider Student in an Organized Health Care Education/Training Program; Visit Provider Student in an Organized Health Care Education/Training Program
DX: O69.81X0 Labor and delivery complicated by cord around neck, without compression, not applicable or unspecified (principal); Z37.0 Single live birth; O62.2 Other uterine inertia; O76 Abnormality in fetal heart rate and rhythm complicating labor and delivery; Z3A.40 40 weeks gestation of pregnancy
CPT/HCPCS: 59025; 59050; 84112; 85025; 86780; 86850; 86900; 86901; 99221; A4216; G0378; J2405